=== PATIENT | female | born 1940 | race Caucasian/White ===

== ENCOUNTER 2016-06-08 07:23 | Day surgery (SDC) | payer MEDICARE, OTHER ==
[~2016-06-08] VITALS: Ht 172.7 cm; Wt 51.9 kg
[~2016-06-08 07:23] MED LIST: AMLO10 PO; CARB25TA9 PO; DETR2CAP PO; DULO1CAP3 PO; MAGN400T2 PO; MEMA1TAB2 PO; METO25TA3 PO; PANT40TA3 PO; POTA20TA5 PO; ULTR50TA5 PO
[2016-06-08] MEDS ORDERED: CEFU1TAB20 PO (07:45)
[2016-06-08 07:48] VITALS: BP 169/106; PULSE 85; RESP 20; TEMP 98.2; O2SAT 99
[2016-06-08] MEDS ORDERED: SODIUM CHLOR 0.9% 1000 ML INJ 1,000 ML IV SCH (08:00)
[2016-06-08] MEDS ORDERED: SODIUM BICARBONATE 8.4% INJ 50 ML ONE (08:19)
[2016-06-08] MEDS ORDERED: LIDOCAINE 1%/EPINEPHrine 1:100,000 SOLN 20 ML VIAL ONE (08:19)
[2016-06-08] MEDS ORDERED: MIDAZOLAM HCL 2 MG/2 ML VIAL ONE (08:45)
[2016-06-08 09:10] VITALS: BP 184/99; PULSE 90; RESP 20; TEMP 98.3; O2SAT 99
--- NOTE | 2016-06-08 09:50 | RADRPT ---
EXAM DATE/TIME: 06/08/2016 08:50 [facility] COMPARISON: No previous studies available for comparison. INDICATIONS : Pelvic mass. ORAL CONTRAST: No oral contrast ingested. RADIATION DOSE: 16.88 CTDIvol (mGy) MEDICAL HISTORY : Hypertension. SURGICAL HISTORY : Hysterectomy. ENCOUNTER: Initial ACUITY: 1 day PAIN SCALE: 0/10 LOCATION: Left pelvis TECHNIQUE: Volumetric scanning of the pelvis was performed. Using automated exposure control and adjustment of the mA and/or kV according to patient size, radiation dose was kept as low as reasonably achievable t o obtain optimal diagnostic quality images. FINDINGS: Patient arrived for a CT directed biopsy of the PET positive mass in the left lower quadrant. This h as disappeared on the localizer E. images. The CT scan of the pelvis is otherwise unremarkable. Cholo ateral hip arthroplasties are present. CONCLUSION: Previous described "pelvic mass" is no longer evident. Juwan Michelle MD FACR on June 08, 2016 at 9:35 Board Certified Radiologist. This report was verified electronically.
== END 2016-06-08 09:30 | disposition home or self-care (01) ==
LOC: HRAD 07:23 → HRIP 07:23 → HRAD 09:30
PROVIDERS: ATTEND Internal Medicine Hematology & Oncology
DX: R19.00 Intra-abdominal and pelvic swelling, mass and lump, unspecified site (principal); I10 Essential (primary) hypertension; Z53.9 Procedure and treatment not carried out, unspecified reason
CPT/HCPCS: 72192; G0463; J2250; J3010; 99211

== ENCOUNTER 2017-07-27 15:40 | Inpatient (IN) | payer MEDICARE, OTHER ==
[~2017-07-27] VITALS: Ht 172.7 cm; Wt 50.0 kg
[~2017-07-27 15:40] MED LIST changes: -AMLO10 PO; -DULO1CAP3 PO; -MAGN400T2 PO; -METO25TA3 PO; -POTA20TA5 PO; -ULTR50TA5 PO
[2017-07-27 16:04] VITALS: BP 126/67; PULSE 93; RESP 15; TEMP 98.6; O2SAT 97
[2017-07-27 17:06] VITALS: BP 147/88; PULSE 86; RESP 24; O2SAT 97
[2017-07-27 17:20] LABS: AUTOMATED NEUTROPHIL # 4.8 TH/MM3 (1.8-7.7); BASOPHIL # 0.1 TH/MM3 (0-0.2); BASOPHIL % 0.8 % (0.0-2.0); EOSINOPHIL # 0.4 TH/MM3 (0-0.4); EOSINOPHIL % 6.1 % (0.0-4.0); HEMATOCRIT 35.1 % (35.0-46.0); HEMOGLOBIN 11.8 GM/DL (11.6-15.3); LYMPH % 14.5 % (9.0-44.0); MEAN CELL VOLUME 96.3 FL (80.0-100.0); MEAN CORPUSCULAR HEMOGLOBIN 32.4 PG (27.0-34.0); MEAN CORPUSCULAR HGB CONC 33.6 % (32.0-36.0); MEAN PLATELET VOLUME 10.8 FL (7.0-11.0); MONOCYTE # 0.5 TH/MM3 (0-0.9); NEUT % 70.6 % (16.0-70.0); PLATELET COUNT 177 TH/MM3 (150-450); RED BLOOD COUNT 3.65 MIL/MM3 (4.00-5.30); RED CELL DISTRIBUTION WIDTH 13.4 % (11.6-17.2); WHITE BLOOD COUNT 6.9 TH/MM3 (4.0-11.0)
[2017-07-27] MEDS ORDERED: DULO1CAP3 PO (17:26)
[2017-07-27] MEDS ORDERED: MORP1TAB25 PO (17:26)
[2017-07-27] MEDS ORDERED: OXYC1CAP PO (17:26)
[2017-07-27] MEDS ORDERED: DOCU100C15 PO (17:26)
[2017-07-27 17:32] LABS: ALBUMIN 3.7 GM/DL (3.4-5.0); AST (GOT) 24 U/L (15-37); BLOOD UREA NITROGEN 16 MG/DL (7-18); CALCIUM 8.1 MG/DL (8.5-10.1); CHLORIDE 109 MEQ/L (98-107); CREATININE 1.62 MG/DL (0.50-1.00); GLOMERULAR FILTRATION RATE 31 ML/MIN (>89); GLUCOSE,RANDOM 128 MG/DL (74-106); SODIUM (NA) 144 MEQ/L (136-145)
[2017-07-27 17:33] LABS: ALT (GPT) 15 U/L (10-53)
[2017-07-27 17:35] LABS: ALKALINE PHOSPHATASE 65 U/L (45-117); TOTAL BILIRUBIN ADULT 0.5 MG/DL (0.2-1.0)
--- NOTE | 2017-07-27 18:11 | RADRPT ---
EXAM DATE/TIME: 07/27/2017 17:50 [facility] COMPARISON: MRI BRAIN W & W/O CONTRAST, March 23, 2016, 12:26. INDICATIONS : Altered mental status. Fall few days ago. RADIATION DOSE: 66.34 CTDIvol (mGy) MEDICAL HISTORY : Dementia. Parkinsons. Cardiovascular diseaseLung cancer SURGICAL HISTORY : Hysterectomy. Lobectomy. ENCOUNTER: Initial ACUITY: 3 days PAIN SCALE: 0/10 LOCATION: cranial TECHNIQUE: Multiple contiguous axial images were obtained of the head. Using automated exposure control and adj ustment of the mA and/or kV according to patient size, radiation dose was kept as low as reasonably a chievable to obtain optimal diagnostic quality images. DICOM format image data is available electro nically for review and comparison. FINDINGS: CEREBRUM: The ventricles and cortical sulci are mildly widened. There are areas of low density in the right par ietal and right temporal lobes. No evidence of midline shift, mass lesion, hemorrhage. No extra-axia l fluid collections are seen. POSTERIOR FOSSA: The cerebellum and brainstem are intact. The 4th ventricle is midline. The cerebellopontine angle i s unremarkable. EXTRACRANIAL: The visualized portion of the orbits is intact. SKULL: The calvaria is intact. No evidence of skull fracture. CONCLUSION: 1. There is a low-density in the posterior right temporal and right parietal lobes. This could be fro m subacute areas of infarction. 2. No areas of hemorrhage or significant mass effect are seen. Jordi Doll MD on July 27, 2017 at 18:05 Board Certified Radiologist. This report was verified electronically.
--- NOTE | 2017-07-27 18:19 | RADRPT ---
EXAM DATE/TIME: 07/27/2017 17:50 [facility] COMPARISON: No previous studies available for comparison. INDICATIONS : Altered mental status. Fall a few days ago. RADIATION DOSE: 8.71 CTDIvol (mGy) MEDICAL HISTORY : Dementia. Parkinsons. Cardiovascular diseaseLung cancer SURGICAL HISTORY : Hysterectomy. Lobectomy. ENCOUNTER: Initial ACUITY: 3 days PAIN SCALE: 0/10 LOCATION: neck TECHNIQUE: Volumetric scanning of the cervical spine was performed. Multiplanar reconstructions in the sagittal, coronal and oblique axial planes were performed. Using automated exposure control and adjustment o f the mA and/or kV according to patient size, radiation dose was kept as low as reasonably achievable to obtain optimal diagnostic quality images. DICOM format image data is available electronically f or review and comparison. FINDINGS: VERTEBRAE: Normal vertebral body height. ALIGNMENT: No evidence of subluxation. There is a levocurvature of the cervical spine. C2-C3: The bony spinal canal is normal in size. No evidence of disc bulge or herniation. The neural forami na are bilaterally patent. There is mild facet hypertrophy. C3-C4: The bony spinal canal is normal in size. No evidence of disc bulge or herniation. There is left unc overtebral hypertrophy. There is bilateral facet hypertrophy being worse on the left. There is mild n arrowing of the left neural foramen. The right neural foramina is intact. C4-C5: The bony spinal canal is normal in size. No evidence of disc bulge or herniation. There is left unc overtebral hypertrophy. There is bilateral facet hypertrophy being worse on the left. There is narrow ing of the left neural foramen. The right neural foramina is intact. C5-C6: The bony spinal canal is normal in size. No evidence of disc bulge or herniation. The neural forami na are bilaterally patent. There is bilateral facet hypertrophy being worse on the left. C6-C7: The bony spinal canal is normal in size. No evidence of disc bulge or herniation. The neural forami na are bilaterally patent. There is bilateral facet hypertrophy being worse on the right. C7-T1: The bony spinal canal is normal in size. No evidence of disc bulge or herniation. The neural forami na are bilaterally patent. There is mild facet hypertrophy being worse on the right. CONCLUSION: 1. No acute abnormality seen. 2. Chronic change as described above. Jordi Doll MD on July 27, 2017 at 18:12 Board Certified Radiologist. This report was verified electronically.
--- NOTE | 2017-07-27 18:26 | RADRPT ---
EXAM DATE/TIME: 07/27/2017 18:11 [facility] COMPARISON: No previous studies available for comparison. INDICATIONS : Syncope MEDICAL HISTORY : Dementia, cardiovascular disease SURGICAL HISTORY : Hysterectomy. Lobectomoy ENCOUNTER: Initial ACUITY: 1 day PAIN SCORE: Non-responsive. LOCATION: Bilateral chest FINDINGS: A single view of the chest demonstrates the lungs to be symmetrically aerated without evidence of mas s, infiltrate or effusion. The cardiomediastinal contours are unremarkable. Osseous structures are intact. Clips are seen over the lower right chest. CONCLUSION: No acute disease. Jordi Doll MD on July 27, 2017 at 18:22 Board Certified Radiologist. This report was verified electronically.
[2017-07-27] MEDS ORDERED: POTASSIUM CHLORIDE 10 MEQ CONTROLLED RELEASE TAB PO ONE (18:45)
--- NOTE | 2017-07-27 18:49 | PD ---
HPI Chief Complaint: Altered Mental Status Time Seen by Provider: 17:00 Travel History International Travel<30 days: No Contact w/Intl Traveler<30days: No Traveled to known affect area: No History of Present Illness HPI 77-year-old female presents emergency department with her daughter with concerns of her excessive weakness, delusions, frequent falling for an unknown amount of time. Daughter states that she is from [place] and suspects that this is been going on for 2-3 weeks. Says that she has had a decreased appetite and is concerned that she is dehydrated. 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 Patient apparently has not had chemo in over a month. Says that the patient lives at home with a who has dementia. Patient does have chronic nausea and vomiting secondary to her chemo medication. He has patient denies fever, chills, chest pain, shortness of breath, abdominal pain, leg pain. She does state that she has felt weak and has not felt like moving around and about as normal for the last several weeks. She does not know why. PFSH Past Medical History Arthritis: Yes Asthma: No Autoimmune Disease: No Blood Disorders: No Anxiety: Yes Depression: Yes Heart Rhythm Problems: No Cancer: Yes Cardiovascular Problems: Yes High Cholesterol: Yes Chemotherapy: Yes Chest Pain: No Congestive Heart Failure: No COPD: No Cerebrovascular Accident: No Diabetes: No Diminished Hearing: No Endocrine: No GERD: Yes Glaucoma: No Genitourinary: Yes Hepatitis: No Hiatal Hernia: No Hypertension: Yes Immune Disorder: No Kidney Stones: No Medical other: Yes (PARKINSONS, PSORIASIS) Musculoskeletal: Yes Neurologic: Yes Psychiatric: No Reproductive: No Respiratory: No Migraines: No Radiation Therapy: No Renal Failure: No Seizures: No Sickle Cell Disease: No Sleep Apnea: No Thyroid Disease: No Ulcer: No : 2 Para: 2 Tubal Ligation: Yes Past Surgical History Abdominal Surgery: No AICD: No Arteriovenous Shunt: No Body Medical Devices: LENS Cardiac Surgery: No Section: Yes (X 1) Ear Surgery: No Endocrine Surgery: No Eye Surgery: No Genitourinary Surgery: No Gynecologic Surgery: Yes Hysterectomy: Yes Insulin Pump: No Joint Replacement: Yes (CAROLYN HIPS REPLACED) Oral Surgery: No Pacemaker: No Thoracic Surgery: No Tonsillectomy: Yes Other Surgery: Yes (RIGHT LOBECTOMY) Social History Alcohol Use: No Tobacco Use: No (quit 50 years ago) Substance Use: No Allergies-Medications (Allergen,Severity, Reaction): Coded Allergies: penicillin G (Verified Allergy, Severe, RASH, 07/27/17) INTERMEDIATE REACTION milk (Verified Allergy, Mild, G I DISTRESS, 07/27/17) Sulfa (Sulfonamide Antibiotics) (Verified Adverse Reaction, Severe, GI DISTRESS, 07/27/17) INTERMEDIATE REACTION erythromycin base (Verified Adverse Reaction, Severe, GI DISTRESS, 07/27/17 ) INTERMEDIATE REACTION Reported Meds & Prescriptions Reported Meds & Active Scripts Active Pantoprazole (Pantoprazole Sodium) 40 Mg Tab 40 Mg PO DAILY Carbidopa-Levodopa 25-100 Mg Tab 1 Tab PO Q8HR Detrol LA (Tolterodine Tartrate) 2 Mg Cap 2 Mg PO BID Memantine 10 Mg Tab 10 Mg PO BID Reported Morphine ER (Morphine Sulfate) 30 Mg Tab 30 Mg PO BID Duloxetine DR (Duloxetine HCl) 60 Mg Capdr 60 Mg PO DAILY Oxycodone (Oxycodone HCl) 5 Mg Cap 5 Mg PO Q4H PRN Docusate Sodium 100 Mg Cap 100 Mg PO HS Review of Systems Except as stated in HPI: all other systems reviewed are Neg Physical Exam Narrative GENERAL: Well developed, cachectic appearing SKIN: Focused skin assessment warm/dry. HEAD: Atraumatic. Normocephalic. EYES: Pupils equal and round. No scleral icterus. No injection or drainage. ENT: No nasal bleeding or discharge. Mucous membranes pink and moist. NECK: Trachea midline. No JVD. CARDIOVASCULAR: Regular rate and rhythm. No murmur appreciated. RESPIRATORY: No accessory muscle use. Clear to auscultation. Breath sounds equal bilaterally. GASTROINTESTINAL: Abdomen soft, non-tender, nondistended. Hepatic and splenic margins not palpable. MUSCULOSKELETAL: No obvious deformities. No clubbing. No cyanosis. No edema. NEUROLOGICAL: Awake and alert. No obvious cranial nerve deficits. Motor grossly within normal limits. Normal speech. PSYCHIATRIC: Appropriate mood. Flat affect; insight and judgment normal. Data Data Last Documented VS Vital Signs Date Time Temp Pulse Resp B/P (MAP) Pulse Ox O2 Delivery O2 Flow Rate FiO2 07/27/17 17:06 86 24 147/88 (107) 97 Room Air 07/27/17 16:04 98.6 Orders Orders Complete Blood Count With Diff (07/27/17 16:09) Comprehensive Metabolic Panel (07/27/17 16:09) Urinalysis - C+S If Indicated (07/27/17 16:09) Lactic Acid Sepsis Protocol (07/27/17 16:09) Electrocardiogram (07/27/17 17:45) Ammonia (07/27/17 17:45) Creatine Kinase (Cpk) (07/27/17 17:45) Prothrombin Time / Inr (Pt) (07/27/17 17:45) Act Partial Throm Time (Ptt) (07/27/17 17:45) Troponin I (07/27/17 17:45) Thyroid Stimulating Hormone (07/27/17 17:45) Blood Culture (07/27/17 17:45) Chest, Single Ap (07/27/17 17:45) Ct Brain W/O Iv Contrast(Rout) (07/27/17 17:45) Drug Screen, Random Urine (07/27/17 17:45) Ct Cerv Spine W/O Contrast (07/27/17 ) Potassium Chloride (Kcl) (07/27/17 18:45) Ondansetron Inj (Zofran Inj) (07/27/17 19:15) Potassium Chlor 10 Meq Premix (Kcl 10 Me (07/27/17 19:15) Aspirin Chew (Aspirin Chew) (07/28/17 09:00) Urine Culture (07/27/17 18:30) CKMB (07/27/17 18:20) CKMB% (07/27/17 18:20) Ciprofloxacin 400 Mg Premix (Cipro 400 M (07/27/17 21:00) Place In Observation (07/27/17 ) Vital Signs (Adult) Q4H (07/27/17 19:54) Activity Oob With Assistance (07/27/17 19:54) Intake + Output JOSE.QSHIFT (07/27/17 19:54) Diet Regular Basic (07/28/17 Breakfast) Sodium Chlor 0.9% 1000 Ml Inj (Ns 1000 M (07/27/17 21:00) Sodium Chloride 0.9% Flush (Ns Flush) (07/27/17 20:00) Sodium Chloride 0.9% Flush (Ns Flush) (07/27/17 21:00) Ondansetron Inj (Zofran Inj) (07/27/17 20:00) Comprehensive Metabolic Panel (07/28/17 06:00) Complete Blood Count With Diff (07/28/17 06:00) Pt Request For Service (07/27/17 19:54) Speech Therapy Consult-Eval/Tx (07/27/17 19:54) Case Management Consult (07/27/17 19:54) Scd Bilateral/Knee High JOSE.BID (07/27/17 19:54) Carlos Bilateral/Knee High JOSE.QSHIFT (07/27/17 20:06) Acetaminophen (Tylenol) (07/27/17 20:00) Acetamin-Hydrocod 325-5 Mg ([place] 5-325 (07/27/17 20:00) Morphine Inj (Morphine Inj) (07/27/17 20:00) Docusate Sodium-Senna (Norma-Colace) (07/27/17 21:00) Magnesium Hydroxide Liq (Milk Of Magnesi (07/27/17 20:00) Sennosides (Senokot) (07/27/17 20:00) Bisacodyl Supp (Dulcolax Supp) (07/27/17 20:00) Lactulose Liq (Lactulose Liq) (07/27/17 20:00) Aspirin Ec (Ecotrin Ec) (07/28/17 09:00) Pravastatin (Pravachol) (07/28/17 09:00) Carbidopa-Levodopa 25-100 Mg (Sinemet 25 (07/27/17 22:00) Duloxetine (Flako Braga) (07/28/17 09:00) Memantine (Namenda) (07/27/17 21:00) Pantoprazole (Protonix) (07/28/17 09:00) Tolterodine La (Detrol La) (07/27/17 21:00) Admit Order (Ed Use Only) (07/27/17 20:33) Labs Laboratory Tests Test 07/27/17 16:40 07/27/17 18:15 07/27/17 18:20 07/27/17 18:30 White Blood Count 6.9 TH/MM3 Red Blood Count 3.65 MIL/MM3 Hemoglobin 11.8 GM/DL Hematocrit 35.1 % Mean Corpuscular Volume 96.3 FL Mean Corpuscular Hemoglobin 32.4 PG Mean Corpuscular Hemoglobin Concent 33.6 % Red Cell Distribution Width 13.4 % Platelet Count 177 TH/MM3 Mean Platelet Volume 10.8 FL Neutrophils (%) (Auto) 70.6 % Lymphocytes (%) (Auto) 14.5 % Monocytes (%) (Auto) 8.0 % Eosinophils (%) (Auto) 6.1 % Basophils (%) (Auto) 0.8 % Neutrophils # (Auto) 4.8 TH/MM3 Lymphocytes # (Auto) 1.0 TH/MM3 Monocytes # (Auto) 0.5 TH/MM3 Eosinophils # (Auto) 0.4 TH/MM3 Basophils # (Auto) 0.1 TH/MM3 CBC Comment DIFF FINAL Differential Comment Blood Urea Nitrogen 16 MG/DL Creatinine 1.62 MG/DL Random Glucose 128 MG/DL Total Protein 7.0 GM/DL Albumin 3.7 GM/DL Calcium Level 8.1 MG/DL Alkaline Phosphatase 65 U/L Aspartate Amino Transf (AST/SGOT) 24 U/L Alanine Aminotransferase (ALT/SGPT) 15 U/L Total Bilirubin 0.5 MG/DL Sodium Level 144 MEQ/L Potassium Level 3.2 MEQ/L Chloride Level 109 MEQ/L Carbon Dioxide Level 21.0 MEQ/L Anion Gap 14 MEQ/L Estimat Glomerular Filtration Rate 31 ML/MIN Lactic Acid Level 1.4 mmol/L Ammonia 32 MCMOL/L Prothrombin Time 11.7 SEC Prothromb Time International Ratio 1.2 RATIO Activated Partial Thromboplast Time 24.3 SEC Total Creatine Kinase 214 U/L Creatine Kinase MB 2.1 NG/ML Creatine Kinase MB % 1.0 % Troponin I LESS THAN 0.02 NG/ML Thyroid Stimulating Hormone 3rd Gen 1.720 uIU/ML Urine Color YELLOW Urine Turbidity CLEAR Urine pH 5.5 Urine Specific [place] 1.023 Urine Protein 30 mg/dL Urine Glucose (UA) NEG mg/dL Urine Ketones TRACE mg/dL Urine Occult Blood NEG Urine Nitrite NEG Urine Bilirubin NEG Urine Urobilinogen LESS THAN 2.0 MG/DL Urine Leukocyte Esterase NEG Urine RBC 1 /hpf Urine WBC 1 /hpf Urine WBC Clumps RARE Urine Squamous Epithelial Cells <1 /hpf Urine Bacteria RARE /hpf Urine Hyaline Casts 7 /lpf Urine Mucus FEW /lpf Microscopic Urinalysis Comment CATH-CULTURE IND Urine Opiates Screen NEG Urine Barbiturates Screen NEG Urine Amphetamines Screen NEG Urine Benzodiazepines Screen NEG Urine Cocaine Screen NEG Urine Cannabinoids Screen NEG MDM Medical Decision Making Medical Screen Exam Complete: Yes Emergency Medical Condition: Yes Differential Diagnosis Dehydration, CVA, generalized weakness Narrative Course 77-year-old female with a history of Parkinson's disease, dementia, carcinoid tumor of lung, presents emergency department with her daughter with complaints of altered mental status and weakness for an unknown amount of time. Daughter states that the presumed amount of time has been 2-3 weeks since patient has not been herself according to her conversations over the phone. Patient apparently has chemotherapy approximately once a month but has not gone in over a month according to the daughter. Note that the daughter lives in [place]. Vital signs are stable. CBC & BMP Diagram 07/27/17 16:40 Total Protein 7.0, Albumin 3.7, Calcium Level 8.1 L, Alkaline Phosphatase 65, Aspartate Amino Transf (AST/SGOT) 24, Alanine Aminotransferase (ALT/SGPT) 15, Total Bilirubin 0.5 It appears that her kidney function is stable at this point. Urinalysis unconvincing of a urinary tract infection. TSH 1.720 Troponin less than 0.02. Total CK 214 with CK-MB 2.1, CK-MB percent 1.0 Lactic acid 1.4. P.o. potassium initially ordered however, patient states that she is nauseous. Change to potassium IV 10MeQ, Zofran for nausea CT head reads "1. There is a low density and posterior right temporal and right parietal lobes. This could be from subacute areas of infarction. 2. No areas of hemorrhage or significant mass effects are seen." Chest x-ray, cervical spine CT without acute process. Aspirin 162 mg administered p.o. Patient be admitted for generalized weakness, hypokalemia, possible subacute CVA. Diagnosis Primary Impression: Generalized weakness Additional Impressions: Hypokalemia CVA (cerebral vascular accident) Qualified Codes: I63.9 - Cerebral infarction, unspecified Admitting Information Admitting Physician Requests: Admit Condition: Stable Amie Wray Jul 27, 2017 18:49
[2017-07-27] MEDS ORDERED: POTASSIUM CHLOR 10 MEQ PREMIX 100 ML IV ONE (19:15)
[2017-07-27] MEDS ORDERED: ONDANSETRON HCL 4 MG/2 ML VIAL IV PUSH ONE (19:15)
[2017-07-27 19:18] LABS: INTERNATIONAL NORMALIZED RATIO 1.2 RATIO; PROTHROMBIN TIME - PATIENT 11.7 SEC (9.8-11.6)
[2017-07-27 19:24] LABS: BACTERIA, URINE RARE /hpf; BILIRUBIN, URINE NEG (NEG); BLOOD, URINE NEG (NEG); GLUCOSE,URINE NEG (NEG); HYALINE CAST, URINE 7 /lpf (RARE); KETONE, URINE TRACE mg/dL (NEG); MUCUS URINE FEW /lpf (OCC); NITRITE,URINE NEG (NEG); PH, URINE 5.5 (5.0-8.5); SQUAMOUS EPITHELIAL CELL URINE <1 /hpf (0-5); URINE COLOR YELLOW (YELLW/STRAW); URINE LEUKOCYTE ESTERASE NEG (NEG); WHITE BLOOD CELL CLUMPS RARE
[2017-07-27 19:30] LABS: TROPONIN I LESS THAN 0.02 NG/ML (0.02-0.05)
[2017-07-27] MEDS ORDERED: MAGNESIUM HYDROXIDE SUSP 30 ML CUP PO PRN (20:00)
[2017-07-27] MEDS ORDERED: LACTULOSE SYRUP 20 GM/30 ML CUP PO PRN (20:00)
[2017-07-27] MEDS ORDERED: SENNOSIDES 8.6 MG TAB PO PRN (20:00)
[2017-07-27] MEDS ORDERED: ACETAMINOPHEN/HYDROcodone 325 MG/5 MG TAB PO PRN (20:00)
[2017-07-27] MEDS ORDERED: BISACODYL 10 MG SUPP RECTAL PRN (20:00)
[2017-07-27] MEDS ORDERED: MORPHINE SULFATE 2 MG/ML INJ IV PUSH PRN (20:00)
[2017-07-27] MEDS ORDERED: ACETAMINOPHEN 325 MG TAB PO PRN (20:00)
--- NOTE | 2017-07-27 20:07 | HHI.HP ---
[facility] Desiree Styles MD Admission Diagnosis Diagnoses: (1) Encephalopathy Diagnosis: Principal (2) UTI (urinary tract infection) Diagnosis: Principal (3) CVA (cerebral vascular accident) Diagnosis: Principal (4) Renal insufficiency Diagnosis: Principal Travel History International Travel<30 Days: No Contact w/Intl Traveler <30 Da: No Traveled to Known Affected Are: No History of Present Illness This is a 77-year-old female with a PMH of Anxiety, Depression, HTN, Hyperlipidemia and Parkinson's was brought to the ER by Daughter secondary to AMS. Daughter normally lives in [place], [facility] she visits once a month, arrived today and noticed patient confused and "hallucinating". Per Daughter, pt and live together, has advanced Dementia and believes he hasn 't been giving pt her medications. Pt currently awake, alert and oriented to person, place, time. States she has been feeling week/tired for approx 1wk. Denies fever, chills, nausea, vomiting or diarrhea. On arrival, BP 126/67, HR 93, O2 sat 97% RA, Afebrile. CBC unremarkable. K+ 3.2. Creatinine 1.62, previously 1.40 on 04/15/2017. Troponin negative. INR 1.2. UA positive UTI. Urine Drug Screen negative. CT Head with low density posterior right temporal and right parietal lobes possibly subacute areas of infarction. CXR with no acute findings. CT C-spine negative. Review of Systems Except as stated in HPI: all other systems reviewed are Neg ROS: 14 point review of systems otherwise negative. Past Family Social History Past Medical History PMH: Anxiety, Depression, HTN, Hyperlipidemia and Parkinson's Past Surgical History PAST SURGICAL HISTORY: , Hysterectomy, Bilateral Hip Replacement, Tonsillectomy, Right Lobectomy Allergies: Coded Allergies: penicillin G (Verified Allergy, Severe, RASH, 07/27/17) INTERMEDIATE REACTION milk (Verified Allergy, Mild, G I DISTRESS, 07/27/17) Sulfa (Sulfonamide Antibiotics) (Verified Adverse Reaction, Severe, GI DISTRESS, 07/27/17) INTERMEDIATE REACTION erythromycin base (Verified Adverse Reaction, Severe, GI DISTRESS, 07/27/17 ) INTERMEDIATE REACTION Family History PAST FAMILY HISTORY: Reviewed. No h/o DM or CAD Social History PAST SOCIAL HISTORY: Negative for alcohol, tobacco or drugs. Physical Exam Vital Signs Vital Signs Date Time Temp Pulse Resp B/P (MAP) Pulse Ox O2 Delivery O2 Flow Rate FiO2 07/27/17 17:06 86 24 147/88 (107) 97 Room Air 07/27/17 16:04 98.6 93 15 126/67 (86) 97 Physical Exam PE: GENERAL: Thin, frail elderly white female in no acute distress. Appears weak/ tired. Daughter at bedside. HEENT: PERRLA, EOMI. No scleral icterus or conjunctival pallor. No lid lag or facial droop. Dry mucous membranes CARDIOVASCULAR: Regular rate and rhythm. No obvious murmurs to auscultation. No chest tenderness to palpation. RESPIRATORY: No obvious rhonchi or wheezing. Clear to auscultation. Breath sounds equal bilaterally. GASTROINTESTINAL: Abdomen soft, non-tender, nondistended. BS normal. MUSCULOSKELETAL: Extremities without clubbing, cyanosis, or edema. No obvious deformities. NEUROLOGICAL: Awake, alert and oriented x4. No focal neurologic deficits. Moving both upper and lower extremities spontaneously. Laboratory Laboratory Tests Test 07/27/17 16:40 07/27/17 18:15 07/27/17 18:20 07/27/17 18:30 White Blood Count 6.9 Red Blood Count 3.65 Hemoglobin 11.8 Hematocrit 35.1 Mean Corpuscular Volume 96.3 Mean Corpuscular Hemoglobin 32.4 Mean Corpuscular Hemoglobin Concent 33.6 Red Cell Distribution Width 13.4 Platelet Count 177 Mean Platelet Volume 10.8 Neutrophils (%) (Auto) 70.6 Lymphocytes (%) (Auto) 14.5 Monocytes (%) (Auto) 8.0 Eosinophils (%) (Auto) 6.1 Basophils (%) (Auto) 0.8 Neutrophils # (Auto) 4.8 Lymphocytes # (Auto) 1.0 Monocytes # (Auto) 0.5 Eosinophils # (Auto) 0.4 Basophils # (Auto) 0.1 CBC Comment DIFF FINAL Differential Comment Blood Urea Nitrogen 16 Creatinine 1.62 Random Glucose 128 Total Protein 7.0 Albumin 3.7 Calcium Level 8.1 Alkaline Phosphatase 65 Aspartate Amino Transf (AST/SGOT) 24 Alanine Aminotransferase (ALT/SGPT) 15 Total Bilirubin 0.5 Sodium Level 144 Potassium Level 3.2 Chloride Level 109 Carbon Dioxide Level 21.0 Anion Gap 14 Estimat Glomerular Filtration Rate 31 Lactic Acid Level 1.4 Ammonia 32 Prothrombin Time 11.7 Prothromb Time International Ratio 1.2 Activated Partial Thromboplast Time 24.3 Total Creatine Kinase 214 Creatine Kinase MB 2.1 Creatine Kinase MB % 1.0 Troponin I LESS THAN 0.02 Thyroid Stimulating Hormone 3rd Gen 1.720 Urine Color YELLOW Urine Turbidity CLEAR Urine pH 5.5 Urine Specific Hodges 1.023 Urine Protein 30 Urine Glucose (UA) NEG Urine Ketones TRACE Urine Occult Blood NEG Urine Nitrite NEG Urine Bilirubin NEG Urine Urobilinogen LESS THAN 2.0 Urine Leukocyte Esterase NEG Urine RBC 1 Urine WBC 1 Urine WBC Clumps RARE Urine Squamous Epithelial Cells <1 Urine Bacteria RARE Urine Hyaline Casts 7 Urine Mucus FEW Microscopic Urinalysis Comment CATH-CULTURE IND Urine Opiates Screen NEG Urine Barbiturates Screen NEG Urine Amphetamines Screen NEG Urine Benzodiazepines Screen NEG Urine Cocaine Screen NEG Urine Cannabinoids Screen NEG Date/Time Source Procedure Growth Status 07/27/17 18:20 Blood Peripheral Aerobic Blood Culture Pending Received 07/27/17 18:20 Blood Peripheral Anaerobic Blood Culture Pending Received 07/27/17 18:30 Urine Catheterized Urine Urine Culture Pending Received Result Diagram: 07/27/17163907/27/17 1640 Caprini VTE Risk Assessment Parvizrini VTE Risk Assessment: No/Low Risk (score <= 1) Caprini Risk Assessment Model Point Value = 1 Point Value = 2 Point Value = 3 Point Value = 5 Age 41-60 Minor surgery BMI > 25 kg/m2 Swollen legs Varicose veins or History of unexplained or recurrent spontaneous Oral contraceptives or hormone replacement Sepsis (< 1 month) Serious lung disease, including pneumonia (< 1 month) Abnormal pulmonary function Acute myocardial infarction Congestive heart failure (< 1 month) History of inflammatory bowel disease Medical patient at bed rest Age 61-74 Arthroscopic surgery Major open surgery (> 45 min) Laparoscopic surgery (> 45 min) Malignancy Confined to bed (> 72 hours) Immobilizing plaster cast Central venous access Age >= 75 History of VTE Family history of VTE Factor V Leiden Prothrombin [id number] Lupus anticoagulant Anticardiolipin antibodies Elevated serum homocysteine Heparin-induced thrombocytopenia Other congenital or acquired thrombophilia Stroke (< 1 month) Elective arthroplasty Hip, pelvis, or leg fracture Acute spinal cord injury (< 1 month) Prophylaxis Regimen Total Risk Factor Score Risk Level Prophylaxis Regimen 0-1 Low Early ambulation 2 Moderate Order ONE of the following: *Sequential Compression Device (SCD) *Heparin 5000 units SQ BID 3-4 Higher Order ONE of the following medications: *Heparin 5000 units SQ TID *Enoxaparin/Lovenox 40 mg SQ daily (WT < 150 kg, CrCl > 30 mL/min) *Enoxaparin/Lovenox 30 mg SQ daily (WT < 150 kg, CrCl > 10-29 mL/min) *Enoxaparin/Lovenox 30 mg SQ BID (WT < 150 kg, CrCl > 30 mL/min) AND/OR *Sequential Compression Device (SCD) 5 or more Highest Order ONE of the following medications: *Heparin 5000 units SQ TID (Preferred with Epidurals) *Enoxaparin/Lovenox 40 mg SQ daily (WT < 150 kg, CrCl > 30 mL/min) *Enoxaparin/Lovenox 30 mg SQ daily (WT < 150 kg, CrCl > 10-29 mL/min) *Enoxaparin/Lovenox 30 mg SQ BID (WT < 150 kg, CrCl > 30 mL/min) AND *Sequential Compression Device (SCD) Assessment and Plan Problem List: (1) Encephalopathy ICD Code: G93.40 - Encephalopathy, unspecified (2) CVA (cerebral vascular accident) ICD Code: I63.9 - Cerebral infarction, unspecified Status: Acute (3) UTI (urinary tract infection) ICD Code: N39.0 - Urinary tract infection, site not specified (4) Renal insufficiency ICD Code: N28.9 - Disorder of kidney and ureter, unspecified Assessment and Plan A/P: 1. Encephalopathy: Likely multifactorial-UTI/Dehydration/CVA/Dementia. CT Head w/ subacute CVA, no acute findings, images reviewed by me. Neuro Cheks. Resume home Sinemet/Namenda. 2. CVA: CT Head w/ likely subacute CVA right temporal and right parietal lobes , images reviewed by me. Start ASA and Statin. PT for eval/tx. Speech Consult for Swallow Eval. Consult Neurology for further recommendations. 3. UTI: U/a w/ UTI, follow up urine cultures, start IV Cipro, IVF. 4. Renal Insufficiency: Acute on Chronic. Creatinine 1.62, previously 1.40 on 04/15/2017. IVF for hydration, repeat labs in a.m. 5. DVT Prophylaxis: SCDs/teds. 6. Social work for DC planning as needed. 7. Case discussed at length with the ER physician, lab/record/imaging reviewed by me. Plan discussed at length with patient and patient's daughter at bedside Problem Qualifiers (1) CVA (cerebral vascular accident): Qualified Codes: I63.9 - Cerebral infarction, unspecified Cheyenne Weldon MD Jul 27, 2017 20:07
[2017-07-27] MEDS: DOCUSATE SODIUM 50 MG/SENNA 8.6 MG TAB PO SCH (21:00)
[2017-07-27 22:41] VITALS: BP 185/93; PULSE 86; RESP 18; TEMP 98.1; O2SAT 96
[2017-07-27] MEDS ORDERED: PANTOPRAZOLE SOD 40 MG DELAYED RELEASE TAB PO ONE (23:15)
[2017-07-27] MEDS: CIPROFLOXACIN 400 MG PREMIX 200 ML IV SCH (23:20)
[2017-07-27] MEDS: cloNIDine HCL 0.1 MG TAB PO PRN (23:20)
[2017-07-27] MEDS: CARBIDOPA/LEVODOPA 25 MG/100 MG TAB PO SCH (23:20)
[2017-07-28] MEDS: MEMANTINE HCL 10 MG TAB PO SCH ×3 (00:42→22:18)
[2017-07-28] MEDS: SODIUM CHLORIDE 0.9% FLUSH 10 ML FLUSH IV FLUSH SCH ×3 (00:42→21:00)
[2017-07-28] MEDS: TOLTERODINE TARTRATE 2 MG CAP LA PO SCH ×3 (00:42→22:18)
[2017-07-28] MEDS: SODIUM CHLOR 0.9% 1000 ML INJ 1,000 ML IV SCH ×4 (00:42→22:42)
[2017-07-28] MEDS: ONDANSETRON HCL 4 MG/2 ML VIAL IVP PRN ×3 (00:43→10:17)
[2017-07-28 03:56] VITALS: BP 161/85; PULSE 85; RESP 18; TEMP 98.1; O2SAT 96
[2017-07-28] MEDS: CARBIDOPA/LEVODOPA 25 MG/100 MG TAB PO SCH (06:00)
[2017-07-28 06:39] LABS: AUTOMATED NEUTROPHIL # 4.5 TH/MM3 (1.8-7.7); BASOPHIL % 0.9 % (0.0-2.0); EOSINOPHIL # 0.1 TH/MM3 (0-0.4); EOSINOPHIL % 2.1 % (0.0-4.0); HEMATOCRIT 29.2 % (35.0-46.0); HEMOGLOBIN 9.9 GM/DL (11.6-15.3); LYMPH % 10.9 % (9.0-44.0); LYMPHOCYTE # 0.6 TH/MM3 (1.0-4.8); MEAN CELL VOLUME 95.7 FL (80.0-100.0); MEAN CORPUSCULAR HEMOGLOBIN 32.4 PG (27.0-34.0); MEAN CORPUSCULAR HGB CONC 33.8 % (32.0-36.0); MEAN PLATELET VOLUME 10.9 FL (7.0-11.0); MONO % 4.9 % (0.0-8.0); MONOCYTE # 0.3 TH/MM3 (0-0.9); NEUT % 81.2 % (16.0-70.0); PLATELET COUNT 136 TH/MM3 (150-450); RED BLOOD COUNT 3.05 MIL/MM3 (4.00-5.30); RED CELL DISTRIBUTION WIDTH 13.3 % (11.6-17.2); WHITE BLOOD COUNT 5.5 TH/MM3 (4.0-11.0)
[2017-07-28 07:49] LABS: ALBUMIN 3.1 GM/DL (3.4-5.0); BICARBONATE 19.6 MEQ/L (21.0-32.0); CALCIUM 6.9 MG/DL (8.5-10.1); CALCIUM-PROTEIN CORRECTED 7.6 MG/DL (8.5-10.1); CREATININE 1.53 MG/DL (0.50-1.00); TOTAL BILIRUBIN ADULT 0.4 MG/DL (0.2-1.0); TOTAL PROTEIN 5.7 GM/DL (6.4-8.2)
[2017-07-28] MEDS ORDERED: ASPIRIN 81 MG CHEW TAB CHEW SCH (09:00)
[2017-07-28 09:50] VITALS: BP 186/89; PULSE 83; RESP 18
[2017-07-28] MEDS: PRAVASTATIN SOD 40 MG TAB PO SCH (09:53)
[2017-07-28] MEDS: PANTOPRAZOLE SOD 40 MG DELAYED RELEASE TAB PO SCH (09:53)
[2017-07-28] MEDS: CIPROFLOXACIN 400 MG PREMIX 200 ML IV SCH (09:53)
[2017-07-28] MEDS: ASPIRIN EC 81 MG TABEC PO SCH (09:54)
[2017-07-28] MEDS: DULoxetine HCl DR 60 MG CAP PO SCH (09:54)
[2017-07-28] MEDS: DOCUSATE SODIUM 50 MG/SENNA 8.6 MG TAB PO SCH ×2 (09:54→22:18)
[2017-07-28] MEDS: cloNIDine HCL 0.1 MG TAB PO PRN (10:17)
[2017-07-28] MEDS: SODIUM CHLORIDE 0.9% FLUSH 10 ML FLUSH IV FLUSH PRN ×2 (10:17→15:01)
[2017-07-28 12:35] VITALS: BP 152/79; PULSE 81; RESP 20; TEMP 98.2; O2SAT 96
--- NOTE | 2017-07-28 13:23 | MB ---
cc: Jimmie Salazar MD DATE: 07/28/2017 HISTORY OF PRESENT ILLNESS: She is seen in neurological consultation. She is a 77-year-old woman with history of Parkinson's, some apparent history of dementia and came to the hospital because of altered mentation. Apparently, she cares for her with dementia. The patient tells me it is a 2-way around as he also helps care for her. Daughter visiting from out of state found apparent increasing confusion, hallucinations. She was brought to the hospital. The patient tells me she takes carbidopa 2 tablets every 6 hours, though the list of medication describes as 1 tablet 3 times a day or so. NEUROLOGIC EXAMINATION: Showed the patient to be in some distress. She was nauseated and vomiting, but she was reasonably alert, seems to be grossly oriented, following commands. Appears frail overall. I saw intermittent left hand parkinsonian tremor. She is rigid especially in the lower extremities while lying in bed. It is difficult to flex her knees, but she will wiggle the feet and she started raising either lower extremity on commands. Reflexes were diminished versus absent and plantar responses were flexor bilaterally. DIAGNOSTIC DATA: The CT brain shows possible subacute right temporal infarct. Other ancillary data includes white count today 5.5, hemoglobin 9.9, platelets 136. Sodium 144, potassium 3.4, glucose 122, BUN 16, creatinine 1.53. Urinalysis is negative. ASSESSMENT: 1. Possible subacute right temporal infarct. 2. Parkinson's with dementia. 3. Hallucinations. 4. Encephalopathy. PLAN: We will hold off the Sinemet as this may aggravate hallucinations and confusion. We will request an MRI brain without contrast. Some sedation might be needed. She is on aspirin, Cymbalta, Protonix, memantine. I will follow the neurological course. Otherwise, physical therapy already initiated. Thank you for asking us to assist in her care. Jimmie Salazar MD OFC/SB , 01:03 PM , 01:22 PM
--- NOTE | 2017-07-28 14:20 | HHI.PR ---
Subjective Remarks Pt seen around lunch time Pt feeling nauseous when I saw her, threw up. Admits to epigastric pain due to vomiting. no chest pains, SOB. Objective Vitals Vital Signs Date Time Temp Pulse Resp B/P (MAP) Pulse Ox O2 Delivery O2 Flow Rate FiO2 07/28/17 12:35 98.2 81 20 152/79 (103) 96 07/28/17 09:50 83 18 186/89 (121) 07/28/17 03:56 98.1 85 18 161/85 (110) 96 07/27/17 22:41 98.1 86 18 185/93 (123) 96 07/27/17 21:37 07/27/17 17:06 86 24 147/88 (107) 97 Room Air 07/27/17 16:04 98.6 93 15 126/67 (86) 97 I/O 07/27/17 07/27/17 07/27/17 07/28/17 07/28/17 07/28/17 07:00 15:00 23:00 07:00 15:00 23:00 Intake Total 1200 ml Balance 1200 ml Intake IV Total 1200 ml # Voids 1 Result Diagram: 07/28/17 0507/28/17 05 Objective Remarks GENERAL: Thin, frail elderly white female, Appears weak/tired. HEENT: EOMI. CARDIOVASCULAR: Regular rate and rhythm. No obvious murmurs to auscultation. RESPIRATORY: No obvious wheezing. Clear to auscultation. GASTROINTESTINAL: Abdomen soft, some epigastric tenderness, nondistended. BS normal. MUSCULOSKELETAL: Extremities without edema. No obvious deformities. NEUROLOGICAL: Awake, alert and oriented, Moving both upper and lower extremities spontaneously. some tremors noted in upper extremities A/P Problem List: (1) Encephalopathy ICD Code: G93.40 - Encephalopathy, unspecified (2) CVA (cerebral vascular accident) ICD Code: I63.9 - Cerebral infarction, unspecified Status: Acute (3) UTI (urinary tract infection) ICD Code: N39.0 - Urinary tract infection, site not specified (4) Renal insufficiency ICD Code: N28.9 - Disorder of kidney and ureter, unspecified Assessment and Plan 1. Encephalopathy: Likely multifactorial-UTI/Dehydration/CVA/Dementia. CT Head w/ subacute CVA, no acute findings. continue w Neuro Cheks. hold Sinemet/ Namenda per neuro recs. 2. CVA: CT Head w/ likely subacute CVA right temporal and right parietal lobes. on ASA and Statin. PT for eval/tx. Speech Consult for Swallow Eval. Neurology evaluated the pt and ordered MRI 3. UTI: U/a w/ UTI, follow up urine cultures, on IV Cipro, IVF. thus far, urine and blood cx neg to date 4. Renal Insufficiency: Acute on Chronic. Creatinine 1.62-->1.53, previously 1.40 on 04/15/2017. IVF for hydration, repeat labs in a.m. 5. DVT Prophylaxis: SCDs/teds. 6. n/v: on zofran prn added reglan IV Discharge Planning f/u MRI. Added reglan IV to help w n/v f/u recs from neurology Problem Qualifiers (1) CVA (cerebral vascular accident): Qualified Codes: I63.9 - Cerebral infarction, unspecified Roma Espinosa MD Jul 28, 2017 14:20
[2017-07-28] MEDS ORDERED: LORazepam 2 MG/ML VIAL IV PUSH ONE (14:30)
[2017-07-28] MEDS: METOCLOPRAMIDE HCL 10 MG/2 ML VIAL IV PUSH SCH ×2 (15:01→22:18)
--- NOTE | 2017-07-28 15:43 | RADRPT ---
EXAM DATE/TIME: 07/28/2017 15:10 [facility] COMPARISON: CT BRAIN W/O CONTRAST, July 27, 2017, 17:50. INDICATIONS : CVA. Bilateral lower extremity weakness. MEDICAL HISTORY : Hypertension. Carcinoma, lung. Dementia. SURGICAL HISTORY : Tonsillectomy. Lobectomy. Hysterectomy. Bilateral hip replacement. ENCOUNTER: Initial ACUITY: 1 day PAIN SCORE: 0/10 LOCATION: cranial TECHNIQUE: Multiplanar, multisequence MRI of the brain was performed without contrast. FINDINGS: CEREBRUM: The ventricles are normal for age. There is increased signal seen on the diffusion, flair and T2-ariel ghted images at the posterior right temporal and the right parietal lobes consistent with subacute ar ea of infarction. Hemorrhage is not seen. No evidence of midline shift, mass lesion, hemorrhage. No extraaxial fluid collections are seen. The pituitary gland and suprasellar cistern are normal in con figuration. WHITE MATTER: There are scattered focal areas of increased signal in the cerebral white matter. POSTERIOR FOSSA: The cerebellum and brainstem are intact. The 4th ventricle is midline. The cerebellopontine angle is unremarkable. The cerebellar tonsils are normal in position. DIFFUSION IMAGING: Again noted is the subacute area of infarction involving the right temporal and parietal lobes. EXTRACRANIAL: The visualized portions of the orbits and paranasal sinuses are unremarkable. CONCLUSION: 1. Subacute infarction at the posterior right middle cerebral artery territory involving portions of the right temporal and parietal lobes. The increased signal on the flair, diffusion and T2 images sug gest this is at least 24 hours old. 2. Scattered suspected small vessel ischemic change in the white matter. Jordi Doll MD on July 28, 2017 at 15:36 Board Certified Radiologist. This report was verified electronically.
[2017-07-28 17:20] VITALS: BP 151/83; PULSE 96; RESP 16; TEMP 98.3; O2SAT 97
--- NOTE | 2017-07-28 19:48 | EKG ---
Date Performed: 07/27/2017 Time Performed: 18:54:28 PTAGE: 77 years EKG: Sinus rhythm LEFT ATRIAL ENLARGEMENT INCOMPLETE RIGHT BUNDLE BRANCH BLOCK Since the previous tracing, no signific ant change noted ABNORMAL ECG PREVIOUS TRACING : 07/06/2014 08.52 DOCTOR: Audra Navarro Interpretating Date/Time 07/28/2017 19:46:19
[2017-07-28 20:52] VITALS: BP 163/83; PULSE 90; RESP 18; TEMP 98.7; O2SAT 95
[2017-07-28] MEDS: CIPROFLOXACIN 500 MG TAB PO SCH (22:17)
[2017-07-29 01:09] VITALS: BP 157/82; PULSE 77; RESP 18; TEMP 98.3; O2SAT 95
[2017-07-29] MEDS: METOCLOPRAMIDE HCL 10 MG/2 ML VIAL IV PUSH SCH ×2 (06:13→16:09)
[2017-07-29 07:52] VITALS: BP 169/91; PULSE 78; RESP 18; TEMP 98.4; O2SAT 95
[2017-07-29] MEDS: cloNIDine HCL 0.1 MG TAB PO PRN (09:06)
[2017-07-29] MEDS: ASPIRIN EC 81 MG TABEC PO SCH (09:06)
[2017-07-29] MEDS: MEMANTINE HCL 10 MG TAB PO SCH (09:07)
[2017-07-29] MEDS: DULoxetine HCl DR 60 MG CAP PO SCH (09:07)
[2017-07-29] MEDS: PRAVASTATIN SOD 40 MG TAB PO SCH (09:07)
[2017-07-29] MEDS: TOLTERODINE TARTRATE 2 MG CAP LA PO SCH (09:07)
[2017-07-29] MEDS: PANTOPRAZOLE SOD 40 MG DELAYED RELEASE TAB PO SCH (09:07)
[2017-07-29] MEDS: CIPROFLOXACIN 500 MG TAB PO SCH (09:07)
[2017-07-29] MEDS: DOCUSATE SODIUM 50 MG/SENNA 8.6 MG TAB PO SCH (09:07)
[2017-07-29] MEDS: SODIUM CHLORIDE 0.9% FLUSH 10 ML FLUSH IV FLUSH SCH ×2 (09:07→21:00)
[2017-07-29] MEDS ORDERED: POTASSIUM CHLORIDE 20 MEQ CONTROLLED RELEASE TAB PO ONE (11:00)
--- NOTE | 2017-07-29 11:52 | RADRPT ---
EXAM DATE/TIME: 07/29/2017 10:57 [facility] COMPARISON: No previous studies available for comparison. INDICATIONS : Cerebrovascular accident. MEDICAL HISTORY : Dementia. Parkinson's. Hypercholesterolemia. CVA. Carcinoma, lung. HTN. Dyspnea. GERD. Irritable ann l. Arthritis. Osteoarthritis. Hay fever. Tobacco use. Depression. Anxiety. SURGICAL HISTORY : Tonsillectomy. Tubal ligation. Hysterectomy. Right lobectomy. section. Bilateral hip replace ments. Chemotherapy. Blood transfusions. ENCOUNTER: Initial ACUITY: 1 day PAIN SCORE: 0/10 LOCATION: Bilateral neck PEAK SYSTOLIC VELOCITIES (cm/sec): ICA/CCA RATIO: Right: 0.9 Left: 1.0 ICA: Right: 62 Left: 74 CCA: Right: 70 Left: 73 ECA: Right: 50 Left: 58 VERTEBRAL: Right: 44 antegrade Left: 46 antegrade Elevated flow velocities and ICA/CCA ratios have been found to correlate with increased degrees of vessel stenosis, calculated as percentage of diameter relative to a normal segment of distal ICA/CCA FINDINGS: RIGHT CAROTID: No significant stenosis is visualized. Mild plaquing is noted in the carotid bulb and proximal inter nal carotid artery. The waveforms are within normal limits. LEFT CAROTID: No significant stenosis is visualized. I'll plaquing is noted in the carotid bulb and proximal architectural intern al carotid artery. The waveforms are within normal limits. VERTEBRAL ARTERIES: Antegrade flow is seen in both vertebral arteries. MISCELLANEOUS: None. CONCLUSION: Mild bilateral plaquing with no evidence of a hemodynamically significant stenosis. Ethan Zurita MD on July 29, 2017 at 11:48 Board Certified Radiologist. This report was verified electronically.
[2017-07-29 12:56] VITALS: BP 172/94; PULSE 76; RESP 16; TEMP 98.2; O2SAT 96
--- NOTE | 2017-07-29 14:52 | HHI.PR ---
Subjective Remarks Patient seen this morning. Says she is feeling all right. Denies any chest pain or shortness of breath. Says she feels generally fatigued. Does not feel hungry. Feels weak. Denies any chest pain or shortness of breath. Objective Vital Signs Date Time Temp Pulse Resp B/P (MAP) Pulse Ox O2 Delivery O2 Flow Rate FiO2 07/29/17 12:56 98.2 76 16 172/94 (120) 96 07/29/17 07:52 98.4 78 18 169/91 (117) 95 07/29/17 01:09 98.3 77 18 157/82 (107) 95 07/28/17 20:52 98.7 90 18 163/83 (109) 95 07/28/17 17:20 98.3 96 16 151/83 (105) 97 I/O 07/28/17 07/28/17 07/28/17 07/29/17 07/29/17 07/29/17 07:00 15:00 23:00 07:00 15:00 23:00 Intake Total 1200 ml Balance 1200 ml Intake IV Total 1200 ml # Voids 2 1 2 Result Diagram: 07/28/17 0526 07/28/17 0526 Imaging Last Impressions Brain MRI 07/28/17 0000 Signed Impressions: Service Date/Time: Friday, July 28, 2017 15:10 - CONCLUSION: 1. Subacute infarction at the posterior right middle cerebral artery territory involving portions of the right temporal and parietal lobes. The increased signal on the flair, diffusion and T2 images suggest this is at least 24 hours old. 2. Scattered suspected small vessel ischemic change in the white matter. Jordi Doll MD Head CT 07/27/17 1745 Signed Impressions: Service Date/Time: Thursday, July 27, 2017 17:50 - CONCLUSION: 1. There is a low-density in the posterior right temporal and right parietal lobes. This could be from subacute areas of infarction. 2. No areas of hemorrhage or significant mass effect are seen. Jordi Doll MD Chest X-Ray 07/27/17 174 Signed Impressions: Service Date/Time: Thursday, July 27, 2017 18:11 - CONCLUSION: No acute disease. Jordi Doll MD Cervical Spine CT 07/27/17 0000 Signed Impressions: Service Date/Time: Thursday, July 27, 2017 17:50 - CONCLUSION: 1. No acute abnormality seen. 2. Chronic change as described above. Jordi Doll MD Objective Remarks GENERAL: Patient sitting up in bed. Appears comfortable. Sleeping, wakes up for exam. SKIN: Warm and dry. HEAD: Normocephalic. EYES: No scleral icterus. No injection or drainage. NECK: Supple, trachea midline. No JVD or lymphadenopathy. CARDIOVASCULAR: Regular rate and rhythm without murmurs, gallops, or rubs. RESPIRATORY: Breath sounds equal bilaterally. No accessory muscle use. GASTROINTESTINAL: Abdomen soft, non-tender, nondistended. MUSCULOSKELETAL: No cyanosis, or edema. BACK: Nontender without obvious deformity. No CVA tenderness. A/P Assessment and Plan // Encephalopathy: Likely multifactorial-UTI/Dehydration/CVA/Dementia. CT Head w/ subacute CVA, no acute findings. continue w Neuro Cheks. hold Sinemet/ Namenda per neuro recs. = Appears somnolent but oriented to place, month. = B12 pending. Thiamine started. //Dehydration. Continue IV fluids. = Consult dietitian for calorie count // CVA: CT Head w/ likely subacute CVA right temporal and right parietal lobes. on ASA and Statin. PT for eval/tx. Speech Consult for Swallow Eval. Neurology evaluated the pt and ordered MRI = 07/29. MRI with subacute infarct temporal lobe. Appreciate neurology assistance. Continue to monitor. Ultrasound carotids ordered with no significant stenosis, echocardiogram ordered and pending. // UTI: U/a w/ UTI, follow up urine cultures, on IV Cipro, IVF. thus far, urine and blood cx neg to date = No growth on UA. Discontinue Cipro //Renal Insufficiency: -Secondary to dehydration acute on Chronic. Creatinine 1.62-->1.53, previously 1.40 on 04/15/2017. IVF for hydration, repeat labs in a.m. = Creatinine improving 1.5. Continue to monitor. //n/v: on zofran prn added reglan IV = Appears improved today. Continue to monitor. //DVT Prophylaxis: SCDs/teds. Discharge Planning Follow-up neurology recommendations Continue on IV fluids for dehydration. Await calorie count Robin Cadet MD Jul 29, 2017 14:52
[2017-07-29] MEDS ORDERED: THIAMINE HCL 100 MG TAB PO ONE (15:00)
[2017-07-29] MEDS ORDERED: CALCIUM GLUCONATE INJ 2 GM in DEXTROSE 5% IN WATER 100ML INJ 100 ML IV ONE ×2 (15:00)
[2017-07-29] MEDS: ENALAPRILAT 1.25 MG/ML VIAL IV PUSH PRN (16:11)
[2017-07-29 18:01] VITALS: BP 186/88; PULSE 70; RESP 16; TEMP 98.1; O2SAT 97
[2017-07-29 18:35] VITALS: BP 143/71
[2017-07-29 23:00] VITALS: BP 142/69; PULSE 76; RESP 16; TEMP 98.8; O2SAT 94
[2017-07-30] VITALS (7 sets, daily range): BP systolic 156–198; BP diastolic 79–104; PULSE 67–83; RESP 12–18; TEMP 98.3–99.3; O2SAT 95–98
[2017-07-30] MEDS: METOCLOPRAMIDE HCL 10 MG/2 ML VIAL IV PUSH SCH ×4 (01:10→21:22)
[2017-07-30] MEDS: MEMANTINE HCL 10 MG TAB PO SCH ×3 (01:10→21:21)
[2017-07-30] MEDS: TOLTERODINE TARTRATE 2 MG CAP LA PO SCH ×3 (01:10→21:21)
[2017-07-30] MEDS: DOCUSATE SODIUM 50 MG/SENNA 8.6 MG TAB PO SCH ×3 (01:11→21:21)
[2017-07-30] MEDS: POTASSIUM CHLORIDE INJ 20 MEQ in SODIUM CHLOR 0.9% 1000 ML INJ 1,000 ML IV SCH ×2 (07:06→07:56)
[2017-07-30] MEDS: ASPIRIN EC 81 MG TABEC PO SCH (07:55)
[2017-07-30] MEDS: PANTOPRAZOLE SOD 40 MG DELAYED RELEASE TAB PO SCH (07:55)
[2017-07-30] MEDS: DULoxetine HCl DR 60 MG CAP PO SCH (07:55)
[2017-07-30] MEDS: PRAVASTATIN SOD 40 MG TAB PO SCH (07:55)
[2017-07-30] MEDS: THIAMINE HCL 100 MG TAB PO SCH (07:55)
[2017-07-30] MEDS: SODIUM CHLORIDE 0.9% FLUSH 10 ML FLUSH IV FLUSH SCH ×2 (07:56→21:00)
[2017-07-30] MEDS ORDERED: DOCUSATE SODIUM 50 MG/SENNA 8.6 MG TAB PO ONE (12:15)
[2017-07-30] MEDS ORDERED: MAGNESIUM HYDROXIDE SUSP 30 ML CUP PO ONE (12:15)
[2017-07-30] MEDS ORDERED: CHOLECALCIFEROL (VIT D3) 5000 UNIT CAP PO ONE (12:15)
--- NOTE | 2017-07-30 12:20 | HHI.PR ---
Subjective Remarks Patient says she is feeling all right. Denies any chest pain or shortness of breath. Denies any nausea or vomiting. Last bowel movement several days ago says she is not would have a bowel movement here. Objective Vital Signs Date Time Temp Pulse Resp B/P (MAP) Pulse Ox O2 Delivery O2 Flow Rate FiO2 07/30/17 11:12 98.3 77 16 159/79 (105) 97 07/30/17 07:14 98.3 67 12 156/82 (106) 95 07/30/17 04:22 98.6 72 15 161/86 (111) 97 07/29/17 23:00 98.8 76 16 142/69 (93) 94 07/29/17 18:35 143/71 (95) 07/29/17 18:01 98.1 70 16 186/88 (120) 97 07/29/17 12:56 98.2 76 16 172/94 (120) 96 I/O 07/29/17 07/29/17 07/29/17 07/30/17 07/30/17 07/30/17 07:00 15:00 23:00 07:00 15:00 23:00 Output Total 600 ml Balance -600 ml Output Urine Total 600 ml # Voids 2 3 # Bowel Movements 1 Result Diagram: 07/28/1752507/28/17525 Objective Remarks GENERAL: Patient sitting up in bed. Appears comfortable. Awake, alert. Oriented 3 SKIN: Warm and dry. HEAD: Normocephalic. EYES: No scleral icterus. No injection or drainage. NECK: Supple, trachea midline. No JVD or lymphadenopathy. CARDIOVASCULAR: Regular rate and rhythm without murmurs, gallops, or rubs. RESPIRATORY: Breath sounds equal bilaterally. No accessory muscle use. GASTROINTESTINAL: Abdomen soft, non-tender, nondistended. MUSCULOSKELETAL: No cyanosis, or edema. BACK: Nontender without obvious deformity. No CVA tenderness. A/P Assessment and Plan // Encephalopathy: Likely multifactorial-UTI/Dehydration/CVA/Dementia. CT Head w/ subacute CVA, no acute findings. continue w Neuro Cheks. hold Sinemet/ Namenda per neuro recs. = Appears somnolent but oriented to place, month. = B12 pending. Thiamine started. = Much improved. B12 within normal limits. Continue thiamine. //Dehydration. Continue IV fluids. = Consult dietitian for calorie count = Continue calorie count. Continue IV fluids //Hypovitaminosis D. Order vitamin D. Recheck in 2 months. // CVA: CT Head w/ likely subacute CVA right temporal and right parietal lobes. on ASA and Statin. PT for eval/tx. Speech Consult for Swallow Eval. Neurology evaluated the pt and ordered MRI = 07/29. MRI with subacute infarct temporal lobe. Appreciate neurology assistance. Continue to monitor. Ultrasound carotids ordered with no significant stenosis, echocardiogram ordered and pending. = 07/30. Echocardiogram pending. Aspirin // UTI: U/a w/ UTI, follow up urine cultures, on IV Cipro, IVF. thus far, urine and blood cx neg to date = No growth on UA. Discontinue Cipro //Renal Insufficiency: -Secondary to dehydration acute on Chronic. Creatinine 1.62-->1.53, previously 1.40 on 04/15/2017. IVF for hydration, repeat labs in a.m. = Creatinine improving 1.5. Continue to monitor. = Recheck labs tomorrow //n/v: on zofran prn added reglan IV = Resolved. Continue to monitor. //DVT Prophylaxis: SCDs/teds. Discharge Planning Follow-up neurology recommendations Continue on IV fluids for dehydration. Await calorie count Robin Cadet MD Jul 30, 2017 12:20
--- NOTE | 2017-07-30 14:44 | ECHRPT ---
Indication: CVA/TIA CONCLUSIONS The left ventricular systolic function is normal with an estimated ejection fraction in the range of 55-60%. Normal left ventricular size. Wall thickness is normal. No regional wall motion abnormalities are present. There is trace tricuspid valve regurgitation. The estimated pulmonary arterial pressure is 33 mmHg. BP: 159 / 79 HR: 77 Rhythm: Sinus MEASUREMENTS (Male / Female) Normal Values Technical Quality:Fair 2D ECHO LV Diastolic Diameter PLAX 3.4 cm 4.2 - 5.9 / 3.9 - 5.3 cm LV Systolic Diameter PLAX 2.4 cm IVS Diastolic Thickness 1.1 cm 0.6 - 1.0 / 0.6 - 0.9 cm LVPW Diastolic Thickness 1.1 cm 0.6 - 1.0 / 0.6 - 0.9 cm LV Relative Wall Thickness 0.6 LVOT Diameter 1.9 cm LA Systolic Diameter LX 3.1 cm 3.0 - 4.0 / 2.7 - 3.8 cm LV Ejection Fraction MOD 4C 61.3 % LV Cardiac Index MOD 4C 1910.8 cm/minm LV Ejection Fraction 4C AL 65.3 % LV Cardiac Index 4C AL 2179.5 cm/minm M-MODE Aortic Root Diameter MM 1.9 cm LA Systolic Diameter MM 2.8 cm LA Ao Ratio MM 1.5 AV Cusp Separation MM 1.8 cm DOPPLER AV Peak Velocity 106.0 cm/s AV Peak Gradient 4.5 mmHg LVOT Peak Velocity 79.5 cm/s LVOT Peak Gradient 2.5 mmHg AV Area Cont Eq pk 2.1 cm MV Area PHT 4.3 cm Mitral E Point Velocity 55.3 cm/s Mitral A Point Velocity 99.7 cm/s Mitral E to A Ratio 0.6 LV E' Lateral Velocity 6.9 cm/s Mitral E to LV E' Lateral Ratio 8.1 LV E' Septal Velocity 5.3 cm/s Mitral E to LV E' Septal Ratio 10.5 TR Peak Velocity 240.0 cm/s TR Peak Gradient 23.0 mmHg Right Atrial Pressure 10.0 mmHg Pulmonary Artery Systolic Pressu 33.0 mmHg Right Ventricular Systolic Press 33.0 mmHg PV Peak Velocity 78.7 cm/s PV Peak Gradient 2.5 mmHg FINDINGS LEFT VENTRICLE The left ventricular systolic function is normal with an estimated ejection fraction in the range of 55-60%. Normal left ventricular size. Wall thickness is normal. No regional wall motion abnormalities are present. RIGHT VENTRICLE Normal right ventricular size and systolic function. LEFT ATRIUM The left atrial size is normal. RIGHT ATRIUM The right atrial size is normal. ATRIAL SEPTUM Normal atrial septal thickness without atrial level shunting by limited color doppler interrogation. AORTA The aortic root and proximal ascending aorta are normal in size on limited imaging. MITRAL VALVE Structurally normal mitral valve. No mitral valve stenosis or regurgitation. AORTIC VALVE Trileaflet aortic valve. No aortic valve stenosis or regurgitation. TRICUSPID VALVE Structurally normal tricuspid valve. There is trace tricuspid valve regurgitation. The estimated pulmonary arterial pressure is 33 mmHg. PULMONARY VALVE No pulmonary valve regurgitation or stenosis. VESSELS The inferior vena cava is normal in size. PERICARDIUM No pericardial effusion. Will De Leon MD, FACC, FSCAI (Electronically Signed) Final Date:30 July 2017 14:43
[2017-07-30] MEDS: NS + KCL 20 MEQ INJ 1,000 ML IV SCH (16:31)
[2017-07-30] MEDS: CALCIUM/VITAMIN D 250 MG/125 U TAB PO SCH (21:21)
[2017-07-30] MEDS: ENALAPRILAT 1.25 MG/ML VIAL IV PUSH PRN (21:22)
[2017-07-31] VITALS (7 sets, daily range): BP systolic 163–206; BP diastolic 83–110; PULSE 71–78; RESP 16–20; TEMP 97.6–99.3; O2SAT 95–97
[2017-07-31] MEDS: cloNIDine HCL 0.1 MG TAB PO PRN (00:59)
[2017-07-31] MEDS: NS + KCL 20 MEQ INJ 1,000 ML IV SCH ×2 (01:00→08:36)
[2017-07-31] MEDS: METOCLOPRAMIDE HCL 10 MG/2 ML VIAL IV PUSH SCH ×3 (05:31→20:22)
[2017-07-31] MEDS: SODIUM CHLORIDE 0.9% FLUSH 10 ML FLUSH IV FLUSH SCH ×2 (07:27→20:22)
[2017-07-31 07:31] LABS: AUTOMATED NEUTROPHIL # 3.2 TH/MM3 (1.8-7.7); BASOPHIL # 0.1 TH/MM3 (0-0.2); BASOPHIL % 1.3 % (0.0-2.0); EOSINOPHIL # 0.5 TH/MM3 (0-0.4); HEMATOCRIT 29.3 % (35.0-46.0); HEMOGLOBIN 9.8 GM/DL (11.6-15.3); LYMPH % 19.5 % (9.0-44.0); MEAN CELL VOLUME 95.8 FL (80.0-100.0); MEAN CORPUSCULAR HEMOGLOBIN 31.9 PG (27.0-34.0); MEAN CORPUSCULAR HGB CONC 33.3 % (32.0-36.0); MONO % 9.3 % (0.0-8.0); MONOCYTE # 0.5 TH/MM3 (0-0.9); NEUT % 60.9 % (16.0-70.0); PLATELET COUNT 121 TH/MM3 (150-450); RED BLOOD COUNT 3.06 MIL/MM3 (4.00-5.30); RED CELL DISTRIBUTION WIDTH 13.6 % (11.6-17.2); WHITE BLOOD COUNT 5.2 TH/MM3 (4.0-11.0)
[2017-07-31 07:52] LABS: ALBUMIN 2.8 GM/DL (3.4-5.0); BICARBONATE 22.3 MEQ/L (21.0-32.0); CALCIUM 6.8 MG/DL (8.5-10.1); CREATININE 1.39 MG/DL (0.50-1.00); PHOSPHORUS 3.2 MG/DL (2.5-4.9)
[2017-07-31] MEDS: CHOLECALCIFEROL (VIT D3) 5000 UNIT CAP PO SCH (08:34)
[2017-07-31] MEDS: TOLTERODINE TARTRATE 2 MG CAP LA PO SCH (08:34)
[2017-07-31] MEDS: THIAMINE HCL 100 MG TAB PO SCH (08:35)
[2017-07-31] MEDS: DULoxetine HCl DR 60 MG CAP PO SCH (08:35)
[2017-07-31] MEDS: MEMANTINE HCL 10 MG TAB PO SCH ×2 (08:35→20:22)
[2017-07-31] MEDS: ASPIRIN EC 81 MG TABEC PO SCH (08:35)
[2017-07-31] MEDS: CALCIUM/VITAMIN D 250 MG/125 U TAB PO SCH ×2 (08:35→20:22)
[2017-07-31] MEDS: PANTOPRAZOLE SOD 40 MG DELAYED RELEASE TAB PO SCH (08:36)
[2017-07-31] MEDS: DOCUSATE SODIUM 50 MG/SENNA 8.6 MG TAB PO SCH ×2 (08:36→20:22)
[2017-07-31] MEDS: PRAVASTATIN SOD 40 MG TAB PO SCH (08:36)
[2017-07-31] MEDS: ENALAPRILAT 1.25 MG/ML VIAL IV PUSH PRN (12:37)
--- NOTE | 2017-07-31 19:43 | HHI.PR ---
Subjective Remarks Says she is feeling well. Denies any chest pain shortness of breath. Denies any lightheadedness or dizziness. Objective Vital Signs Date Time Temp Pulse Resp B/P (MAP) Pulse Ox O2 Delivery O2 Flow Rate FiO2 07/31/17 15:24 98.6 74 16 198/100 (132) 96 195/106 (135) Manual Cuff/Auscultation 07/31/17 12:17 206/98 (134) 07/31/17 12:03 98.0 78 20 191/110 (137) 97 07/31/17 06:54 97.6 72 18 166/84 (111) 96 07/31/17 05:39 99.3 71 16 167/83 (111) 95 07/31/17 00:40 176/88 (117) 07/30/17 23:47 98.8 75 18 182/104 (130) 98 07/30/17 21:16 190/92 (124) 07/30/17 21:02 99.3 75 18 198/98 (131) 97 I/O 07/30/17 07/30/17 07/30/17 07/31/17 07/31/17 07/31/17 07:00 15:00 23:00 07:00 15:00 23:00 Intake Total 1514 ml Output Total 600 ml 500 ml Balance -600 ml 1014 ml Intake IV Total 1514 ml Output Urine Total 600 ml 500 ml # Bowel Movements 1 2 Result Diagram: 07/31/17 0655 07/31/17 0655 Objective Remarks GENERAL: Patient sitting up in bed. Appears comfortable. Awake, alert. Oriented 3 no change on exam SKIN: Warm and dry. HEAD: Normocephalic. EYES: No scleral icterus. No injection or drainage. NECK: Supple, trachea midline. No JVD or lymphadenopathy. CARDIOVASCULAR: Regular rate and rhythm without murmurs, gallops, or rubs. RESPIRATORY: Breath sounds equal bilaterally. No accessory muscle use. GASTROINTESTINAL: Abdomen soft, non-tender, nondistended. MUSCULOSKELETAL: No cyanosis, or edema. BACK: Nontender without obvious deformity. No CVA tenderness. A/P Assessment and Plan // Encephalopathy: Likely multifactorial-UTI/Dehydration/CVA/Dementia. CT Head w/ subacute CVA, no acute findings. continue w Neuro Cheks. hold Sinemet/ Namenda per neuro recs. = Appears somnolent but oriented to place, month. = B12 pending. Thiamine started. = Much improved. B12 within normal limits. Continue thiamine. //Dehydration. Continue IV fluids. = Consult dietitian for calorie count = Continue calorie count. Continue IV fluids //Hypernatremia. Sodium 147. Start one half normal saline overnight. Recheck tomorrow. //Hypovitaminosis D. Continue vitamin D. Recheck in 2 months. //Hypokalemia. Continue p.o. replacement. //Hypomagnesemia. Magnesium 1.0. Continue replacement. //Accelerated hypertension. Add nifedipine. // CVA: CT Head w/ likely subacute CVA right temporal and right parietal lobes. on ASA and Statin. PT for eval/tx. Speech Consult for Swallow Eval. Neurology evaluated the pt and ordered MRI = 07/29. MRI with subacute infarct temporal lobe. Appreciate neurology assistance. Continue to monitor. Ultrasound carotids ordered with no significant stenosis, echocardiogram ordered and pending. = 07/31. Echocardiogram unremarkable.. Aspirin // UTI: U/a w/ UTI, follow up urine cultures, on IV Cipro, IVF. thus far, urine and blood cx neg to date = No growth on UA. Discontinue Cipro //Renal Insufficiency: -Secondary to dehydration acute on Chronic. Creatinine 1.62-->1.53, previously 1.40 on 04/15/2017. IVF for hydration, repeat labs in a.m. = Creatinine improving 1.5. Continue to monitor. = Recheck labs tomorrow //n/v: on zofran prn added reglan IV = Resolved. Continue to monitor. //DVT Prophylaxis: SCDs/teds. Discharge Planning Follow-up neurology recommendations Continue on IV fluids for dehydration. Await calorie count Robin Cadet MD Jul 31, 2017 19:43
[2017-07-31] MEDS ORDERED: NIFEdipine 30 MG SUSTAINED RELEASE TAB PO ONE (20:00)
[2017-07-31] MEDS: MAGNESIUM SULFATE 1 GM PREMIX 100 ML IV SCH ×2 (20:23→21:27)
[2017-07-31] MEDS ORDERED: CALCIUM GLUCONATE INJ 1 GM in DEXTROSE 5% IN WATER 100ML INJ 100 ML IV ONE ×2 (21:00)
[2017-08-01 02:19] VITALS: BP 137/71; PULSE 80; RESP 16; TEMP 98.3; O2SAT 94
[2017-08-01] MEDS: METOCLOPRAMIDE HCL 10 MG/2 ML VIAL IV PUSH SCH ×2 (05:27→14:32)
[2017-08-01 05:42] VITALS: BP 125/69; PULSE 81; RESP 16; TEMP 98.5; O2SAT 93
[2017-08-01 06:15] LABS: AUTOMATED NEUTROPHIL # 4.6 TH/MM3 (1.8-7.7); BASOPHIL # 0.1 TH/MM3 (0-0.2); BASOPHIL % 1.3 % (0.0-2.0); EOSINOPHIL # 0.5 TH/MM3 (0-0.4); EOSINOPHIL % 7.3 % (0.0-4.0); HEMATOCRIT 31.6 % (35.0-46.0); HEMOGLOBIN 10.7 GM/DL (11.6-15.3); LYMPH % 16.4 % (9.0-44.0); LYMPHOCYTE # 1.1 TH/MM3 (1.0-4.8); MEAN CELL VOLUME 94.9 FL (80.0-100.0); MEAN CORPUSCULAR HEMOGLOBIN 32.1 PG (27.0-34.0); MEAN CORPUSCULAR HGB CONC 33.8 % (32.0-36.0); MEAN PLATELET VOLUME 11.1 FL (7.0-11.0); MONO % 7.7 % (0.0-8.0); MONOCYTE # 0.5 TH/MM3 (0-0.9); NEUT % 67.3 % (16.0-70.0); PLATELET COUNT 131 TH/MM3 (150-450); RED BLOOD COUNT 3.34 MIL/MM3 (4.00-5.30); RED CELL DISTRIBUTION WIDTH 13.8 % (11.6-17.2); WHITE BLOOD COUNT 6.8 TH/MM3 (4.0-11.0)
[2017-08-01 06:54] LABS: ALBUMIN 3.1 GM/DL (3.4-5.0); CALCIUM 7.2 MG/DL (8.5-10.1); CREATININE 1.2 MG/DL (0.50-1.00); MAGNESIUM 1.5 MG/DL (1.5-2.5); PHOSPHORUS 2.7 MG/DL (2.5-4.9)
[2017-08-01 08:22] VITALS: BP 116/64; PULSE 86; RESP 16; TEMP 96.8; O2SAT 93
[2017-08-01] MEDS ORDERED: NIFEdipine 30 MG SUSTAINED RELEASE TAB PO SCH (09:00)
--- NOTE | 2017-08-01 09:57 | HHI.PR ---
Review/Management Daily Summary 08/01 she is feeling well and ready for rehab mri seen subacute right mca infarct carotid us and echo ok need lipid profile asa (she was not taking at home), statin and rehab continue namenda could also resume sinemet outpt follow up with her neurologist Subjective Subjective Comments No acute events reported No headache Active Medications Current Medications Medications (Trade) Dose Ordered Sig/José Antonio Route Start Time Stop Time Status Last Admin (NS Flush) 2 ml UNSCH PRN IV FLUSH 07/27/17 20:00 07/28/17 15:01 (NS Flush) 2 ml BID IV FLUSH 07/27/17 21:00 07/31/17 07:27 (Zofran Inj) 4 mg Q6H PRN IVP 07/27/17 20:00 07/28/17 10:17 (Tylenol) 650 mg Q6H PRN PO 07/27/17 20:00 ([place] 5-325 Mg) 1 tab Q4H PRN PO 07/27/17 20:00 07/27/17 21:33 (Morphine Inj) 2 mg Q3H PRN IV PUSH 07/27/17 20:00 (Norma-Colace) 1 tab BID PO 07/27/17 21:00 07/31/17 20:22 (Milk Of Magnesia Liq) 30 ml Q12H PRN PO 07/27/17 20:00 (Senokot) 17.2 mg Q12H PRN PO 07/27/17 20:00 (Dulcolax Supp) 10 mg DAILY PRN RECTAL 07/27/17 20:00 (Lactulose Liq) 30 ml DAILY PRN PO 07/27/17 20:00 (Ecotrin Ec) 81 mg DAILY PO 07/28/17 09:00 07/31/17 08:35 (Pravachol) 40 mg DAILY PO 07/28/17 09:00 07/31/17 08:36 (Sinemet 25-100 Mg) 1 tab Q8HR PO 07/27/17 22:00 Future Hold 07/27/17 23:20 (Cymbalta Dr) 60 mg DAILY PO 07/28/17 09:00 07/31/17 08:35 (Namenda) 10 mg BID PO 07/27/17 21:00 07/31/17 20:22 (Protonix) 40 mg DAILY PO 07/28/17 09:00 07/31/17 08:36 (Catapres) 0.1 mg Q6H PRN PO 07/27/17 23:15 07/31/17 00:59 (Reglan Inj) 10 mg Q8HR IV PUSH 07/28/17 14:30 08/01/17 05:27 (Vasotec Inj) 1.25 mg Q6H PRN IV PUSH 07/29/17 15:00 07/31/17 12:37 (Vitamin B1) 100 mg DAILY PO 07/30/17 09:00 07/31/17 08:35 (Vitamin D3) 5,000 units DAILY PO 07/31/17 09:00 07/31/17 08:34 (Oscal-D 250-125) 250 mg Q12HR PO 07/30/17 21:00 07/31/17 20:22 (Procardia Xl) 30 mg DAILY PO 08/01/17 09:00 (Mag-Ox) 400 mg Q24H PO 08/01/17 12:00 Allergies Allergies Coded Allergies penicillin G (Verified Allergy, Severe, RASH, 07/27/17) milk (Verified Allergy, Mild, G I DISTRESS, 07/27/17) Sulfa (Sulfonamide Antibiotics) (Verified Adverse Reaction, Severe, GI DISTRESS, 07/27/17) erythromycin base (Verified Adverse Reaction, Severe, GI DISTRESS, 07/27/17) Exam I&O / VS 08/01/17 08/01/17 08/02/17 15:00 23:00 07:00 # Voids 1 Vital Signs Date Time Temp Pulse Resp B/P (MAP) Pulse Ox O2 Delivery O2 Flow Rate FiO2 08/01/17 08:22 96.8 86 16 116/64 (81) 93 08/01/17 05:42 98.5 81 16 125/69 (87) 93 08/01/17 02:19 98.3 80 16 137/71 (93) 94 07/31/17 19:41 98.9 78 16 163/89 (113) 96 07/31/17 15:24 98.6 74 16 198/100 (132) 96 195/106 (135) Manual Cuff/Auscultation 07/31/17 12:17 206/98 (134) 07/31/17 12:03 98.0 78 20 191/110 (137) 97 Respiratory: Lungs CTA, Non-labored respirations, Symmetrical expansion Cardiology: Normal rate, Normal peripheral perfusion, Regular Rhythm Musculoskeletal: ROM, Tenderness, Swelling Objective Micro and Labs Laboratory Tests Test 08/01/17 05:22 White Blood Count 6.8 Red Blood Count 3.34 Hemoglobin 10.7 Hematocrit 31.6 Mean Corpuscular Volume 94.9 Mean Corpuscular Hemoglobin 32.1 Mean Corpuscular Hemoglobin Concent 33.8 Red Cell Distribution Width 13.8 Platelet Count 131 Mean Platelet Volume 11.1 Neutrophils (%) (Auto) 67.3 Lymphocytes (%) (Auto) 16.4 Monocytes (%) (Auto) 7.7 Eosinophils (%) (Auto) 7.3 Basophils (%) (Auto) 1.3 Neutrophils # (Auto) 4.6 Lymphocytes # (Auto) 1.1 Monocytes # (Auto) 0.5 Eosinophils # (Auto) 0.5 Basophils # (Auto) 0.1 CBC Comment DIFF FINAL Differential Comment Blood Urea Nitrogen 10 Creatinine 1.20 Random Glucose 94 Albumin 3.1 Calcium Level 7.2 Phosphorus Level 2.7 Magnesium Level 1.5 Sodium Level 145 Potassium Level 3.4 Chloride Level 112 Carbon Dioxide Level 24.0 Anion Gap 9 Estimat Glomerular Filtration Rate 43 Date/Time Source Procedure Growth Status 07/27/17 18:20 Blood Peripheral Aerobic Blood Culture - Preliminary NO GROWTH IN 4 DAYS Resulted 07/27/17 18:20 Blood Peripheral Anaerobic Blood Culture - Preliminary NO GROWTH IN 4 DAYS Resulted 07/27/17 18:30 Urine Catheterized Urine Urine Culture - Final NO GROWTH IN 48 HOURS. Complete Jimmie Salazar MD Aug 01, 2017 09:57
--- NOTE | 2017-08-01 10:14 | HHI.PR ---
Subjective Remarks She says she is feeling well. Denies any chest pain or shortness of breath. Denies any nausea or vomiting. Discussed with nursing, who reports that patient is eating well. Objective Vital Signs Date Time Temp Pulse Resp B/P (MAP) Pulse Ox O2 Delivery O2 Flow Rate FiO2 08/01/17 08:22 96.8 86 16 116/64 (81) 93 08/01/17 05:42 98.5 81 16 125/69 (87) 93 08/01/17 02:19 98.3 80 16 137/71 (93) 94 07/31/17 19:41 98.9 78 16 163/89 (113) 96 07/31/17 15:24 98.6 74 16 198/100 (132) 96 195/106 (135) Manual Cuff/Auscultation 07/31/17 12:17 206/98 (134) 07/31/17 12:03 98.0 78 20 191/110 (137) 97 I/O 07/31/17 07/31/17 07/31/17 08/01/17 08/01/17 08/01/17 07:00 15:00 23:00 07:00 15:00 23:00 Intake Total 200 ml 110 ml Balance 200 ml 110 ml Intake IV Total 200 ml 110 ml # Voids 1 Result Diagram: 08/01/1752108/01/17521 Objective Remarks GENERAL: Patient sitting up in bed. Appears comfortable. Awake, alert. Oriented 3 . Again, no change on exam. SKIN: Warm and dry. HEAD: Normocephalic. EYES: No scleral icterus. No injection or drainage. NECK: Supple, trachea midline. No JVD or lymphadenopathy. CARDIOVASCULAR: Regular rate and rhythm without murmurs, gallops, or rubs. RESPIRATORY: Breath sounds equal bilaterally. No accessory muscle use. GASTROINTESTINAL: Abdomen soft, non-tender, nondistended. MUSCULOSKELETAL: No cyanosis, or edema. BACK: Nontender without obvious deformity. No CVA tenderness. A/P Assessment and Plan 08/01: Hypokalemia and hypomagnesemia mild, replaced again. Creatinine continues improving. Hyponatremia has resolved. Will start on daily magnesium replacement. // Encephalopathy: Likely multifactorial-UTI/Dehydration/CVA/Dementia. CT Head w/ subacute CVA, no acute findings. continue w Neuro Cheks. hold Sinemet/ Namenda per neuro recs. = Appears somnolent but oriented to place, month. = B12 pending. Thiamine started. = Much improved. B12 within normal limits. Continue thiamine. //Dehydration. Continue IV fluids. = Consult dietitian for calorie count = Continue calorie count. Continue IV fluids //Hypernatremia. Sodium 147. Start one half normal saline overnight. Recheck tomorrow. //Hypovitaminosis D. Continue vitamin D. Recheck in 2 months. //Hypokalemia. Continue p.o. replacement. //Hypomagnesemia. Magnesium 1.0. Continue replacement. = Proved after replacement. Start on daily replacement. //Accelerated hypertension. Improved after addition of nifedipine. // CVA: CT Head w/ likely subacute CVA right temporal and right parietal lobes. on ASA and Statin. PT for eval/tx. Speech Consult for Swallow Eval. Neurology evaluated the pt and ordered MRI = 07/29. MRI with subacute infarct temporal lobe. Appreciate neurology assistance. Continue to monitor. Ultrasound carotids ordered with no significant stenosis, echocardiogram ordered and pending. = 07/31. Echocardiogram unremarkable.. Aspirin // UTI: U/a w/ UTI, follow up urine cultures, on IV Cipro, IVF. thus far, urine and blood cx neg to date = No growth on UA. Discontinue Cipro //Renal Insufficiency: -Secondary to dehydration acute on Chronic. Creatinine 1.62-->1.53, previously 1.40 on 04/15/2017. IVF for hydration, repeat labs in a.m. = Creatinine improving 1.5. Continue to monitor. = Recheck labs tomorrow //n/v: on zofran prn added reglan IV = Resolved. Continue to monitor. //DVT Prophylaxis: SCDs/teds. Discharge Planning Check lipid profile. This is pending for discharge Continue on IV fluids for dehydration. Await calorie count Robin Cadet MD Aug 01, 2017 10:14
[2017-08-01] MEDS ORDERED: MAGNESIUM SULFATE 1 GM PREMIX 100 ML IV ONE (10:15)
[2017-08-01] MEDS ORDERED: POTASSIUM CHLORIDE 10 MEQ CONTROLLED RELEASE TAB PO ONE (10:15)
[2017-08-01] MEDS: DOCUSATE SODIUM 50 MG/SENNA 8.6 MG TAB PO SCH (10:15)
[2017-08-01] MEDS: PRAVASTATIN SOD 40 MG TAB PO SCH (10:16)
[2017-08-01] MEDS: CHOLECALCIFEROL (VIT D3) 5000 UNIT CAP PO SCH (10:16)
[2017-08-01] MEDS: MEMANTINE HCL 10 MG TAB PO SCH (10:16)
[2017-08-01] MEDS: THIAMINE HCL 100 MG TAB PO SCH (10:16)
[2017-08-01] MEDS: DULoxetine HCl DR 60 MG CAP PO SCH (10:16)
[2017-08-01] MEDS: ASPIRIN EC 81 MG TABEC PO SCH (10:16)
[2017-08-01] MEDS: CALCIUM/VITAMIN D 250 MG/125 U TAB PO SCH (10:16)
[2017-08-01] MEDS: PANTOPRAZOLE SOD 40 MG DELAYED RELEASE TAB PO SCH (10:19)
[2017-08-01] MEDS ORDERED: THIA100 PO (10:19)
[2017-08-01] MEDS ORDERED: CALC250 PO (10:19)
[2017-08-01] MEDS: SODIUM CHLORIDE 0.9% FLUSH 10 ML FLUSH IV FLUSH SCH (10:20)
[2017-08-01] MEDS ORDERED: PRAV40TA PO (10:29)
[2017-08-01] MEDS ORDERED: MAGN400T2 PO (10:29)
[2017-08-01] MEDS ORDERED: ECASA81 PO (10:29)
[2017-08-01] MEDS ORDERED: NIFE30TA8 PO (10:29)
[2017-08-01 10:53] LABS: CHOLESTEROL/ HDL RATIO 2.94 RATIO; HDL CHOLESTEROL 45.9 MG/DL (40.0-60.0)
[2017-08-01] MEDS ORDERED: MAGNESIUM OXIDE 400 MG TAB PO SCH (12:00)
[2017-08-01 13:20] VITALS: BP 125/67; PULSE 79; RESP 16; TEMP 98.7; O2SAT 96
[2017-08-01 16:27] VITALS: BP 119/64; PULSE 75; RESP 16; TEMP 98.6; O2SAT 95
[2017-08-01] MEDS ORDERED: CHOL5000 PO (17:26)
[2017-08-02] MEDS ORDERED: MAGNESIUM OXIDE 400 MG TAB PO SCH (09:00)
== END 2017-08-01 18:30 | DRG 64 ==
LOC: NEPC 15:40 → NEDA 20:35 → INTOOBSV 20:35 → NEPFCDU 21:54 → OBSVTOIN 07-29 14:46
PROVIDERS: ADMIT Internal Medicine; ATTEND Internal Medicine
DX: I63.9 Cerebral infarction, unspecified (principal); G93.40 Encephalopathy, unspecified; E87.0 Hyperosmolality and hypernatremia; R64 Cachexia; Z68.1 Body mass index [BMI] 19.9 or less, adult; G20 Parkinson's disease; I12.9 Hypertensive chronic kidney disease with stage 1 through stage 4 chronic kidney disease, or unspecified chronic kidney disease; F32.9 Major depressive disorder, single episode, unspecified; E87.6 Hypokalemia; M19.90 Unspecified osteoarthritis, unspecified site; K21.9 Gastro-esophageal reflux disease without esophagitis; E78.5 Hyperlipidemia, unspecified; N18.9 Chronic kidney disease, unspecified; L40.9 Psoriasis, unspecified; E86.0 Dehydration; E55.9 Vitamin D deficiency, unspecified; T45.1X5A Adverse effect of antineoplastic and immunosuppressive drugs, initial encounter; R11.2 Nausea with vomiting, unspecified; D3A.090 Benign carcinoid tumor of the bronchus and lung; F02.80 Dementia in other diseases classified elsewhere, unspecified severity, without behavioral disturbance, psychotic disturbance, mood disturbance, and anxiety; F41.9 Anxiety disorder, unspecified; Z87.891 Personal history of nicotine dependence; Z88.0 Allergy status to penicillin; Z88.1 Allergy status to other antibiotic agents; Z88.2 Allergy status to sulfonamides; Z91.011 Allergy to milk products; Z96.643 Presence of artificial hip joint, bilateral
CPT/HCPCS: 70450; 70551; 71045; 72125; 80053; 80061; 80069; 80307; 81001; 82140; 82306; 82550; 82552; 82607; 83605; 83735; 83970; 84443; 84484; 85025; 85610; 85730; 87040; 87086; 93005; 93306; 93880; 96361; 96365; 96366; 96375; 96376; G0378; G8987-GP; G8988-GP; J0610; J0744; J2060; J2405; J2765; J3475; J3480; J7030

== ENCOUNTER 2017-10-10 11:51 | Inpatient (IN) | payer MEDICARE, OTHER ==
[2017-10-10] VITALS (11 sets, daily range): BP systolic 168–198; BP diastolic 88–105; PULSE 76–89; RESP 14–18; TEMP 97.9–98.8; O2SAT 94–98
[~2017-10-10] VITALS: Ht 170.2 cm; Wt 49.8 kg
[~2017-10-10 11:51] MED LIST changes: +CALC250 PO; +CHOL5000 PO; -DETR2CAP PO; +DOCU100C15 PO; +DULO1CAP3 PO; +ECASA81 PO; +MAGN400T2 PO; +NIFE30TA8 PO; +PRAV40TA PO; +THIA100 PO
--- NOTE | 2017-10-10 12:34 | RADRPT ---
EXAM DATE: 10/10/2017 12:25 PM EDT AGE/SEX: 77 years / Female INDICATIONS: Fever CLINICAL DATA: This is the patient's initial encounter. Patient reports that signs and symptoms have been present for 1 day and indicates a pain score of Nonresponsive. MEDICAL/SURGICAL HISTORY: . Dementia. Parkinson's. Hypercholesterolemia. CVA. Carcinoma, lung. HTN. Dyspnea. GERD. Irritable bowel. Arthritis. Osteoarthritis. Hay fever. Tobacco use. Depression. Anxiety. . Tonsillectomy. Tubal ligation. Hysterectomy. Right lobectomy. section. Bilater al hip replace ments. Chemotherapy. Blood transfusions. COMPARISON: [facility] – [place], CHEST SINGLE AP, 07/27/2017. . FINDINGS: Portable AP view of the chest demonstrates a normal-sized cardiac silhouette with calcification of th e aorta. EKG lines overlie the patient no effusion, consolidation, or pneumothorax is identified. The bones and soft tissues demonstrate no acute finding. CONCLUSION: No acute cardiopulmonary abnormality is identified. Electronically signed by: Jordi Ordaz MD 10/10/2017 12:33 PM EDT
[2017-10-10] MEDS ORDERED: METOCLOPRAMIDE HCL 10 MG/2 ML VIAL IV PUSH ONE (12:45)
[2017-10-10 12:50] LABS: AUTOMATED NEUTROPHIL # 3.5 TH/MM3 (1.8-7.7); BASOPHIL # 0.1 TH/MM3 (0-0.2); BASOPHIL % 1.4 % (0.0-2.0); EOSINOPHIL # 0.4 TH/MM3 (0-0.4); EOSINOPHIL % 8.1 % (0.0-4.0); HEMATOCRIT 32.8 % (35.0-46.0); HEMOGLOBIN 10.8 GM/DL (11.6-15.3); LYMPH % 16.4 % (9.0-44.0); LYMPHOCYTE # 0.9 TH/MM3 (1.0-4.8); MEAN CELL VOLUME 95.7 FL (80.0-100.0); MEAN CORPUSCULAR HEMOGLOBIN 31.5 PG (27.0-34.0); MEAN CORPUSCULAR HGB CONC 32.9 % (32.0-36.0); MEAN PLATELET VOLUME 10.8 FL (7.0-11.0); MONO % 7.4 % (0.0-8.0); MONOCYTE # 0.4 TH/MM3 (0-0.9); NEUT % 66.7 % (16.0-70.0); PLATELET COUNT 123 TH/MM3 (150-450); RED BLOOD COUNT 3.43 MIL/MM3 (4.00-5.30); WHITE BLOOD COUNT 5.2 TH/MM3 (4.0-11.0)
[2017-10-10 13:00] LABS: INTERNATIONAL NORMALIZED RATIO 1.1 RATIO; PROTHROMBIN TIME - PATIENT 11.1 SEC (9.8-11.6)
[2017-10-10 13:10] LABS: BILIRUBIN, URINE NEG (NEG); BLOOD, URINE NEG (NEG); GLUCOSE,URINE NEG (NEG); KETONE, URINE NEG (NEG); MUCUS URINE FEW /lpf (OCC); NITRITE,URINE NEG (NEG); URINE COLOR YELLOW (YELLW/STRAW); URINE LEUKOCYTE ESTERASE NEG (NEG)
[2017-10-10 13:13] LABS: ALBUMIN 3.3 GM/DL (3.4-5.0); AST (GOT) 13 U/L (15-37); BICARBONATE 19.5 MEQ/L (21.0-32.0); BLOOD UREA NITROGEN 21 MG/DL (7-18); CALCIUM 7.8 MG/DL (8.5-10.1); CHLORIDE 112 MEQ/L (98-107); CREATININE 1.48 MG/DL (0.50-1.00); GLOMERULAR FILTRATION RATE 34 ML/MIN (>89); GLUCOSE,RANDOM 94 MG/DL (74-106); MAGNESIUM 1.3 MG/DL (1.5-2.5); SODIUM (NA) 143 MEQ/L (136-145)
[2017-10-10 13:14] LABS: ALT (GPT) 10 U/L (10-53)
[2017-10-10 13:24] LABS: ALKALINE PHOSPHATASE 68 U/L (45-117); TOTAL BILIRUBIN ADULT 0.5 MG/DL (0.2-1.0); TROPONIN I LESS THAN 0.02 NG/ML (0.02-0.05)
--- NOTE | 2017-10-10 13:24 | PD ---
HPI Chief Complaint: General Weakness Time Seen by Provider: 12:09 Travel History International Travel<30 days: No Contact w/Intl Traveler<30days: No Traveled to known affect area: No History of Present Illness HPI 77-year-old female that presents to the ED for evaluation of nausea, vomiting, weakness and pain in the right hip. Patient is a poor historian and she has a history of dementia. She does have a history of Parkinson's disease. History is very limited but she does complain of nausea and feeling weak for some time. She has had some basic questions yes or no. No family at bedside during my evaluation. She was brought here by [facility]. No chest pain or shortness of breath. Denies any diarrhea. No bowel movement issues. No urinary issues. She only complains of some right hip pain that is 7 out of 10 but she cannot really tell me how long she has had it. She does have a history of CVA and was admitted here a couple months ago for altered mental status and CVA. Most of the history is obtained from ED nurse report. Allergies to different medications. Unclear if patient has been taking any medications. PFSH Past Medical History Arthritis: Yes Asthma: No Autoimmune Disease: No Blood Disorders: No Anxiety: Yes Depression: Yes Heart Rhythm Problems: No Cancer: Yes (lung) Cardiovascular Problems: Yes High Cholesterol: Yes Chemotherapy: Yes Chest Pain: No Congestive Heart Failure: No COPD: No Cerebrovascular Accident: No Diabetes: No Diminished Hearing: No Endocrine: No GERD: Yes Glaucoma: No Genitourinary: Yes Hepatitis: No Hiatal Hernia: No Hypertension: Yes Immune Disorder: No Implanted Vascular Access Dvce: Yes Kidney Stones: No Medical other: Yes (PARKINSONS, PSORIASIS) Musculoskeletal: Yes Neurologic: Yes Psychiatric: No Reproductive: No Respiratory: No Migraines: No Radiation Therapy: No Renal Failure: No Seizures: No Sickle Cell Disease: No Sleep Apnea: No Thyroid Disease: No Ulcer: No Tetanus Vaccination: Unknown : 2 Para: 2 Tubal Ligation: Yes Past Surgical History Abdominal Surgery: No AICD: No Arteriovenous Shunt: No Body Medical Devices: LENS Cardiac Surgery: No Section: Yes (X 1) Ear Surgery: No Endocrine Surgery: No Eye Surgery: No Genitourinary Surgery: No Gynecologic Surgery: Yes Hysterectomy: Yes Insulin Pump: No Joint Replacement: Yes (CAROLYN HIPS REPLACED) Neurologic Surgery: Yes Oral Surgery: No Pacemaker: No Thoracic Surgery: No Tonsillectomy: Yes Other Surgery: Yes (RIGHT LOBECTOMY) Social History Alcohol Use: No Tobacco Use: No (quit 50 years ago) Substance Use: No Allergies-Medications (Allergen,Severity, Reaction): Coded Allergies: penicillin G (Verified Allergy, Severe, RASH, 10/10/17) INTERMEDIATE REACTION milk (Verified Allergy, Mild, G I DISTRESS, 10/10/17) Sulfa (Sulfonamide Antibiotics) (Verified Adverse Reaction, Severe, GI DISTRESS, 10/10/17) INTERMEDIATE REACTION erythromycin base (Verified Adverse Reaction, Severe, GI DISTRESS, 10/10/17) INTERMEDIATE REACTION Reported Meds & Prescriptions Reported Meds & Active Scripts Active Vitamin D3 (Cholecalciferol) 5,000 Unit Cap 5,000 Units PO DAILY 30 Days Magnesium Oxide 400 Mg Tab 400 Mg PO DAILY [address] (Aspirin) 81 Mg Tabdr 81 Mg PO DAILY 30 Days Nifedipine ER 24 HR (Nifedipine) 30 Mg Tab 30 Mg PO DAILY 30 Days Pravachol (Pravastatin) 40 Mg Tab 40 Mg PO DAILY 30 Days Gnp Vitamin B-1 (Thiamine HCl) 100 Mg Tab 100 Mg PO DAILY 30 Days Oyster Shell 250 mg + Vit D Tb (Calcium/Vitamin D) 250 Mg Calcium (625 Mg)-125 Unit Tablet 250 Mg PO Q12HR 30 Days Carbidopa-Levodopa 25-100 Mg Tab 1 Tab PO Q8HR Reported Zofran (Ondansetron HCl) 4 Mg Tab 4 Mg PO Q6HR PRN [place] (Hydrocodone-Acetaminophen) 5 Mg-325 Mg Tab 1 Tab PO Q8HR PRN Ditropan (Oxybutynin Chloride) 5 Mg Tab 5 Mg PO Q12HR Memantine 10 Mg Tab 10 Mg PO DAILY Duloxetine DR (Duloxetine HCl) 60 Mg Capdr 60 Mg PO DAILY Docusate Sodium 100 Mg Cap 100 Mg PO HS Review of Systems ROS Limitations: Poor Historian Except as stated in HPI: all other systems reviewed are Neg Physical Exam Exam Limitations: Poor Historian Narrative GENERAL: SKIN: Warm and dry. HEAD: Atraumatic. Normocephalic. EYES: Pupils equal and round. No scleral icterus. No injection or drainage. ENT: No nasal bleeding or discharge. Mucous membranes pink and moist. Tongue is midline. No uvula deviation. NECK: Trachea midline. No JVD. CARDIOVASCULAR: Regular rate and rhythm. No murmurs, S3, S4. RESPIRATORY: No accessory muscle use. Clear to auscultation. Breath sounds equal bilaterally. GASTROINTESTINAL: Abdomen soft, non-tender, nondistended. Hepatic and splenic margins not palpable. MUSCULOSKELETAL: Extremities without clubbing, cyanosis, or edema. No obvious deformities. Full range of motion of the upper and lower extremities bilaterally. 2+ pulses bilaterally. Some pain noted in the right hip. NEUROLOGICAL: Awake and alert. No obvious cranial nerve deficits. Motor grossly within normal limits. Five out of 5 muscle strength in the arms and legs. Normal speech. PSYCHIATRIC: Appropriate mood and affect; insight and judgment normal. Data Data Last Documented VS Vital Signs Date Time Temp Pulse Resp B/P (MAP) Pulse Ox O2 Delivery O2 Flow Rate FiO2 10/10/17 13:44 80 16 186/99 (128) 98 Room Air 10/10/17 12:07 98.8 Orders Orders Electrocardiogram (10/10/17 12:13) Complete Blood Count With Diff (10/10/17 12:13) Comprehensive Metabolic Panel (10/10/17 12:13) Ckmb (Isoenzyme) Profile (10/10/17 12:13) Troponin I (10/10/17 12:13) Prothrombin Time / Inr (Pt) (10/10/17 12:13) Act Partial Throm Time (Ptt) (10/10/17 12:13) Blood Culture (10/10/17 12:13) Lipase (10/10/17 12:13) Urinalysis - C+S If Indicated (10/10/17 12:13) Cath For Specimen (10/10/17 12:13) Magnesium (Mg) (10/10/17 12:13) Thyroid Stimulating Hormone (10/10/17 12:13) Chest, Single Ap (10/10/17 12:13) Ct Brain W/O Iv Contrast(Rout) (10/10/17 12:13) Iv Access Insert/Monitor (10/10/17 12:13) Ecg Monitoring (10/10/17 12:13) Oximetry (10/10/17 12:13) Metoclopramide Inj (Reglan Inj) (10/10/17 12:45) Ct Abd/Pel W Iv Contrast(Rout) (10/10/17 ) Sodium Chlorid 0.9% 500 Ml Inj (Ns 500 M (10/10/17 13:30) Hip, Bilat(2vw)W Ap Pelvis (10/10/17 ) Iodixanol 320 Inj (Rad Ct) (Visipaque 32 (10/10/17 14:32) Labs Laboratory Tests Test 10/10/17 12:30 10/10/17 12:50 White Blood Count 5.2 TH/MM3 Red Blood Count 3.43 MIL/MM3 Hemoglobin 10.8 GM/DL Hematocrit 32.8 % Mean Corpuscular Volume 95.7 FL Mean Corpuscular Hemoglobin 31.5 PG Mean Corpuscular Hemoglobin Concent 32.9 % Red Cell Distribution Width 14.0 % Platelet Count 123 TH/MM3 Mean Platelet Volume 10.8 FL Neutrophils (%) (Auto) 66.7 % Lymphocytes (%) (Auto) 16.4 % Monocytes (%) (Auto) 7.4 % Eosinophils (%) (Auto) 8.1 % Basophils (%) (Auto) 1.4 % Neutrophils # (Auto) 3.5 TH/MM3 Lymphocytes # (Auto) 0.9 TH/MM3 Monocytes # (Auto) 0.4 TH/MM3 Eosinophils # (Auto) 0.4 TH/MM3 Basophils # (Auto) 0.1 TH/MM3 CBC Comment DIFF FINAL Differential Comment Prothrombin Time 11.1 SEC Prothromb Time International Ratio 1.1 RATIO Activated Partial Thromboplast Time 21.5 SEC Blood Urea Nitrogen 21 MG/DL Creatinine 1.48 MG/DL Random Glucose 94 MG/DL Total Protein 6.0 GM/DL Albumin 3.3 GM/DL Calcium Level 7.8 MG/DL Magnesium Level 1.3 MG/DL Alkaline Phosphatase 68 U/L Aspartate Amino Transf (AST/SGOT) 13 U/L Alanine Aminotransferase (ALT/SGPT) 10 U/L Total Bilirubin 0.5 MG/DL Sodium Level 143 MEQ/L Potassium Level 4.2 MEQ/L Chloride Level 112 MEQ/L Carbon Dioxide Level 19.5 MEQ/L Anion Gap 12 MEQ/L Estimat Glomerular Filtration Rate 34 ML/MIN Total Creatine Kinase 20 U/L Troponin I LESS THAN 0.02 NG/ML Lipase 180 U/L Thyroid Stimulating Hormone 3rd Gen 1.810 uIU/ML Urine Color YELLOW Urine Turbidity CLEAR Urine pH 5.0 Urine Specific [place] 1.020 Urine Protein NEG mg/dL Urine Glucose (UA) NEG mg/dL Urine Ketones NEG mg/dL Urine Occult Blood NEG Urine Nitrite NEG Urine Bilirubin NEG Urine Urobilinogen LESS THAN 2.0 MG/DL Urine Leukocyte Esterase NEG Urine Mucus FEW /lpf Microscopic Urinalysis Comment CULT NOT INDICATED MDM Medical Decision Making Medical Screen Exam Complete: Yes Emergency Medical Condition: Yes Medical Record Reviewed: Yes Interpretation(s) CBC & BMP Diagram 10/10/17 12:30 Total Protein 6.0 L, Albumin 3.3 L, Calcium Level 7.8 L, Magnesium Level 1.3 L, Alkaline Phosphatase 68, Aspartate Amino Transf (AST/SGOT) 13 L, Alanine Aminotransferase (ALT/SGPT) 10, Total Bilirubin 0.[address] 10/10/17 1213 Signed Impressions: CONCLUSION: 1. 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 2. Chronic small vessel ischemic change. 3. No acute intracranial abnormality. Chest X-Ray 10/10/17 1213 Signed Impressions: CONCLUSION: No acute cardiopulmonary abnormality is identified. Hip and Pelvis X-Ray 10/10/17 0000 Signed Impressions: CONCLUSION: Intact total hip arthroplasty bilaterally. Abdomen/Pelvis CT 10/10/17 0000 Signed Impressions: CONCLUSION: Nonobstructing renal stones and cholelithiasis. UA negative troponin and CKMB negative Differential Diagnosis Weakness versus chronic pain versus CVA versus encephalopathy versus UTI versus now she will versus abdominal pain versus electrolyte abnormality Narrative Course 77-year-old female that presents to the ED for evaluation of weakness, nausea. Patient was properly examined and was found to have signs and symptoms of unclear etiology. I did review her medical records and she does have a history of Parkinson's as well as dementia and a CVA recently. Patient herself is a poor historian but does answer some questions appropriately. No family at bedside to give any history on initial evaluation. Labs and imaging were ordered. Patient was given IV fluids as well as IV antiemetics. Labs and imaging showed some the hydration otherwise unremarkable exam. Chronic findings. Case was discussed with my attending Dr. Arredondo who evaluated the patient himself and recommends admission for further evaluation of altered mental status and nausea and vomiting and dehydration. This was discussed with the family and patient who agree with admission. Case discussed with Dr. Adhikari who agrees to admission. Diagnosis Primary Impression: Altered mental status Qualified Codes: R41.82 - Altered mental status, unspecified Additional Impressions: RITA (acute kidney injury) Nausea & vomiting Qualified Codes: R11.2 - Nausea with vomiting, unspecified Admitting Information Admitting Physician Requests: Observation Brent Weathers Oct 10, 2017 13:24
[2017-10-10] MEDS ORDERED: SODIUM CHLORID 0.9% 500 ML INJ 500 ML IV ONE (13:30)
[2017-10-10] MEDS ORDERED: NORC5TAB PO (14:09)
[2017-10-10] MEDS ORDERED: ZOFR4TAB PO (14:09)
[2017-10-10] MEDS ORDERED: OXYB5TAB8 PO (14:09)
[2017-10-10] MEDS ORDERED: MEMA1TAB2 PO (14:09)
--- NOTE | 2017-10-10 14:14 | RADRPT ---
EXAM DATE: 10/10/2017 2:03 PM EDT AGE/SEX: 77 years / Female INDICATIONS: Evaluate hips for trauma CLINICAL DATA: This is the patient's initial encounter. Patient reports that signs and symptoms have been present for 1 day and indicates a pain score of Nonresponsive. MEDICAL/SURGICAL HISTORY: Non-responsive. Non-responsive. COMPARISON: No prior exams available for comparison. FINDINGS: Total hip arthroplasty is seen bilaterally and appear intact without any abnormal blood fl ow, blood pool or delayed uptake. No definite fracture is identified for technique. CONCLUSION: Intact total hip arthroplasty bilaterally. Electronically signed by: Elmer Riggs MD 10/10/2017 2:13 PM EDT
[2017-10-10] MEDS ORDERED: IODIXANOL 320 MG/ML 10 ML VIAL (for Rad CT) IVCONTRAST ONE (14:32)
--- NOTE | 2017-10-10 14:33 | RADRPT ---
EXAM DATE: 10/10/2017 2:24 PM EDT AGE/SEX: 77 years / Female INDICATIONS: Altered mental status. CLINICAL DATA: This is the patient's initial encounter. Patient reports that signs and symptoms have been present for 1 day and indicates a pain score of 0/10. MEDICAL/SURGICAL HISTORY: Hypertension. Carcinoma, lung. Total knee replacement, right. Hysterect radha. RADIATION DOSE: 56.35 CTDI (mGy) COMPARISON: [facility] [place], MRI BRAIN W/O CONTRAST, 07/28/[address] brain 07/27/2017. . TECHNIQUE: CT of the head without contrast. Using automated exposure control and adjustment of the mA and/or kV according to patient size, radiation dose was kept as low as reasonably achievable to ob tain optimal diagnostic quality images. FINDINGS: Cerebrum: Area of prior infarction involving the right temporoparietal lobe. This is stable from the prior study. Periventricular low attenuation change involving both cerebral hemispheres. This is sta ble. The ventricles are normal for age. No evidence of midline shift, mass lesion, hemorrhage or acu te infarction. No extraaxial fluid collections are seen. Posterior Fossa: The cerebellum and brainstem are intact. The 4th ventricle is midline. The cerebe llopontine angle is unremarkable. Extracranial: The visualized portion of the orbits is intact. Skull: The calvaria is intact. No evidence of skull fracture. CONCLUSION: 1. Stable nonhemorrhagic infarction involving the right temporal parietal lobe. 2. Chronic small vessel ischemic change. 3. No acute intracranial abnormality. Electronically signed by: Kike Farley MD 10/10/2017 2:32 PM EDT
--- NOTE | 2017-10-10 14:51 | RADRPT ---
EXAM DATE: 10/10/2017 2:30 PM EDT AGE/SEX: 77 years / Female INDICATIONS: Generalized weakness. Nausea and vomiting x 4 days. CLINICAL DATA: This is the patient's initial encounter. Patient reports that signs and symptoms have been present for 1 day and indicates a pain score of 4/10. MEDICAL/SURGICAL HISTORY: Hypertension. Carcinoma, lung. Tubal ligation. Hysterectomy. ORAL CONTRAST: No oral contrast ingested. RADIATION DOSE: 7.04 CTDI (mGy) COMPARISON: No prior exams available for comparison. TECHNIQUE: Multiple contiguous axial images were obtained through the abdomen and pelvis following b olus infusion of 50 ml Visipaque 320 (iodixanol) nonionic water-soluble contrast as a single exam d ose. No oral contrast ingested. Using automated exposure control and adjustment of the mA and/or kV according to patient size, the radiation dose was kept as low as reasonably achievable to obtain opti mal diagnostic quality images. FINDINGS: Abdomen CT: The liver, spleen, pancreas, adrenals are unremarkable. There is no evidence for any appreciable pat hological adenopathy, free fluid, or bowel obstruction. Gallstones are present within the gallbladder without signs of cholecystitis for technique. There are multiple small stones in the right kidney t he largest measures 5 to 6 mm in size without hydronephrosis. There are simple cysts in both kidneys the largest on the right measures 4.[address] in [address]vic CT: There is no evidence for mass, abscess formation, or any significant adenopathy within the pelvis. Th ere is moderate amount of stool in the colon. CONCLUSION: Nonobstructing renal stones and cholelithiasis. Electronically signed by: Elmer Rigsg MD 10/10/2017 2:49 PM EDT
[2017-10-10] MEDS ORDERED: BISACODYL 10 MG SUPP RECTAL PRN (16:00)
[2017-10-10] MEDS ORDERED: NALOXONE HCL 0.4 MG/ML AMP IV PUSH PRN (16:00)
[2017-10-10] MEDS ORDERED: SENNOSIDES 8.6 MG TAB PO PRN (16:00)
[2017-10-10] MEDS ORDERED: MORPHINE SULFATE 4 MG/ML INJ IV PUSH PRN ×2 (16:00)
[2017-10-10] MEDS ORDERED: ONDANSETRON ODT 4 MG TAB PO PRN (16:00)
[2017-10-10] MEDS ORDERED: METOCLOPRAMIDE HCL 10 MG/2 ML VIAL IV PUSH PRN (16:00)
[2017-10-10] MEDS ORDERED: oxyCODONE/ACETAMINOPHEN 10 MG/325 MG TAB PO PRN (16:00)
[2017-10-10] MEDS ORDERED: oxyCODONE/ACETAMINOPHEN 5 MG/325 MG TAB PO PRN (16:00)
[2017-10-10] MEDS ORDERED: MAGNESIUM HYDROXIDE SUSP 30 ML CUP PO PRN (16:00)
[2017-10-10] MEDS ORDERED: LACTULOSE SYRUP 20 GM/30 ML CUP PO PRN (16:00)
[2017-10-10] MEDS ORDERED: SODIUM CHLORIDE 0.9% FLUSH 10 ML FLUSH IV FLUSH PRN (16:00)
[2017-10-10] MEDS ORDERED: ACETAMINOPHEN 325 MG TAB PO PRN ×2 (16:00)
--- NOTE | 2017-10-10 16:11 | HHI.HP ---
[facility]ician Desiree Styles MD Admission Diagnosis altered mental status, dehydration, vomit Diagnoses: (1) RITA (acute kidney injury) Diagnosis: Principal (2) Nausea & vomiting Diagnosis: Principal (3) Altered mental status Diagnosis: Principal (4) Encephalopathy Diagnosis: Principal (5) Renal insufficiency Diagnosis: Principal (6) CVA (cerebral vascular accident) Diagnosis: Secondary (7) Parkinsonism Diagnosis: Secondary (8) Malignant carcinoid syndrome Diagnosis: Secondary (9) Impaired mobility and activities of daily living Diagnosis: Principal (10) Swallowing difficulty Diagnosis: Principal (11) Vitamin D deficiency Diagnosis: Principal Chief Complaint: Generalized weakness Travel History International Travel<30 Days: No Contact w/Intl Traveler <30 Da: No Traveled to Known Affected Are: No History of Present Illness Patient is a 77-year-old female who presented to the emergency department earlier today with a persistent nausea and vomiting and weakness and some pain in her right hip. Patient is a very poor historian. Has history of dementia also has history of Parkinson's has history of carcinoid tumors. Has history of chronic diarrhea. Has advancing dementia. Not able to answer some questions well very limited history from her and some nausea and been feeling weak. [facility] Patient complains of some right hip pain. Has a history of recent CVA has history of anxiety and depression per chart review as well as arthritis and high cholesterol on lung cancer history of chemotherapy in the past also has a history of Parkinson's and psoriasis Patient will be admitted will consult physical therapy and occupational therapy and speech therapy. Patient will more than likely need chronic placements and she appears not able to take care of herself at all. Will more than likely need a correction facility. Review of Systems ROS Limitations: Altered Mental Status, Poor Historian Constitutional: COMPLAINS OF: Fatigue Gastrointestinal: COMPLAINS OF: Nausea, Vomiting Musculoskeletal: COMPLAINS OF: Joint pain, Muscle aches, Stiffness Neurologic: COMPLAINS OF: Abnormal gait, Localized weakness, Speech Problems, Poor Balance Psychiatric: COMPLAINS OF: Confusion Except as stated in HPI: all other systems reviewed are Neg Past Family Social History Past Medical History Memory loss dementia Chronic dizziness Chronic hypertension Chronic hyper cholesterolemia History of lung cancer with lobectomy Irritable bowel syndrome GERD Parkinson's disease Urinary incontinence Osteoarthritis Anxiety and depression History of chemotherapy in the past Psoriasis Past Surgical History Tonsillectomy Bilateral intraocular lens implant cataract extraction History of tubal ligation Hysterectomy section 1 History of bilateral hip replacements History of right lobectomy Reported Medications Reported Meds & Active Scripts Active Vitamin D3 (Cholecalciferol) 5,000 Unit Cap 5,000 Units PO DAILY 30 Days Magnesium Oxide 400 Mg Tab 400 Mg PO DAILY [address] (Aspirin) 81 Mg Tabdr 81 Mg PO DAILY 30 Days Nifedipine ER 24 HR (Nifedipine) 30 Mg Tab 30 Mg PO DAILY 30 Days Pravachol (Pravastatin) 40 Mg Tab 40 Mg PO DAILY 30 Days Gnp Vitamin B-1 (Thiamine HCl) 100 Mg Tab 100 Mg PO DAILY 30 Days Oyster Shell 250 mg + Vit D Tb (Calcium/Vitamin D) 250 Mg Calcium (625 Mg)-125 Unit Tablet 250 Mg PO Q12HR 30 Days Carbidopa-Levodopa 25-100 Mg Tab 1 Tab PO Q8HR Reported Zofran (Ondansetron HCl) 4 Mg Tab 4 Mg PO Q6HR PRN [place] (Hydrocodone-Acetaminophen) 5 Mg-325 Mg Tab 1 Tab PO Q8HR PRN Ditropan (Oxybutynin Chloride) 5 Mg Tab 5 Mg PO Q12HR Memantine 10 Mg Tab 10 Mg PO DAILY Duloxetine DR (Duloxetine HCl) 60 Mg Capdr 60 Mg PO DAILY Docusate Sodium 100 Mg Cap 100 Mg PO HS Allergies: Coded Allergies: penicillin G (Verified Allergy, Severe, RASH, 10/10/17) INTERMEDIATE REACTION milk (Verified Allergy, Mild, G I DISTRESS, 10/10/17) Sulfa (Sulfonamide Antibiotics) (Verified Adverse Reaction, Severe, GI DISTRESS, 10/10/17) INTERMEDIATE REACTION erythromycin base (Verified Adverse Reaction, Severe, GI DISTRESS, 10/10/17) INTERMEDIATE REACTION Active Ordered Medications Current Medications Metoclopramide HCl (Reglan Inj) 5 mg ONCE ONCE IV PUSH Last administered on 10/10/17at 13:43; Start 10/10/17 at 12:45; Stop 10/10/17 at 12:46; Status DC Sodium Chloride 500 ml @ 500 mls/hr BOLUS ONCE IV Last administered on at 13:43; Start 10/10/17 at 13:30; Stop 10/10/17 at 14:29; Status DC Iodixanol (VISIPAQUE 320 INJ (Rad CT)) 50 ml STK-MED ONCE IVCONTRAST Last administered on 10/10/17at 14:32; Start 10/10/17 at 14:32; Stop 10/10/17 at 14:33; Status DC Sodium Chloride 1,000 ml @ 100 mls/hr Q10H IV ; Start 10/10/17 at 15:47; Status UNV Sodium Chloride (NS Flush) 2 ml UNSCH PRN IV FLUSH FLUSH AFTER USING IV ACCESS ; Start 10/10/17 at 16:00; Status UNV Sodium Chloride (NS Flush) 2 ml BID IV FLUSH ; Start 10/10/17 at 21:00; Status UNV Acetaminophen (Tylenol) 650 mg Q4H PRN PO TEMP > 100.4; Start 10/10/17 at 16:00 ; Status UNV Ondansetron HCl (Zofran Inj) 4 mg Q6H PRN IVP NAUSEA OR VOMITING; Start at 16:00; Status UNV Metoclopramide HCl (Reglan Inj) 5 mg Q6H PRN IV PUSH NAUSEA OR VOMITING; Start 10/10/17 at 16:00; Status UNV Heparin Sodium (Porcine) (Heparin Inj) 5,000 units Q8H SQ ; Start 10/10/17 at 16: 00; Status UNV Acetaminophen (Tylenol) 650 mg Q6H PRN PO PAIN SCALE 1 TO 2; Start 10/10/17 at 16:00; Status UNV Oxycodone/ Acetaminophen (Percocet 5-325 Mg) 1 tab Q6H PRN PO PAIN SCALE 3 TO 5; Start 10/10/17 at 16:00; Status UNV Oxycodone/ Acetaminophen (Percocet 10-325 Mg) 1 tab Q6H PRN PO PAIN SCALE 6 TO 10; Start 10/10/17 at 16:00; Status UNV Morphine Sulfate (Morphine Inj) 2 mg Q3H PRN IV PUSH Pain 3-5; if unable to take PO; Start 10/10/17 at 16:00; Status UNV Morphine Sulfate (Morphine Inj) 4 mg Q3H PRN IV PUSH Pain 6-10;if unable to take PO; Start 10/10/17 at 16:00; Status UNV Naloxone HCl (Narcan Inj) 0.4 mg UNSCH PRN IV PUSH SEE LABEL COMMENTS; Start at 16:00; Status UNV Senna/Docusate Sodium (Norma-Colace) 1 tab BID PO ; Start 10/10/17 at 21:00; Status UNV Magnesium Hydroxide (Milk Of Magnesia Liq) 30 ml Q12H PRN PO Mild constipation ; Start 10/10/17 at 16:00; Status UNV Sennosides (Senokot) 17.2 mg Q12H PRN PO Moderate constipation; Start 10/10/17 at 16:00; Status UNV Bisacodyl (Dulcolax Supp) 10 mg DAILY PRN RECTAL SEVERE CONSITIPATION; Start at 16:00; Status UNV Lactulose (Lactulose Liq) 30 ml DAILY PRN PO SEVERE CONSITIPATION; Start at 16:00; Status UNV Aspirin (Ecotrin Ec) 81 mg DAILY PO ; Start 10/11/17 at 09:00; Status UNV Calcium/Vitamin D (Oscal-D 250-125) 250 mg Q12HR PO ; Start 10/10/17 at 21:00; Status UNV Carbidopa/Levodopa (Sinemet 25-100 Mg) 1 tab Q8HR PO ; Start 10/10/17 at 16:00; Status UNV Cholecalciferol (Vitamin D3) 5,000 units DAILY PO ; Start 10/11/17 at 09:00; Status UNV Docusate Sodium (Colace) 100 mg HS PO ; Start 10/10/17 at 21:00; Status UNV Duloxetine HCl (Cymbalta Dr) 60 mg DAILY PO ; Start 10/11/17 at 09:00; Status UNV Magnesium Oxide (Mag-Ox) 400 mg DAILY PO ; Start 10/11/17 at 09:00; Status UNV Memantine (Namenda) 10 mg DAILY PO ; Start 10/11/17 at 09:00; Status UNV Nifedipine (Procardia Xl) 30 mg DAILY PO ; Start 10/11/17 at 09:00; Status UNV Pravastatin Sodium (Pravachol) 40 mg DAILY PO ; Start 10/11/17 at 09:00; Status UNV Family History Peripheral vascular disease Kidney disease Hypertension Parkinson's disease History of carcinomas History of alcohol abuse Social History No tobacco or alcohol or illicit Physical Exam Vital Signs Vital Signs Date Time Temp Pulse Resp B/P (MAP) Pulse Ox O2 Delivery O2 Flow Rate FiO2 10/10/17 13:44 80 16 186/99 (128) 98 Room Air 10/10/17 12:28 18 95 Room Air 10/10/17 12:09 91 18 95 Room Air 10/10/17 12:07 98.8 79 18 168/88 (114) 95 Physical Exam GENERAL: This is a very thin cachectic patient who appears confused, in no apparent distress. SKIN: No rashes, ecchymoses or lesions. Cool and dry. HEAD: Atraumatic. Normocephalic. No temporal or scalp tenderness. EYES: Pupils equal round and reactive. Extraocular motions intact. No scleral icterus. No injection or drainage. Bilateral surgical pupils S1-S2 no S3 or S4 ENT: Nose without bleeding, purulent drainage or septal hematoma. Throat without erythema, tonsillar hypertrophy or exudate. Uvula midline. Airway patent. NECK: Trachea midline. No JVD or lymphadenopathy. Supple, nontender, no meningeal signs. CARDIOVASCULAR: Regular rate and rhythm without murmurs, gallops, or rubs. RESPIRATORY: Clear to auscultation. Breath sounds equal bilaterally. No wheezes , rales, or rhonchi. GASTROINTESTINAL: Abdomen soft, non-tender, nondistended. No hepato-splenomegaly , or palpable masses. No guarding. MUSCULOSKELETAL: Extremities without clubbing, cyanosis, or edema. No joint tenderness, effusion, or edema noted. No calf tenderness. Negative Homans sign bilaterally. NEUROLOGICAL: Awake and alert follows some commands but is not very verbal. Cranial nerves II through XII intact. Motor and sensory grossly within normal limits. 3 out of 5 muscle strength in all muscle groups. Currently remains nonverbal Insight and judgment is limited and not able to be tested Mood and behavior is not able to be obtained Laboratory Laboratory Tests Test 10/10/17 12:30 10/10/17 12:50 White Blood Count 5.2 Red Blood Count 3.43 Hemoglobin 10.8 Hematocrit 32.8 Mean Corpuscular Volume 95.7 Mean Corpuscular Hemoglobin 31.5 Mean Corpuscular Hemoglobin Concent 32.9 Red Cell Distribution Width 14.0 Platelet Count 123 Mean Platelet Volume 10.8 Neutrophils (%) (Auto) 66.7 Lymphocytes (%) (Auto) 16.4 Monocytes (%) (Auto) 7.4 Eosinophils (%) (Auto) 8.1 Basophils (%) (Auto) 1.4 Neutrophils # (Auto) 3.5 Lymphocytes # (Auto) 0.9 Monocytes # (Auto) 0.4 Eosinophils # (Auto) 0.4 Basophils # (Auto) 0.1 CBC Comment DIFF FINAL Differential Comment Prothrombin Time 11.1 Prothromb Time International Ratio 1.1 Activated Partial Thromboplast Time 21.5 Blood Urea Nitrogen 21 Creatinine 1.48 Random Glucose 94 Total Protein 6.0 Albumin 3.3 Calcium Level 7.8 Magnesium Level 1.3 Alkaline Phosphatase 68 Aspartate Amino Transf (AST/SGOT) 13 Alanine Aminotransferase (ALT/SGPT) 10 Total Bilirubin 0.5 Sodium Level 143 Potassium Level 4.2 Chloride Level 112 Carbon Dioxide Level 19.5 Anion Gap 12 Estimat Glomerular Filtration Rate 34 Total Creatine Kinase 20 Troponin I LESS THAN 0.02 Lipase 180 Thyroid Stimulating Hormone 3rd Gen 1.810 Urine Color YELLOW Urine Turbidity CLEAR Urine pH 5.0 Urine Specific [place] 1.020 Urine Protein NEG Urine Glucose (UA) NEG Urine Ketones NEG Urine Occult Blood NEG Urine Nitrite NEG Urine Bilirubin NEG Urine Urobilinogen LESS THAN 2.0 Urine Leukocyte Esterase NEG Urine Mucus FEW Microscopic Urinalysis Comment CULT NOT INDICATED Date/Time Source Procedure Growth Status 10/10/17 12:35 Blood Peripheral Aerobic Blood Culture Pending Received 10/10/17 12:35 Blood Peripheral Anaerobic Blood Culture Pending Received Result Diagram: 10/10/17 1230 10/10/17 1230 Imaging Last Impressions Head CT 10/10/17 1213 Signed Impressions: CONCLUSION: 1. 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 2. Chronic small vessel ischemic change. 3. No acute intracranial abnormality. Chest X-Ray 10/10/17 1213 Signed Impressions: CONCLUSION: No acute cardiopulmonary abnormality is identified. Hip and Pelvis X-Ray 10/10/17 0000 Signed Impressions: CONCLUSION: Intact total hip arthroplasty bilaterally. Abdomen/Pelvis CT 10/10/17 0000 Signed Impressions: CONCLUSION: Nonobstructing renal stones and cholelithiasis. Caprini VTE Risk Assessment Caprini VTE Risk Assessment: Mod/High Risk (score >= 2) Caprini Risk Assessment Model Point Value = 1 Point Value = 2 Point Value = 3 Point Value = 5 Age 41-60 Minor surgery BMI > 25 kg/m2 Swollen legs Varicose veins or History of unexplained or recurrent spontaneous Oral contraceptives or hormone replacement Sepsis (< 1 month) Serious lung disease, including pneumonia (< 1 month) Abnormal pulmonary function Acute myocardial infarction Congestive heart failure (< 1 month) History of inflammatory bowel disease Medical patient at bed rest Age 61-74 Arthroscopic surgery Major open surgery (> 45 min) Laparoscopic surgery (> 45 min) Malignancy Confined to bed (> 72 hours) Immobilizing plaster cast Central venous access Age >= 75 History of VTE Family history of VTE Factor V Leiden Prothrombin [id number] Lupus anticoagulant Anticardiolipin antibodies Elevated serum homocysteine Heparin-induced thrombocytopenia Other congenital or acquired thrombophilia Stroke (< 1 month) Elective arthroplasty Hip, pelvis, or leg fracture Acute spinal cord injury (< 1 month) Prophylaxis Regimen Total Risk Factor Score Risk Level Prophylaxis Regimen 0-1 Low Early ambulation 2 Moderate Order ONE of the following: *Sequential Compression Device (SCD) *Heparin 5000 units SQ BID 3-4 Higher Order ONE of the following medications: *Heparin 5000 units SQ TID *Enoxaparin/Lovenox 40 mg SQ daily (WT < 150 kg, CrCl > 30 mL/min) *Enoxaparin/Lovenox 30 mg SQ daily (WT < 150 kg, CrCl > 10-29 mL/min) *Enoxaparin/Lovenox 30 mg SQ BID (WT < 150 kg, CrCl > 30 mL/min) AND/OR *Sequential Compression Device (SCD) 5 or more Highest Order ONE of the following medications: *Heparin 5000 units SQ TID (Preferred with Epidurals) *Enoxaparin/Lovenox 40 mg SQ daily (WT < 150 kg, CrCl > 30 mL/min) *Enoxaparin/Lovenox 30 mg SQ daily (WT < 150 kg, CrCl > 10-29 mL/min) *Enoxaparin/Lovenox 30 mg SQ BID (WT < 150 kg, CrCl > 30 mL/min) AND *Sequential Compression Device (SCD) Assessment and Plan Assessment and Plan Altered mental status with advanced dementia and failure to thrive Patient will be admitted with physical therapy to eval and treat as well as occupational therapy and speech therapy Patient does not appear to be able to take care of herself at all at home with failure to thrive Nausea and vomiting continue on fluids and antiemetics diet as tolerated Renal insufficiency/chronic kidney disease/dehydration continue on fluids IV and rehydration and oral intake if able Dementia resume her home medications Osteoarthritis and gait instability physical therapy and Occupational Therapy to eval and treat Parkinson's disease continue on her home Sinemet with aggressive physical therapy and Occupational Therapy Hypertension resume her home medications avoid any nephrotoxic agents Hyperlipidemia continue on her home medications GERD continue on PPI Failure to thrive and inability to take care of herself will need aggressive physical therapy and Occupational Therapy and more than likely long-term placement at correction facility versus other extended care facility We will try and rule out any neurological issues and have neuro checks every 4 hours Monitor labs Aggressive physical therapy and occupational therapy and speech therapy Case management for discharge planning more than likely SNF VS other extended- care facility Heparin for DVT prophylaxis PPI for GI prophylax Code Status Full code at this time Discussed Condition With RN and patient and emergency room physician and emergency room PA Physician Certification 2 Midnight Certification Type: Admission for Inpatient Services Order for Inpatient Services The services are ordered in accordance with Medicare regulations or non- Medicare payer requirements, as applicable. In the case of services not specified as inpatient-only, they are appropriately provided as inpatient services in accordance with the 2-midnight benchmark. Estimated LOS (days): 3 days is the estimated time the patient will need to remain in the hospital, assuming treatment plan goals are met and no additional complications. Post-Hospital Plan: SNF Problem Qualifiers (1) Nausea & vomiting: Qualified Codes: R11.2 - Nausea with vomiting, unspecified (2) Altered mental status: Qualified Codes: R41.82 - Altered mental status, unspecified Juwan Adhikari DO Oct 10, 2017 16:11
[2017-10-10] MEDS: SODIUM CHLOR 0.9% 1000 ML INJ 1,000 ML IV SCH (16:25)
[2017-10-10] MEDS: CARBIDOPA/LEVODOPA 25 MG/100 MG TAB PO SCH ×2 (16:25→21:07)
[2017-10-10] MEDS: HEPARIN SODIUM - SQ 10,000 UNITS/ML VIAL SQ SCH (16:25)
[2017-10-10 17:43] LABS: TROPONIN I LESS THAN 0.02 NG/ML (0.02-0.05)
[2017-10-10] MEDS ORDERED: cloNIDine HCL 0.2 MG TAB PO ONE (20:00)
[2017-10-10] MEDS: SODIUM CHLORIDE 0.9% FLUSH 10 ML FLUSH IV FLUSH SCH (21:00)
[2017-10-10] MEDS: DOCUSATE SODIUM 50 MG/SENNA 8.6 MG TAB PO SCH (21:07)
[2017-10-10] MEDS: DOCUSATE SODIUM 100 MG CAP PO SCH (21:07)
[2017-10-10] MEDS: CALCIUM/VITAMIN D 250 MG/125 U TAB PO SCH (21:07)
[2017-10-10] MEDS: OXYBUTYNIN CHLORIDE 5 MG TAB PO SCH (21:07)
[2017-10-10 22:44] LABS: TROPONIN I LESS THAN 0.02 NG/ML (0.02-0.05)
[2017-10-11] VITALS (10 sets, daily range): BP systolic 148–180; BP diastolic 72–95; PULSE 64–79; RESP 15–22; TEMP 97.3–98.2; O2SAT 72–100
[2017-10-11] MEDS: HEPARIN SODIUM - SQ 10,000 UNITS/ML VIAL SQ SCH ×3 (00:46→15:44)
[2017-10-11] MEDS: SODIUM CHLOR 0.9% 1000 ML INJ 1,000 ML IV SCH ×2 (02:31→12:41)
[2017-10-11] MEDS: CARBIDOPA/LEVODOPA 25 MG/100 MG TAB PO SCH ×3 (05:58→22:00)
[2017-10-11 07:26] LABS: AUTOMATED NEUTROPHIL # 4.8 TH/MM3 (1.8-7.7); BASOPHIL # 0.1 TH/MM3 (0-0.2); BASOPHIL % 1.1 % (0.0-2.0); EOSINOPHIL # 0.3 TH/MM3 (0-0.4); HEMATOCRIT 29.8 % (35.0-46.0); HEMOGLOBIN 9.7 GM/DL (11.6-15.3); LYMPH % 10.3 % (9.0-44.0); LYMPHOCYTE # 0.6 TH/MM3 (1.0-4.8); MEAN CELL VOLUME 96.9 FL (80.0-100.0); MEAN CORPUSCULAR HEMOGLOBIN 31.6 PG (27.0-34.0); MEAN CORPUSCULAR HGB CONC 32.6 % (32.0-36.0); MONO % 7.6 % (0.0-8.0); MONOCYTE # 0.5 TH/MM3 (0-0.9); PLATELET COUNT 114 TH/MM3 (150-450); RED BLOOD COUNT 3.08 MIL/MM3 (4.00-5.30); RED CELL DISTRIBUTION WIDTH 14.3 % (11.6-17.2); WHITE BLOOD COUNT 6.3 TH/MM3 (4.0-11.0)
[2017-10-11 07:45] LABS: ALT (GPT) LESS THAN 6 U/L (10-53); AST (GOT) 11 U/L (15-37); BICARBONATE 20.9 MEQ/L (21.0-32.0); BLOOD UREA NITROGEN 18 MG/DL (7-18); CALCIUM 7.7 MG/DL (8.5-10.1); CHLORIDE 114 MEQ/L (98-107); CREATININE 1.39 MG/DL (0.50-1.00); GLOMERULAR FILTRATION RATE 37 ML/MIN (>89); GLUCOSE,RANDOM 75 MG/DL (74-106); MAGNESIUM 1.4 MG/DL (1.5-2.5); SODIUM (NA) 145 MEQ/L (136-145)
[2017-10-11 07:48] LABS: ALKALINE PHOSPHATASE 61 U/L (45-117); FREE T4 1.09 NG/DL (0.76-1.46); TOTAL BILIRUBIN ADULT 0.5 MG/DL (0.2-1.0); TOTAL PROTEIN 5.6 GM/DL (6.4-8.2)
[2017-10-11] MEDS: MEMANTINE HCL 10 MG TAB PO SCH (09:00)
[2017-10-11] MEDS: OXYBUTYNIN CHLORIDE 5 MG TAB PO SCH ×2 (09:00→21:00)
[2017-10-11] MEDS: DOCUSATE SODIUM 50 MG/SENNA 8.6 MG TAB PO SCH ×2 (09:00→21:00)
[2017-10-11] MEDS: MAGNESIUM OXIDE 400 MG TAB PO SCH (09:00)
[2017-10-11] MEDS: SODIUM CHLORIDE 0.9% FLUSH 10 ML FLUSH IV FLUSH SCH ×2 (09:00→21:00)
[2017-10-11] MEDS: PRAVASTATIN SOD 40 MG TAB PO SCH (09:00)
[2017-10-11] MEDS: DULoxetine HCl DR 60 MG CAP PO SCH (09:00)
[2017-10-11] MEDS: ASPIRIN EC 81 MG TABEC PO SCH (09:00)
[2017-10-11] MEDS: CHOLECALCIFEROL (VIT D3) 5000 UNIT CAP PO SCH (09:00)
[2017-10-11] MEDS: THIAMINE HCL 100 MG TAB PO SCH (09:00)
[2017-10-11] MEDS: CALCIUM/VITAMIN D 250 MG/125 U TAB PO SCH ×2 (09:00→21:00)
[2017-10-11] MEDS: NIFEdipine 30 MG SUSTAINED RELEASE TAB PO SCH (09:00)
[2017-10-11] MEDS: cloNIDine HCL 0.2 MG TAB PO PRN (12:56)
--- NOTE | 2017-10-11 13:30 | HHI.PR ---
Subjective Remarks The patient was resting comfortably in bed. She seemed a little confused. She said she was nauseous at times. No other acute concerns. Discussed with nursing. Objective Vitals Vital Signs Date Time Temp Pulse Resp B/P (MAP) Pulse Ox O2 Delivery O2 Flow Rate FiO2 10/11/17 11:27 71 10/11/17 11:00 98.1 64 17 161/72 (101) 100 10/11/17 08:53 92 21 10/11/17 08:00 97.9 67 16 180/95 (123) 100 10/11/17 04:00 97.3 71 15 159/75 (103) 94 10/11/17 04:00 76 10/11/17 00:00 74 10/11/17 00:00 97.8 79 15 148/87 (107) 94 10/10/17 21:50 97.9 84 16 184/90 (121) 94 10/10/17 20:12 78 16 181/96 (124) 95 10/10/17 19:58 77 16 182/90 (120) 97 Room Air 10/10/17 19:05 76 197/105 (135) 10/10/17 18:33 76 14 198/103 (134) 97 Room Air 10/10/17 16:37 95 21 10/10/17 16:29 89 14 179/93 (121) 94 Room Air 10/10/17 16:04 179/93 (121) 10/10/17 13:44 80 16 186/99 (128) 98 Room Air I/O 10/10/17 10/10/17 10/10/17 10/11/17 10/11/17 10/11/17 07:00 15:00 23:00 07:00 15:00 23:00 Intake Total 500 ml 200 ml 1000 ml Output Total 100 ml Balance -100 ml 500 ml 200 ml 1000 ml Intake Oral 200 ml IV Total 500 ml 1000 ml Output Urine Total 100 ml # Voids 1 2 Result Diagram: 10/11/1763810/11/17638 Imaging Last Impressions Head CT 10/10/171212 Signed Impressions: CONCLUSION: 1. 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 2. Chronic small vessel ischemic change. 3. No acute intracranial abnormality. Chest X-Ray 10/10/171212 Signed Impressions: CONCLUSION: No acute cardiopulmonary abnormality is identified. Hip and Pelvis X-Ray 10/10/17 Signed Impressions: CONCLUSION: Intact total hip arthroplasty bilaterally. Abdomen/Pelvis CT 10/10/17 Signed Impressions: CONCLUSION: Nonobstructing renal stones and cholelithiasis. Objective Remarks GENERAL: No distress. SKIN: No rashes, ecchymoses or lesions. Cool and dry. HEAD: Atraumatic. Normocephalic. No temporal or scalp tenderness. EYES: Pupils equal round and reactive. Extraocular motions intact. No scleral icterus. No injection or drainage. Bilateral surgical pupils. ENT: Nose without bleeding, purulent drainage or septal hematoma. Throat without erythema, tonsillar hypertrophy or exudate. Uvula midline. Airway patent. NECK: Trachea midline. No JVD or lymphadenopathy. Supple, nontender, no meningeal signs. CARDIOVASCULAR: Regular rate and rhythm without murmurs, gallops, or rubs. RESPIRATORY: Clear to auscultation. Breath sounds equal bilaterally. No wheezes , rales, or rhonchi. GASTROINTESTINAL: Abdomen soft, non-tender, nondistended. No hepato-splenomegaly , or palpable masses. No guarding. MUSCULOSKELETAL: Extremities without clubbing, cyanosis, or edema. No joint tenderness, effusion, or edema noted. NEUROLOGICAL: Awake and alert follows some commands but is not very verbal. Cranial nerves II through XII intact. Motor and sensory grossly within normal limits. 3 out of 5 muscle strength in all muscle groups. Minimally verbal. A/P Problem List: (1) RITA (acute kidney injury) ICD Code: N17.9 - Acute kidney failure, unspecified Status: Acute (2) Nausea & vomiting ICD Code: R11.2 - Nausea with vomiting, unspecified Status: Acute (3) Altered mental status ICD Code: R41.82 - Altered mental status, unspecified Status: Acute (4) Encephalopathy ICD Code: G93.40 - Encephalopathy, unspecified (5) Renal insufficiency ICD Code: N28.9 - Disorder of kidney and ureter, unspecified (6) CVA (cerebral vascular accident) ICD Code: I63.9 - Cerebral infarction, unspecified (7) Parkinsonism ICD Code: G20 - Parkinson's disease Status: Chronic (8) Malignant carcinoid syndrome ICD Code: E34.0 - Carcinoid syndrome Status: Acute (9) Impaired mobility and activities of daily living ICD Code: Z74.09 - Other reduced mobility Status: Acute (10) Swallowing difficulty ICD Code: R13.10 - Dysphagia, unspecified Status: Acute (11) Vitamin D deficiency ICD Code: E55.9 - Vitamin D deficiency, unspecified Status: Acute Assessment and Plan Altered mental status With advanced dementia, Parkinson's and failure to thrive. - will need aggressive physical therapy, occupational therapy and speech therapy. - neuro checks. - continue Sinemet. - NPO per ST. IVFs. Nausea and vomiting LFTs, lipase and CT abdomen unremarkable. - continue on fluids. - antiemetics as needed. - GI consult if continues. - start PPI. Renal insufficiency/chronic kidney disease Seems stable. - continue on fluids IV. - avoid nephrotoxins. Hypertension Blood pressure elevated at times. - resume her home medications. - clonidine and Vasotec as needed. Heparin for DVT prophylaxis Problem Qualifiers (1) Nausea & vomiting: Qualified Codes: R11.2 - Nausea with vomiting, unspecified (2) Altered mental status: Qualified Codes: R41.82 - Altered mental status, unspecified Ethan Plaza DO Oct 11, 2017 13:30
[2017-10-11] MEDS: DEXT 5%-NACL 0.45% 1000 ML INJ 1,000 ML IV SCH (15:43)
[2017-10-11] MEDS: MAGNESIUM SULFATE 1 GM PREMIX 100 ML IV SCH ×2 (15:43→18:02)
[2017-10-11] MEDS: PANTOPRAZOLE SODIUM 40 MG VIAL IV PUSH SCH (15:44)
--- NOTE | 2017-10-11 15:46 | EKG ---
Date Performed: 10/10/2017 Time Performed: 11:26:41 PTAGE: 77 years EKG: Sinus rhythm NORMAL ECG Since the PREVIOUS TRACING , no significant change noted PREVIOUS TRACIN07/27/2017 18.54 DOCTOR: Audra Navarro Interpretating Date/Time 10/11/2017 15:44:58
[2017-10-11 16:16] LABS: HEMOGLOBIN A1C 5.2 % (4.3-6.0)
[2017-10-11] MEDS: DOCUSATE SODIUM 100 MG CAP PO SCH (21:00)
[2017-10-11] MEDS: ENALAPRILAT 1.25 MG/ML VIAL IV PUSH PRN (22:38)
[2017-10-12] VITALS (10 sets, daily range): BP systolic 161–187; BP diastolic 80–88; PULSE 59–76; RESP 18; TEMP 97.2–98.2; O2SAT 97–100
[2017-10-12] MEDS: HEPARIN SODIUM - SQ 10,000 UNITS/ML VIAL SQ SCH ×3 (00:38→16:00)
[2017-10-12] MEDS: DEXT 5%-NACL 0.45% 1000 ML INJ 1,000 ML IV SCH ×3 (00:41→21:51)
[2017-10-12 05:36] LABS: HEMATOCRIT 30.4 % (35.0-46.0); MEAN CELL VOLUME 96.8 FL (80.0-100.0); PLATELET COUNT 112 TH/MM3 (150-450); RED BLOOD COUNT 3.14 MIL/MM3 (4.00-5.30); RED CELL DISTRIBUTION WIDTH 13.8 % (11.6-17.2); WHITE BLOOD COUNT 6.1 TH/MM3 (4.0-11.0)
[2017-10-12 05:51] LABS: BICARBONATE 20.7 MEQ/L (21.0-32.0); CALCIUM 7.6 MG/DL (8.5-10.1); CREATININE 1.27 MG/DL (0.50-1.00); MAGNESIUM 1.8 MG/DL (1.5-2.5)
[2017-10-12] MEDS: CARBIDOPA/LEVODOPA 25 MG/100 MG TAB PO SCH ×3 (06:00→21:52)
[2017-10-12] MEDS: SODIUM CHLORIDE 0.9% FLUSH 10 ML FLUSH IV FLUSH SCH ×2 (09:00→21:00)
[2017-10-12] MEDS: DOCUSATE SODIUM 50 MG/SENNA 8.6 MG TAB PO SCH ×2 (09:00→21:00)
[2017-10-12] MEDS: CHOLECALCIFEROL (VIT D3) 5000 UNIT CAP PO SCH (09:00)
[2017-10-12] MEDS: NIFEdipine 30 MG SUSTAINED RELEASE TAB PO SCH (09:00)
[2017-10-12] MEDS: ASPIRIN EC 81 MG TABEC PO SCH (09:00)
[2017-10-12] MEDS: THIAMINE HCL 100 MG TAB PO SCH (09:00)
[2017-10-12] MEDS: MAGNESIUM OXIDE 400 MG TAB PO SCH (09:00)
[2017-10-12] MEDS: OXYBUTYNIN CHLORIDE 5 MG TAB PO SCH (09:00)
[2017-10-12] MEDS: PRAVASTATIN SOD 40 MG TAB PO SCH (09:00)
[2017-10-12] MEDS: CALCIUM/VITAMIN D 250 MG/125 U TAB PO SCH ×2 (09:00→21:00)
[2017-10-12] MEDS: MEMANTINE HCL 10 MG TAB PO SCH (09:00)
[2017-10-12] MEDS: DULoxetine HCl DR 60 MG CAP PO SCH (09:00)
[2017-10-12] MEDS: ENALAPRILAT 1.25 MG/ML VIAL IV PUSH PRN ×2 (11:22→18:32)
[2017-10-12] MEDS: PANTOPRAZOLE SODIUM 40 MG VIAL IV PUSH SCH (12:44)
[2017-10-12] MEDS: QUEtiapine FUMARATE 25 MG TAB PO SCH ×2 (14:45→21:52)
--- NOTE | 2017-10-12 14:45 | HHI.PR ---
Subjective Remarks The patient said that she did not want to be restrained. She said she would eat something that we did not prepare. She does not believe she is in the hospital. She believes she is in her sister's house. She says she may be getting dehydrated but does not want to drink anything. Discussed with nursing. Objective Vitals Vital Signs Date Time Temp Pulse Resp B/P (MAP) Pulse Ox O2 Delivery O2 Flow Rate FiO2 10/12/17 11:53 97.2 70 18 163/87 (112) 100 10/12/17 11:28 66 10/12/17 09:47 100 10/12/17 08:01 97.2 75 18 187/84 (118) 100 10/12/17 04:23 59 10/12/17 04:00 97.5 70 18 162/86 (111) 97 10/12/17 00:00 98.2 67 18 161/80 (107) 98 10/11/17 20:00 98.2 75 22 178/88 (118) 96 10/11/17 17:57 97 21 10/11/17 16:00 70 10/11/17 16:00 97.9 72 18 178/81 (113) 97 I/O 10/11/17 10/11/17 10/11/17 10/12/17 10/12/17 10/12/17 07:00 15:00 23:00 07:00 15:00 23:00 Intake Total 200 ml 1000 ml 298 ml Balance 200 ml 1000 ml 298 ml Intake Oral 200 ml IV Total 1000 ml 298 ml # Voids 2 3 Result Diagram: 10/12/17 0438 10/12/17 0438 Imaging Last Impressions Head CT 10/10/171212 Signed Impressions: CONCLUSION: 1. 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 2. Chronic small vessel ischemic change. 3. No acute intracranial abnormality. Chest X-Ray 10/10/17 121 Signed Impressions: CONCLUSION: No acute cardiopulmonary abnormality is identified. Hip and Pelvis X-Ray 10/10/17 0000 Signed Impressions: CONCLUSION: Intact total hip arthroplasty bilaterally. Abdomen/Pelvis CT 10/10/17 0000 Signed Impressions: CONCLUSION: Nonobstructing renal stones and cholelithiasis. Objective Remarks GENERAL: No distress. SKIN: No rashes, ecchymoses or lesions. Cool and dry. HEAD: Atraumatic. Normocephalic. No temporal or scalp tenderness. EYES: Pupils equal round and reactive. Extraocular motions intact. No scleral icterus. No injection or drainage. Bilateral surgical pupils. ENT: Nose without bleeding, purulent drainage or septal hematoma. Throat without erythema, tonsillar hypertrophy or exudate. Uvula midline. Airway patent. NECK: Trachea midline. No JVD or lymphadenopathy. Supple, nontender, no meningeal signs. CARDIOVASCULAR: Regular rate and rhythm without murmurs, gallops, or rubs. RESPIRATORY: Clear to auscultation. Breath sounds equal bilaterally. No wheezes , rales, or rhonchi. GASTROINTESTINAL: Abdomen soft, non-tender, nondistended. No hepato-splenomegaly , or palpable masses. No guarding. MUSCULOSKELETAL: Extremities without clubbing, cyanosis, or edema. No joint tenderness, effusion, or edema noted. NEUROLOGICAL: Awake and alert follows some commands but is not very verbal. Cranial nerves II through XII intact. Motor and sensory grossly within normal limits. 3 out of 5 muscle strength in all muscle groups. PSYCH: Paranoid. A/P Problem List: (1) RITA (acute kidney injury) ICD Code: N17.9 - Acute kidney failure, unspecified Status: Acute (2) Nausea & vomiting ICD Code: R11.2 - Nausea with vomiting, unspecified Status: Acute (3) Altered mental status ICD Code: R41.82 - Altered mental status, unspecified Status: Acute (4) Encephalopathy ICD Code: G93.40 - Encephalopathy, unspecified (5) Renal insufficiency ICD Code: N28.9 - Disorder of kidney and ureter, unspecified (6) CVA (cerebral vascular accident) ICD Code: I63.9 - Cerebral infarction, unspecified (7) Parkinsonism ICD Code: G20 - Parkinson's disease Status: Chronic (8) Malignant carcinoid syndrome ICD Code: E34.0 - Carcinoid syndrome Status: Acute (9) Impaired mobility and activities of daily living ICD Code: Z74.09 - Other reduced mobility Status: Acute (10) Swallowing difficulty ICD Code: R13.10 - Dysphagia, unspecified Status: Acute (11) Vitamin D deficiency ICD Code: E55.9 - Vitamin D deficiency, unspecified Status: Acute Assessment and Plan Altered mental status/ Paranoia The pt has advanced dementia, Parkinson's and failure to thrive. She has been refusing her meds. - will need aggressive physical therapy, occupational therapy and speech therapy. - neuro checks. - continue Sinemet. - NPO per ST. IVFs. - psychiatry consult for paranoia. - dietary consult for tube feeding recommendations if needed. - trial of Seroquel. Nausea and vomiting LFTs, lipase and CT abdomen unremarkable. Seems resolved. - continue on fluids. - antiemetics as needed. - PPI. Renal insufficiency/chronic kidney disease Seems stable. - continue on fluids IV. - avoid nephrotoxins. Hypertension Blood pressure elevated at times. - clonidine and Vasotec as needed. Heparin for DVT prophylaxis Problem Qualifiers (1) Nausea & vomiting: Qualified Codes: R11.2 - Nausea with vomiting, unspecified (2) Altered mental status: Qualified Codes: R41.82 - Altered mental status, unspecified Ethan Plaza DO Oct 12, 2017 14:45
[2017-10-12] MEDS: DOCUSATE SODIUM 100 MG CAP PO SCH (21:00)
[2017-10-12] MEDS: cloNIDine HCL 0.2 MG TAB PO PRN (21:52)
[2017-10-13] VITALS (8 sets, daily range): BP systolic 165–196; BP diastolic 81–95; PULSE 43–69; RESP 18; TEMP 97.5–98.3; O2SAT 95–97
[2017-10-13] MEDS: HEPARIN SODIUM - SQ 10,000 UNITS/ML VIAL SQ SCH ×3 (00:25→16:00)
[2017-10-13 08:16] LABS: HEMATOCRIT 31.6 % (35.0-46.0); HEMOGLOBIN 10.5 GM/DL (11.6-15.3); MEAN CORPUSCULAR HEMOGLOBIN 31.8 PG (27.0-34.0); MEAN CORPUSCULAR HGB CONC 33.1 % (32.0-36.0); MEAN PLATELET VOLUME 11.2 FL (7.0-11.0); PLATELET COUNT 116 TH/MM3 (150-450); RED BLOOD COUNT 3.29 MIL/MM3 (4.00-5.30); RED CELL DISTRIBUTION WIDTH 13.7 % (11.6-17.2); WHITE BLOOD COUNT 6.7 TH/MM3 (4.0-11.0)
[2017-10-13 08:27] LABS: BICARBONATE 20.1 MEQ/L (21.0-32.0); CALCIUM 7.3 MG/DL (8.5-10.1); CREATININE 1.14 MG/DL (0.50-1.00); MAGNESIUM 1.7 MG/DL (1.5-2.5)
[2017-10-13 08:40] LABS: CALCIUM-PROTEIN CORRECTED 8.2 MG/DL (8.5-10.1); TOTAL PROTEIN 5.4 GM/DL (6.4-8.2)
[2017-10-13] MEDS: CALCIUM/VITAMIN D 250 MG/125 U TAB PO SCH (09:00)
[2017-10-13] MEDS: DOCUSATE SODIUM 50 MG/SENNA 8.6 MG TAB PO SCH (09:00)
[2017-10-13] MEDS: QUEtiapine FUMARATE 25 MG TAB PO SCH (09:00)
[2017-10-13] MEDS: MEMANTINE HCL 10 MG TAB PO SCH (09:00)
[2017-10-13] MEDS: THIAMINE HCL 100 MG TAB PO SCH (09:00)
[2017-10-13] MEDS: MAGNESIUM OXIDE 400 MG TAB PO SCH (09:00)
[2017-10-13] MEDS: DULoxetine HCl DR 60 MG CAP PO SCH ×2 (09:00→14:16)
[2017-10-13] MEDS: PRAVASTATIN SOD 40 MG TAB PO SCH (09:00)
[2017-10-13] MEDS: ASPIRIN EC 81 MG TABEC PO SCH (09:00)
[2017-10-13] MEDS: CHOLECALCIFEROL (VIT D3) 5000 UNIT CAP PO SCH (09:00)
[2017-10-13] MEDS: NIFEdipine 30 MG SUSTAINED RELEASE TAB PO SCH (09:00)
[2017-10-13] MEDS: DEXT 5%-NACL 0.45% 1000 ML INJ 1,000 ML IV SCH ×2 (09:33→15:30)
[2017-10-13] MEDS: SODIUM CHLORIDE 0.9% FLUSH 10 ML FLUSH IV FLUSH SCH (09:35)
[2017-10-13] MEDS ORDERED: CALCIUM GLUCONATE INJ 1 GM in SODIUM CHLORIDE 0.9% INJ 100 ML IV ONE (11:30)
--- NOTE | 2017-10-13 12:04 | HHI.PR ---
Subjective Remarks The patient was awake and alert. She wanted to be out of the restraints. She said that she would try to eat if the diet was soft and she was out of restraints. She does not want a feeding tube in her nose. Discussed with nursing. Objective Vitals Vital Signs Date Time Temp Pulse Resp B/P (MAP) Pulse Ox O2 Delivery O2 Flow Rate FiO2 10/13/17 09:39 196/95 (128) 10/13/17 08:00 97.9 62 18 196/95 (128) 97 10/13/17 05:17 97.5 61 18 170/81 (110) 96 10/13/17 02:31 66 10/13/17 00:33 97.8 69 18 165/86 (112) 97 10/12/17 19:49 98.1 65 18 174/86 (115) 98 10/12/17 17:52 97 21 10/12/17 15:58 97.9 76 18 187/88 (121) 97 I/O 10/12/17 10/12/17 10/12/17 10/13/17 10/13/17 10/13/17 06:59 14:59 22:59 06:59 14:59 22:59 Output Total 400 ml Balance -400 ml Output Urine Total 400 ml # Voids 3 3 Result Diagram: 10/13/1762410/13/17624 Imaging Last Impressions Head CT 10/10/17 121 Signed Impressions: CONCLUSION: 1. 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 2. Chronic small vessel ischemic change. 3. No acute intracranial abnormality. Chest X-Ray 10/10/17 121 Signed Impressions: CONCLUSION: No acute cardiopulmonary abnormality is identified. Hip and Pelvis X-Ray 10/10/17 0000 Signed Impressions: CONCLUSION: Intact total hip arthroplasty bilaterally. Abdomen/Pelvis CT 10/10/17 0000 Signed Impressions: CONCLUSION: Nonobstructing renal stones and cholelithiasis. Objective Remarks GENERAL: No distress. SKIN: No rashes, ecchymoses or lesions. Cool and dry. HEAD: Atraumatic. Normocephalic. No temporal or scalp tenderness. EYES: Pupils equal round and reactive. Extraocular motions intact. No scleral icterus. No injection or drainage. Bilateral surgical pupils. ENT: Nose without bleeding, purulent drainage or septal hematoma. Throat without erythema, tonsillar hypertrophy or exudate. Uvula midline. Airway patent. NECK: Trachea midline. No JVD or lymphadenopathy. Supple, nontender, no meningeal signs. CARDIOVASCULAR: Regular rate and rhythm without murmurs, gallops, or rubs. RESPIRATORY: Clear to auscultation. Breath sounds equal bilaterally. No wheezes , rales, or rhonchi. GASTROINTESTINAL: Abdomen soft, non-tender, nondistended. No hepato-splenomegaly , or palpable masses. No guarding. MUSCULOSKELETAL: Extremities without clubbing, cyanosis, or edema. No joint tenderness, effusion, or edema noted. NEUROLOGICAL: Awake and alert follows some commands but is not very verbal. Cranial nerves II through XII intact. Motor and sensory grossly within normal limits. 3 out of 5 muscle strength in all muscle groups. PSYCH: Paranoid. A/P Problem List: (1) RITA (acute kidney injury) ICD Code: N17.9 - Acute kidney failure, unspecified Status: Acute (2) Nausea & vomiting ICD Code: R11.2 - Nausea with vomiting, unspecified Status: Acute (3) Altered mental status ICD Code: R41.82 - Altered mental status, unspecified Status: Acute (4) Encephalopathy ICD Code: G93.40 - Encephalopathy, unspecified (5) Renal insufficiency ICD Code: N28.9 - Disorder of kidney and ureter, unspecified (6) CVA (cerebral vascular accident) ICD Code: I63.9 - Cerebral infarction, unspecified (7) Parkinsonism ICD Code: G20 - Parkinson's disease Status: Chronic (8) Malignant carcinoid syndrome ICD Code: E34.0 - Carcinoid syndrome Status: Acute (9) Impaired mobility and activities of daily living ICD Code: Z74.09 - Other reduced mobility Status: Acute (10) Swallowing difficulty ICD Code: R13.10 - Dysphagia, unspecified Status: Acute (11) Vitamin D deficiency ICD Code: E55.9 - Vitamin D deficiency, unspecified Status: Acute Assessment and Plan Altered mental status/ Paranoia The pt has advanced dementia, Parkinson's and failure to thrive. She has been refusing her meds. - will need aggressive physical therapy, occupational therapy and speech therapy. - neuro checks. - continue Sinemet. - NPO per ST. IVFs. Will place NGT and start tube feeds if pt does not cooperate with nursing bedside swallow eval. - psychiatry consult for paranoia. - consult palliative care to help clarify goals of care. - trial of Seroquel. Nausea and vomiting LFTs, lipase and CT abdomen unremarkable. Seems resolved. - continue on fluids. - antiemetics as needed. - PPI. Renal insufficiency/chronic kidney disease Seems stable. - continue on fluids IV. - avoid nephrotoxins. Hypokalemia K 3.3. - IV KCl. - follow BMP. Hypertension Blood pressure elevated at times. - clonidine and Vasotec as needed. Heparin for DVT prophylaxis Problem Qualifiers (1) Nausea & vomiting: Qualified Codes: R11.2 - Nausea with vomiting, unspecified (2) Altered mental status: Qualified Codes: R41.82 - Altered mental status, unspecified Ethan Plaza DO Oct 13, 2017 12:04
[2017-10-13] MEDS: PANTOPRAZOLE SODIUM 40 MG VIAL IV PUSH SCH (13:30)
[2017-10-13] MEDS: POTASSIUM CHLOR 20 MEQ PREMIX 100 ML IV SCH ×2 (13:53→14:20)
[2017-10-13] MEDS: CARBIDOPA/LEVODOPA 25 MG/100 MG TAB PO SCH (13:54)
--- NOTE | 2017-10-13 14:04 | HHI.DCPOC ---
Discharge Care Plan Diagnosis: (1) Malnutrition (2) Unspecified psychosis (3) Parkinsonism (4) Encephalopathy (5) Nausea & vomiting (6) Hypokalemia Goals to Promote Your Health * To prevent worsening of your condition and complications * To maintain your health at the optimal level Directions to Meet Your Goals Take your medications as prescribed Follow your dietary instruction Follow activity as directed Keep your appointments as scheduled Take your immunizations and boosters as scheduled If your symptoms worsen call your PCP, if no PCP go to Urgent Care Center or Emergency Room Smoking is Dangerous to Your Health. Avoid second hand smoke Call the 24-hour hour crisis hotline for domestic abuse at Ethan Plaza DO Oct 13, 2017 14:04
[2017-10-13] MEDS ORDERED: CLON.2T T-DERMAL (14:08)
--- NOTE | 2017-10-13 14:13 | HHI.DS ---
Discharge Summary Admission Date Oct 10, 2017 at 15:51 Discharge Date: Oct 13, 2017 Admitting Diagnosis altered mental status, dehydration, vomit (1) RITA (acute kidney injury) ICD Code: N17.9 - Acute kidney failure, unspecified Status: Acute (2) Nausea & vomiting ICD Code: R11.2 - Nausea with vomiting, unspecified Status: Acute (3) Altered mental status ICD Code: R41.82 - Altered mental status, unspecified Status: Acute (4) Encephalopathy ICD Code: G93.40 - Encephalopathy, unspecified Diagnosis: Principal (5) Renal insufficiency ICD Code: N28.9 - Disorder of kidney and ureter, unspecified (6) CVA (cerebral vascular accident) ICD Code: I63.9 - Cerebral infarction, unspecified (7) Parkinsonism ICD Code: G20 - Parkinson's disease Diagnosis: Principal Status: Chronic (8) Malignant carcinoid syndrome ICD Code: E34.0 - Carcinoid syndrome Status: Acute (9) Impaired mobility and activities of daily living ICD Code: Z74.09 - Other reduced mobility Status: Acute (10) Swallowing difficulty ICD Code: R13.10 - Dysphagia, unspecified Status: Acute (11) Unspecified psychosis ICD Code: F29 - Unspecified psychosis not due to a substance or known physiological condition Diagnosis: Principal (12) Hypokalemia ICD Code: E87.6 - Hypokalemia Status: Acute (13) Malnutrition ICD Code: E46 - Unspecified protein-calorie malnutrition Diagnosis: Principal Status: Acute Procedures None Brief History - From Admission Patient is a 77-year-old female who presented to the emergency department earlier today with a persistent nausea and vomiting and weakness and some pain in her right hip. Patient is a very poor historian. Has history of dementia also has history of Parkinson's has history of carcinoid tumors. Has history of chronic diarrhea. Has advancing dementia. Not able to answer some questions well very limited history from her and some nausea and been feeling weak. [facility] Patient complains of some right hip pain. Has a history of recent CVA has history of anxiety and depression per chart review as well as arthritis and high cholesterol on lung cancer history of chemotherapy in the past also has a history of Parkinson's and psoriasis Patient will be admitted will consult physical therapy and occupational therapy and speech therapy. Patient will more than likely need chronic placements and she appears not able to take care of herself at all. Will more than likely need a long-term facility. CBC/BMP: 10/13/17 0625 10/13/17 0625 Significant Findings Laboratory Tests Test 10/10/17 16:00 10/10/17 21:29 10/11/17 06:39 10/12/17 04:38 Total Creatine Kinase 24 U/L (26-192) Troponin I LESS THAN 0.02 NG/ML LESS THAN 0.02 NG/ML Red Blood Count 3.08 MIL/MM3 (4.00-5.30) 3.14 MIL/MM3 (4.00-5.30) Hemoglobin 9.7 GM/DL (11.6-15.3) 10.0 GM/DL (11.6-15.3) Hematocrit 29.8 % (35.0-46.0) 30.4 % (35.0-46.0) Platelet Count 114 TH/MM3 (150-450) 112 TH/MM3 (150-450) Neutrophils (%) (Auto) 76.0 % (16.0-70.0) Eosinophils (%) (Auto) 5.0 % (0.0-4.0) Lymphocytes # (Auto) 0.6 TH/MM3 (1.0-4.8) Creatinine 1.39 MG/DL (0.50-1.00) 1.27 MG/DL (0.50-1.00) Total Protein 5.6 GM/DL (6.4-8.2) Albumin 3.0 GM/DL (3.4-5.0) Calcium Level 7.7 MG/DL (8.5-10.1) 7.6 MG/DL (8.5-10.1) Magnesium Level 1.4 MG/DL (1.5-2.5) Aspartate Amino Transf (AST/SGOT) 11 U/L (15-37) Alanine Aminotransferase (ALT/SGPT) LESS THAN 6 U/L (10-53) Chloride Level 114 MEQ/L (98-107) 112 MEQ/L (98-107) Carbon Dioxide Level 20.9 MEQ/L (21.0-32.0) 20.7 MEQ/L (21.0-32.0) Estimat Glomerular Filtration Rate 37 ML/MIN (>89) 41 ML/MIN (>89) Random Glucose 144 MG/DL (74-106) Test 10/13/17 06:25 Red Blood Count 3.29 MIL/MM3 (4.00-5.30) Hemoglobin 10.5 GM/DL (11.6-15.3) Hematocrit 31.6 % (35.0-46.0) Platelet Count 116 TH/MM3 (150-450) Mean Platelet Volume 11.2 FL (7.0-11.0) Creatinine 1.14 MG/DL (0.50-1.00) Random Glucose 117 MG/DL (74-106) Total Protein 5.4 GM/DL (6.4-8.2) Calcium Level 7.3 MG/DL (8.5-10.1) Potassium Level 3.3 MEQ/L (3.5-5.1) Chloride Level 115 MEQ/L (98-107) Carbon Dioxide Level 20.1 MEQ/L (21.0-32.0) Estimat Glomerular Filtration Rate 46 ML/MIN (>89) Protein Corrected Calcium 8.2 MG/DL (8.5-10.1) Imaging Last Impressions Head CT 10/10/171212 Signed Impressions: CONCLUSION: 1. 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 2. Chronic small vessel ischemic change. 3. No acute intracranial abnormality. Chest X-Ray 10/10/171212 Signed Impressions: CONCLUSION: No acute cardiopulmonary abnormality is identified. Hip and Pelvis X-Ray 10/10/17 0000 Signed Impressions: CONCLUSION: Intact total hip arthroplasty bilaterally. Abdomen/Pelvis CT 10/10/17 Signed Impressions: CONCLUSION: Nonobstructing renal stones and cholelithiasis. PE at Discharge GENERAL: No distress. SKIN: No rashes, ecchymoses or lesions. Cool and dry. HEAD: Atraumatic. Normocephalic. No temporal or scalp tenderness. EYES: Pupils equal round and reactive. Extraocular motions intact. No scleral icterus. No injection or drainage. Bilateral surgical pupils. ENT: Nose without bleeding, purulent drainage or septal hematoma. Throat without erythema, tonsillar hypertrophy or exudate. Uvula midline. Airway patent. NECK: Trachea midline. No JVD or lymphadenopathy. Supple, nontender, no meningeal signs. CARDIOVASCULAR: Regular rate and rhythm without murmurs, gallops, or rubs. RESPIRATORY: Clear to auscultation. Breath sounds equal bilaterally. No wheezes , rales, or rhonchi. GASTROINTESTINAL: Abdomen soft, non-tender, nondistended. No hepato-splenomegaly , or palpable masses. No guarding. MUSCULOSKELETAL: Extremities without clubbing, cyanosis, or edema. No joint tenderness, effusion, or edema noted. NEUROLOGICAL: Awake and alert follows some commands but is not very verbal. Cranial nerves II through XII intact. Motor and sensory grossly within normal limits. 3 out of 5 muscle strength in all muscle groups. PSYCH: Paranoid. Hospital Course Altered mental status/ Paranoia The pt has advanced dementia, Parkinson's and failure to thrive. She has been refusing her medications. The pt worked with physical therapy, occupational therapy and speech therapy. We placed her on neuro checks. We continued her home medications, but she refused most of them. She was made NPO per ST. She was started on IVFs. We decided to place a NG tube and start tube feeds as the pt continued to refuse to eat. The gas and oil checker was consulted for tube feed recommendations. We consulted psychiatry for the pt's paranoia and malnutrition. It was decided to transfer the pt to the [facility]. A palliative care consult has also been requested. Discussed with the pt's daughter, who was agreeable with the plan. The pt was able to start swallowing fluids with her daughter to help her, so the NG tube may be deferred. Nausea and vomiting LFTs, lipase and CT abdomen unremarkable. She was continued on IV fluids. She received antiemetics as needed. She was started on a PPI. Hypokalemia/ Hypocalcemia She received KCl and calcium gluconate repletion. Hypertension Blood pressure was markedly elevated and she refused her medication. She received IV Vasotec. A clonidine patch was started. Pt Condition on Discharge: Stable Discharge Disposition: Disc to Psych Care Fac Discharge Time: > 30 minutes Discharge Instructions DIET: Follow Instructions for: On Tube Feeding Additional Diet Instructions: Jevity 1.5 goal of 45 ml/hr Activities you can perform: Weight Bearing as Praneeth Follow up Referrals: PCP Follow-up - 1 Week New Medications: Clonidine 168 HR Patch ([id number] 168 HR Patch) 0.2 Mg/24 Hr Patch 1 PATCH T-DERMAL Q7D for Blood Pressure Management, #2 PATCH Continued Medications: Aspirin DR (Aspirin DR) 81 Mg Tabdr 81 MG PO DAILY for Blood Clot Prevention for 30 Days, #30 TAB Calcium/Vitamin D (Oyster Shell 250 mg + Vit D Tb) 250 Mg Calcium (625 Mg)-125 Unit Tablet 250 MG PO Q12HR for Calcium Supplement for 30 Days, TAB Carbidopa-Levodopa (Carbidopa-Levodopa) 25-100 Mg Tab 1 TAB PO Q8HR, #90 TAB 1 Refill Cholecalciferol (Vitamin D3) 5,000 Unit Cap 5000 UNITS PO DAILY for vitamin for 30 Days, CAP Docusate Sodium (Docusate Sodium) 100 Mg Cap 100 MG PO HS for Prevent Constipation, #60 CAP [address] (Duloxetine DR) 60 Mg Capdr 60 MG PO DAILY, #30 CAP 0 Refills Magnesium Oxide (Magnesium Oxide) 400 Mg Tab 400 MG PO DAILY for electrolyte deficiency for 30 Days, #30 TAB Memantine (Memantine) 10 Mg Tab 10 MG PO DAILY for Alzheimer's Dementia, TAB 0 Refills Nifedipine ER 24 HR (Nifedipine ER 24 HR) 30 Mg Tab 30 MG PO DAILY for Blood Pressure Management for 30 Days, #30 TAB Ondansetron (Zofran) 4 Mg Tab 4 MG PO Q6HR PRN for NAUSEA OR VOMITING, TAB 0 Refills Oxybutynin (Ditropan) 5 Mg Tab 5 MG PO Q12HR for Urinary Symptom Managemen, #60 TAB 0 Refills Pravastatin (Pravachol) 40 Mg Tab 40 MG PO DAILY for Cholesterol Management for 30 Days, #30 TAB Thiamine HCl (Gnp Vitamin B-1) 100 Mg Tab 100 MG PO DAILY for vitamin for 30 Days, #30 TAB Discontinued Medications: Hydrocodone-Acetaminophen ([place]) 5 Mg-325 Mg Tab 1 TAB PO Q8HR PRN for PAIN, TAB 0 Refills Ethan Plaza DO Oct 13, 2017 14:13
--- NOTE | 2017-10-13 14:26 | PD.PSY.CON ---
Provisional Diagnosis Admission Date Oct 10, 2017 at 15:51 [place] I. 1. Dementia due to Parkinson's disease with behavioral disturbance Rule out component of dementia with Lewy body Rule out multifactorial dementia [place] II. Deferred History of Present Illness Service Psychiatry Consult Requested By Dr. Plaza Reason for Consult "Patient has early Parkinson's/dementia, she is refusing to eat anything because she is very suspicious/paranoid" Primary Care Physician Desiree Styles MD HPI Ms. Call is a 77-year-old female with a history of Parkinson's disease and associated dementia who was brought to the emergency department 3 days ago for complaints of nausea, vomiting, weakness and right hip pain. She has been admitted to the medical floor for management of nausea, vomiting, AMS and RITA. Reviewing the electronic medical record, I see no previous psychiatric contact within our system. Patient seen and examined. Chart reviewed. Case discussed with nurse and Dr. Plaza. Patient has reportedly been refusing food and plan is for NG tube placement. Patient has also been refusing most of her medications including the Seroquel that Dr. Plaza recently tried to start to manage patient's behaviors. On my examination today, the patient is exceedingly paranoid. She says "I was never admitted. Would it make you happy if I were in the next 2 seconds?" She accuses the staff of being out to get her and says "I feel sorry for you people. God will forgive you, I hope." When I ask about medication and food refusal, the patient blandly denies refusing either, although the MAR clearly reveals that the patient has been refusing medications. When I ask about psychiatric symptoms including suicidal ideation the patient replies "what does it matter." She is fairly uncooperative generally. She is also uncooperative with efforts at mental status testing although she seems quite confused in the interview. When I try to inquire about past psychiatric history, she says "why do you want to know? I had have to be crazy to live to be 89." The patient is in fact 77. Psychiatric interview is limited due to patient uncooperativeness. She has no acute physical complaints. I left a voicemail for patient's daughter Lor Call at number listed in EMR. I was able to speak with patient's other daughter Kristine Crabtree. Kristine notes that the patient has had Parkinson's disease for several years and onset of dementia followed the Parkinson's diagnosis. Memory impairment has been particularly acute in the last few months. Family apparently tried to have the patient placed in an assisted living facility, but she simply checked herself out. Patient has reportedly been paranoid for the last year. 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 I was able to reach Lor somewhat later at the number listed in the EMR and discussed the case with her as well. 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 She concurs with admission to the medical psychiatric unit for management of psychiatric symptoms. Review of Systems ROS Limitations: Uncooperative, Refused, Psychotic, Poor Historian Other Limited ROS secondary to above Past Family Social History Coded Allergies: penicillin G (Verified Allergy, Severe, RASH, 10/10/17) INTERMEDIATE REACTION milk (Verified Allergy, Mild, G I DISTRESS, 10/10/17) Sulfa (Sulfonamide Antibiotics) (Verified Adverse Reaction, Severe, GI DISTRESS, 10/10/17) INTERMEDIATE REACTION erythromycin base (Verified Adverse Reaction, Severe, GI DISTRESS, 10/10/17) INTERMEDIATE REACTION Past Medical History See electronic medical record Active Scripts Cholecalciferol (Vitamin D3) 5,000 Unit Cap, 5000 UNITS PO DAILY for vitamin for 30 Days, CAP Prov:Robin Cadet MD 08/01/17 Magnesium Oxide (Magnesium Oxide) 400 Mg Tab, 400 MG PO DAILY for electrolyte deficiency for 30 Days, #30 TAB Prov:Robin Cadet MD 08/01/[address] (Aspirin DR) 81 Mg Tabdr, 81 MG PO DAILY for Blood Clot Prevention for 30 Days, #30 TAB Prov:Robin Cadet MD 08/01/17 Nifedipine ER 24 HR (Nifedipine ER 24 HR) 30 Mg Tab, 30 MG PO DAILY for Blood Pressure Management for 30 Days, #30 TAB Prov:Robin Cadet MD 08/01/17 Pravastatin (Pravachol) 40 Mg Tab, 40 MG PO DAILY for Cholesterol Management for 30 Days, #30 TAB Prov:Robin Cadet MD 08/01/17 Thiamine HCl (Gnp Vitamin B-1) 100 Mg Tab, 100 MG PO DAILY for vitamin for 30 Days, #30 TAB Prov:Robin Cadet MD 08/01/17 Calcium/Vitamin D (Oyster Shell 250 mg + Vit D Tb) 250 Mg Calcium (625 Mg)-125 Unit Tablet, 250 MG PO Q12HR for Calcium Supplement for 30 Days, TAB Prov:Robin Cadet MD 08/01/17 Carbidopa-Levodopa (Carbidopa-Levodopa) 25-100 Mg Tab, 1 TAB PO Q8HR, #90 TAB 1 Refill Prov:Deep Dozier MD 04/06/16 Reported Medications Ondansetron (Zofran) 4 Mg Tab, 4 MG PO Q6HR Y for NAUSEA OR VOMITING, TAB 0 Refills 10/10/17 Hydrocodone-Acetaminophen ([place]) 5 Mg-325 Mg Tab, 1 TAB PO Q8HR Y for PAIN, TAB 0 Refills 10/10/17 Oxybutynin (Ditropan) 5 Mg Tab, 5 MG PO Q12HR for Urinary Symptom Managemen, # 60 TAB 0 Refills 10/10/17 Memantine (Memantine) 10 Mg Tab, 10 MG PO DAILY for Alzheimer's Dementia, TAB 0 Refills 10/10/[address] (Duloxetine DR) 60 Mg Capdr, 60 MG PO DAILY, #30 CAP 0 Refills 07/27/17 Docusate Sodium (Docusate Sodium) 100 Mg Cap, 100 MG PO HS for Prevent Constipation, #60 CAP 0 Refills 07/27/17 Discontinued Scripts Pantoprazole (Pantoprazole) 40 Mg Tab, 40 MG PO DAILY, #30 TAB 1 Refill Prov:Deep Dozier MD 04/06/16 Memantine (Memantine) 10 Mg Tab, 10 MG PO BID for Alzheimer's Dementia, #60 TAB 1 Refill Prov:Deep Dozier MD 04/06/16 Current Medications Medications (Trade) Dose Ordered Sig/José Antonio Route Start Time Stop Time Status Last Admin (NS Flush) 2 ml UNSCH PRN IV FLUSH 10/10/17 16:00 10/10/17 16:25 (NS Flush) 2 ml BID IV FLUSH 10/10/17 21:00 10/13/17 09:35 (Tylenol) 650 mg Q4H PRN PO 10/10/17 16:00 (Zofran Odt) 4 mg Q6H PRN PO 10/10/17 16:00 (Heparin Inj) 5,000 units Q8H SQ 10/10/17 16:00 10/13/17 08:00 (Tylenol) 650 mg Q6H PRN PO 10/10/17 16:00 (Narcan Inj) 0.4 mg UNSCH PRN IV PUSH 10/10/17 16:00 (Norma-Colace) 1 tab BID PO 10/10/17 21:00 10/10/17 21:07 (Milk Of Magnesia Liq) 30 ml Q12H PRN PO 10/10/17 16:00 (Senokot) 17.2 mg Q12H PRN PO 10/10/17 16:00 (Dulcolax Supp) 10 mg DAILY PRN RECTAL 10/10/17 16:00 (Lactulose Liq) 30 ml DAILY PRN PO 10/10/17 16:00 (Ecotrin Ec) 81 mg DAILY PO 10/11/17 09:00 (Oscal-D 250-125) 250 mg Q12HR PO 10/10/17 21:00 10/10/17 21:07 (Sinemet 25-100 Mg) 1 tab Q8HR PO 10/10/17 16:00 10/11/17 12:56 (Vitamin D3) 5,000 units DAILY PO 10/11/17 09:00 (Colace) 100 mg HS PO 10/10/17 21:00 10/10/17 21:07 (Cymbalta Dr) 60 mg DAILY PO 10/11/17 09:00 (Mag-Ox) 400 mg DAILY PO 10/11/17 09:00 (Namenda) 10 mg DAILY PO 10/11/17 09:00 (Procardia Xl) 30 mg DAILY PO 10/11/17 09:00 (Ditropan) 5 mg Q12HR PO 10/10/17 21:00 Future Hold 10/10/17 21:07 (Pravachol) 40 mg DAILY PO 10/11/17 09:00 (Vitamin B1) 100 mg DAILY PO 10/11/17 09:00 (Catapres) 0.2 mg Q6H PRN PO 10/11/17 00:30 10/12/17 21:52 Dextrose/Sodium Chloride 1,000 ml @ 100 mls/hr Q10H IV 10/11/17 13:30 10/13/17 09:33 (Protonix Inj) 40 mg Q24H IV PUSH 10/11/17 13:30 10/12/17 12:44 (SEROquel) 25 mg BID PO 10/12/17 14:45 10/12/17 21:52 Potassium Chloride 100 ml @ 50 mls/hr Q2H IV 10/13/17 11:30 10/13/17 15:29 (Vasotec Inj) 2.5 mg Q6H PRN IV PUSH 10/13/17 17:45 (Catapres-Tts 0.2 Mg Patch.7d) 1 patch Q7D T-DERMAL 10/13/17 15:00 Patient's Strengths (min. 2) In a monitored setting. Verbally fluent. Physical Exam Physical exam completed by primary team. On my examination today, the patient appears to be in no acute physical distress. She is fairly thin and ill- appearing. She is somewhat bradykinetic but no other motor abnormalities are noted. Labs and vital signs reviewed: Vital Signs Vital Signs Date Time Temp Pulse Resp B/P (MAP) Pulse Ox O2 Delivery O2 Flow Rate FiO2 10/13/17 12:52 98.3 56 18 191/93 (125) 95 10/12/17 17:52 21 10/10/17 19:58 Room Air I/O 10/13/17 10/13/17 10/14/17 08:00 16:00 00:00 Output Total 400 ml Balance -400 ml Lab Results Test 10/13/17 06:25 White Blood Count 6.7 TH/MM3 Red Blood Count 3.29 MIL/MM3 Hemoglobin 10.5 GM/DL Hematocrit 31.6 % Mean Corpuscular Volume 96.0 FL Mean Corpuscular Hemoglobin 31.8 PG Mean Corpuscular Hemoglobin Concent 33.1 % Red Cell Distribution Width 13.7 % Platelet Count 116 TH/MM3 Mean Platelet Volume 11.2 FL Blood Urea Nitrogen 9 MG/DL Creatinine 1.14 MG/DL Random Glucose 117 MG/DL Total Protein 5.4 GM/DL Calcium Level 7.3 MG/DL Magnesium Level 1.7 MG/DL Sodium Level 144 MEQ/L Potassium Level 3.3 MEQ/L Chloride Level 115 MEQ/L Carbon Dioxide Level 20.1 MEQ/L Anion Gap 9 MEQ/L Estimat Glomerular Filtration Rate 46 ML/MIN Protein Corrected Calcium 8.2 MG/DL Date/Time Source Procedure Growth Status 10/10/17 12:35 Blood Peripheral Aerobic Blood Culture - Preliminary NO GROWTH IN 3 DAYS Resulted 10/10/17 12:35 Blood Peripheral Anaerobic Blood Culture - Preliminary NO GROWTH IN 3 DAYS Resulted Last Impressions Head CT 10/10/17 1213 Signed Impressions: CONCLUSION: 1. 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 2. Chronic small vessel ischemic change. 3. No acute intracranial abnormality. Chest X-Ray 10/10/17 1213 Signed Impressions: CONCLUSION: No acute cardiopulmonary abnormality is identified. Hip and Pelvis X-Ray 10/10/17 0000 Signed Impressions: CONCLUSION: Intact total hip arthroplasty bilaterally. Abdomen/Pelvis CT 10/10/17 0000 Signed Impressions: CONCLUSION: Nonobstructing renal stones and cholelithiasis. Mental Status Examination Appearance: Disheveled Consciousness: Alert, Vigilant Orientation: Person (Person only) Motor Activity: Other (Motor exam as above) Speech: Unremarkable Language: Other (Terse, angry) Memory: Impaired (Patient uncooperative with formal mental status testing but seems poor) Mood: Angry, Oppositional, Irritable Affect: Other (Restricted) Thought Process & Associations: Tangential Thought Content: Delusional Hallucination Type: None Delusion Type: Paranoid Insight: Poor Judgment: Poor Mental Status Exam Remarks Does not respond directly when asked about SI/HI Assessment & Plan Problem List: (1) Dementia due to Parkinson's disease with behavioral disturbance ICD Codes: G20 - Parkinson's disease; F02.81 - Dementia in other diseases classified elsewhere with behavioral disturbance Assessment & Plan 77-year-old female with psychiatric history as detailed above who is presently admitted to the medical floor for management of nausea/vomiting, RITA and AMS/ failure to thrive. On my examination today, the patient presents as frankly paranoid and hostile. I suspect that she is experiencing an episode of behavioral disturbance/psychosis in the setting of her Parkinson's disease with associated dementia. I have discussed the case with Dr. Plaza, and we have agreed that this behavioral disturbance is likely best managed on the medical psychiatric unit. Seroquel is likely a good choice for management of her behaviors as it is least likely among the antipsychotics save clozapine to exacerbate movement disorders in the setting of Parkinson's disease. However, since this agent is not available in parenteral formulation, if the patient persists in refusing medications, we may need to consider switching to an agent with available IM/IV formulation, such as Zyprexa. I have initiated a Pope act at this point on the basis of food and medication refusal with plans to transfer the patient to the medical psychiatric unit today. Case discussed with Dr. Plaza and RN. Thank you very much for this consultation. Please call or page with questions. J Luis Acuna MD Oct 13, 2017 14:26
[2017-10-13] MEDS ORDERED: cloNIDine HCL 0.2 MG/24 HR PATCH T-DERMAL SCH (15:00)
[2017-10-13] MEDS ORDERED: POTASSIUM CHLORIDE 25 MEQ EFFERVESCENT TAB PO ONE (15:45)
[2017-10-13] MEDS ORDERED: ENALAPRILAT 1.25 MG/ML VIAL IV PUSH PRN (17:45)
== END 2017-10-13 19:24 | DRG 682 ==
LOC: NEPE 11:51 → NEDA 15:47 → OBSVTOIN 15:51 → N05A 21:46
PROVIDERS: ADMIT Hospitalist; ATTEND Hospitalist
DX: N17.9 Acute kidney failure, unspecified (principal); G93.40 Encephalopathy, unspecified; E46 Unspecified protein-calorie malnutrition; E34.0 Carcinoid syndrome; F02.81 Dementia in other diseases classified elsewhere, unspecified severity, with behavioral disturbance; R13.10 Dysphagia, unspecified; G20 Parkinson's disease; Z68.1 Body mass index [BMI] 19.9 or less, adult; M19.90 Unspecified osteoarthritis, unspecified site; F41.9 Anxiety disorder, unspecified; F32.9 Major depressive disorder, single episode, unspecified; E78.5 Hyperlipidemia, unspecified; K21.9 Gastro-esophageal reflux disease without esophagitis; I12.9 Hypertensive chronic kidney disease with stage 1 through stage 4 chronic kidney disease, or unspecified chronic kidney disease; N18.9 Chronic kidney disease, unspecified; E86.0 Dehydration; E55.9 Vitamin D deficiency, unspecified; K58.9 Irritable bowel syndrome, unspecified; R62.7 Adult failure to thrive; R11.2 Nausea with vomiting, unspecified; R26.9 Unspecified abnormalities of gait and mobility; E87.6 Hypokalemia; M25.551 Pain in right hip; E83.51 Hypocalcemia; Z78.1 Physical restraint status; Z85.118 Personal history of other malignant neoplasm of bronchus and lung; Z86.73 Personal history of transient ischemic attack (TIA), and cerebral infarction without residual deficits; Z87.891 Personal history of nicotine dependence; Z88.0 Allergy status to penicillin; Z88.1 Allergy status to other antibiotic agents; Z88.2 Allergy status to sulfonamides; Z91.011 Allergy to milk products; Z91.11 Patient's noncompliance with dietary regimen; Z91.14 Patient's other noncompliance with medication regimen; Z92.21 Personal history of antineoplastic chemotherapy; Z96.643 Presence of artificial hip joint, bilateral
CPT/HCPCS: 70450; 71045; 73521; 74177; 80048; 80053; 81001; 82550; 83036; 83690; 83735; 84100; 84155; 84439; 84443; 84484; 85025; 85027; 85610; 85730; 87040; 93005; 96361; 96374; C9113; G8987-GP; G8988-GP; G8996-GN; G8997-GN; G8998-GN; J0610; J1644; J2765; J3475; J3480; J7030; J7040; Q9967

== ENCOUNTER 2017-10-13 16:09 | Inpatient (IN) | payer MEDICARE, OTHER ==
[~2017-10-13 16:09] MED LIST changes: +CLON.2T T-DERMAL; +NORC5TAB PO; +OXYB5TAB8 PO; -PANT40TA3 PO; +ZOFR4TAB PO
[2017-10-13] MEDS ORDERED: ACETAMINOPHEN 325 MG TAB PO PRN (20:00)
[2017-10-13] MEDS ORDERED: cloNIDine HCL 0.2 MG/24 HR PATCH T-DERMAL SCH (20:00)
[2017-10-13] MEDS ORDERED: ALUMINUM/MAGNESIUM/SIMETH 30 ML CUP PO PRN (20:00)
[2017-10-13] MEDS ORDERED: MAGNESIUM HYDROXIDE SUSP 30 ML CUP PO PRN (20:00)
[2017-10-13] MEDS ORDERED: NICOTINE 21 MG/24 HR PATCH T-DERMAL PRN (20:00)
[2017-10-13] MEDS ORDERED: ONDANSETRON ODT 4 MG TAB PO PRN (20:00)
[2017-10-13] MEDS: CALCIUM/VITAMIN D 250 MG/125 U TAB PO SCH (21:00)
[2017-10-13] MEDS: OXYBUTYNIN CHLORIDE 5 MG TAB PO SCH (21:00)
[2017-10-13] MEDS ORDERED: DOCUSATE SODIUM 100 MG CAP PO SCH (21:00)
[2017-10-13] MEDS: CARBIDOPA/LEVODOPA 25 MG/100 MG TAB PO SCH (22:00)
[2017-10-14 05:18] VITALS: BP 172/88; PULSE 71; RESP 15; TEMP 99.3; O2SAT 97
[2017-10-14] MEDS: CARBIDOPA/LEVODOPA 25 MG/100 MG TAB PO SCH ×3 (05:42→17:33)
[2017-10-14 08:28] LABS: AUTOMATED NEUTROPHIL # 4.9 TH/MM3 (1.8-7.7); BASOPHIL # 0.1 TH/MM3 (0-0.2); EOSINOPHIL # 0.1 TH/MM3 (0-0.4); EOSINOPHIL % 2.1 % (0.0-4.0); HEMATOCRIT 32.2 % (35.0-46.0); HEMOGLOBIN 10.8 GM/DL (11.6-15.3); LYMPH % 15.8 % (9.0-44.0); MEAN CELL VOLUME 93.8 FL (80.0-100.0); MEAN CORPUSCULAR HEMOGLOBIN 31.5 PG (27.0-34.0); MEAN CORPUSCULAR HGB CONC 33.6 % (32.0-36.0); MEAN PLATELET VOLUME 11.1 FL (7.0-11.0); MONO % 6.4 % (0.0-8.0); MONOCYTE # 0.4 TH/MM3 (0-0.9); NEUT % 74.7 % (16.0-70.0); PLATELET COUNT 133 TH/MM3 (150-450); RED BLOOD COUNT 3.43 MIL/MM3 (4.00-5.30); WHITE BLOOD COUNT 6.5 TH/MM3 (4.0-11.0)
[2017-10-14 09:00] LABS: ALKALINE PHOSPHATASE 63 U/L (45-117); AST (GOT) 13 U/L (15-37); BICARBONATE 21.6 MEQ/L (21.0-32.0); BLOOD UREA NITROGEN 13 MG/DL (7-18); CALCIUM 7.6 MG/DL (8.5-10.1); CHLORIDE 113 MEQ/L (98-107); CHOLESTEROL 154 MG/DL (120-200); CREATININE 1.24 MG/DL (0.50-1.00); GLOMERULAR FILTRATION RATE 42 ML/MIN (>89); GLUCOSE,RANDOM 106 MG/DL (74-106); HDL CHOLESTEROL 53.1 MG/DL (40.0-60.0); LDL CHOLESTEROL 84 MG/DL (0-99); SODIUM (NA) 144 MEQ/L (136-145); TOTAL BILIRUBIN ADULT 0.5 MG/DL (0.2-1.0); TOTAL PROTEIN 5.8 GM/DL (6.4-8.2); TRIGLYCERIDES 86 MG/DL (42-150)
[2017-10-14] MEDS: MAGNESIUM OXIDE 400 MG TAB PO SCH (09:17)
[2017-10-14] MEDS: OXYBUTYNIN CHLORIDE 5 MG TAB PO SCH (09:17)
[2017-10-14] MEDS: DULoxetine HCl DR 60 MG CAP PO SCH (09:17)
[2017-10-14] MEDS: CALCIUM/VITAMIN D 250 MG/125 U TAB PO SCH ×2 (09:17→21:32)
[2017-10-14] MEDS: ASPIRIN EC 81 MG TABEC PO SCH (09:17)
[2017-10-14] MEDS: NIFEdipine 30 MG SUSTAINED RELEASE TAB PO SCH (09:17)
[2017-10-14] MEDS: CHOLECALCIFEROL (VIT D3) 5000 UNIT CAP PO SCH (09:17)
[2017-10-14] MEDS: PRAVASTATIN SOD 40 MG TAB PO SCH (09:17)
[2017-10-14] MEDS: THIAMINE HCL 100 MG TAB PO SCH (09:17)
[2017-10-14] MEDS: MEMANTINE HCL 10 MG TAB PO SCH (09:18)
[2017-10-14 10:53] LABS: ALT (GPT) LESS THAN 6 U/L (10-53)
[2017-10-14] MEDS ORDERED: DOCUSATE SODIUM 50 MG/SENNA 8.6 MG TAB PO ONE (14:00)
[2017-10-14] MEDS ORDERED: MAGNESIUM HYDROXIDE SUSP 30 ML CUP PO ONE (14:00)
--- NOTE | 2017-10-14 14:07 | PD.CONS ---
Consult Service Palliative Care Consult Requested By Dr. Plaza Primary Care Physician No Primary Care Physician Reason for Consultation a. To assist with evaluation and management of symptoms including:agitation b. To assist medical decision maker(s) with: better understanding of current medical conditions; weighing benefits/burdens of medical treatment options; making medical treatment decisions. 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 Patient presented to the emergency room on 10/10/2017 for persistent nausea and vomiting. This is associated with weakness. There is also some right hip pain. In the ER: * Temperature is 98.8, pulse 79, respiration 18, blood pressure 168/88, pulse ox is 95% * WBCs 5.2, hemoglobin is 10.8, hematocrit 33.8, platelet is 123 * Sodium is 143, potassium 4.2, chloride is 112, bicarb is 19.5, BUN 21, creatinine is 1.48 * AST is 13, ALT is 10, alk phos is 68 * Troponin is less than 0.02 * Albumin level is 3.3 * PT is 11.1, INR is 1.1, PTT is 21.5 * Pelvic x-ray shows intact total hip arthroplasty bilaterally * Abdominal CT showed nonobstructing renal stones on the right and cholelithiasis. * Head CT is stable nonhemorrhagic infarction involving the right temporal parietal lobe, chronic small vessel ischemic change, no acute intracranial abnormality * Chest x-ray is unremarkable Patient admitted on observation for altered mental status with nausea and vomiting. 10/11/2017-confused complaining of some nausea but has been comfortable. Creatinine trending downwards to 1.39. 10/12/2017= patient needed to be restrained, continued to be confused; reporting that she was eating something that was not prepared for her. She did not believe she is in the hospital. There is concerned by the medical team that patient is dehydrated, but she does not want to drink anything. Is noted that patient has dementia, Parkinson's and failure to thrive. Psychiatry was consulted. 10/13/2017-patient refusing to eat. P Service Department Manager consulted and recommended tube feedings. Psychiatry evaluated patient and patient is transferred to the medical psychiatric unit, to manage behavioral disturbances. Palliative care was consulted to review goals of care with family. 10/14/2017- patient today has eaten and has been much more calm and cooperative, with pt's daughter Lor at bedside. As documented by the nurse patient ate pudding, ate some chicken which she complained of being too dry and requested and received ensure. Patient on my visit was calm and pleasant. She is alert to person, place, but not time. She recognized her daughter Lor at bedside. She does not recall why she came into the hospital. She is able to recall that she has Parkinson's disease. She is able to spell the word world in reverse. The following was reviewed with patient, and patient's daughter Lor. Spoke extensively with both people, that the delirium episodes likely can happen again , secondary to her Parkinson's, and mild dementia. Spoke to them about her nutrition, including peg tube. Reviewed code status. (Advance care planning 18 MIN). Reviewed hospice services. Goals of treatment is as follows. == No Code/ DNR/ DNI == No peg tube. == daughter and pt for the time being declined hospice. 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 Pt previously was on [facility]. == Pt and daughter want to try rehab one more time with the goal of going home. == IF pt does not do well in rehab, they are open to hospice consultation then. I have offered Hospice consultation to find out more information, but daughter will look it up herself. She knows [facility] has a care center in [place]. Function/Cognitive Trajectory 77 years old female with diagnosis of Parkinson's. Per daughter she have some mild memory impariment, and at times needs assitance with adls such as toilentry (comode). She states this is the first time she has been so agitated. Review of Systems ROS Limitations: Clinical Condition Constitutional: COMPLAINS OF: Fatigue Endocrine: DENIES: Abnorml menstrual pattern, Heat/cold intolerance Eyes: DENIES: Diplopia, Eye inflammation Ears, nose, mouth, throat: DENIES: Hearing loss, Vertigo, Nasal discharge Respiratory: DENIES: Cough, Snoring, Wheezing Cardiovascular: DENIES: Palpitations, Syncope, Dyspnea on Exertion Gastrointestinal: DENIES: Abdominal pain, Black stools Genitourinary: DENIES: Abnormal vaginal bleeding, Dysmenorrhea Musculoskeletal: COMPLAINS OF: Joint pain Neurologic: COMPLAINS OF: Abnormal gait (shuffling), Tremor (parkingsons) Psychiatric: COMPLAINS OF: Confusion Past Family Social History Coded Allergies: penicillin G (Verified Allergy, Severe, RASH, 10/10/17) INTERMEDIATE REACTION milk (Verified Allergy, Mild, G I DISTRESS, 10/10/17) Sulfa (Sulfonamide Antibiotics) (Verified Adverse Reaction, Severe, GI DISTRESS, 10/10/17) INTERMEDIATE REACTION erythromycin base (Verified Adverse Reaction, Severe, GI DISTRESS, 10/10/17) INTERMEDIATE REACTION Past Medical History Carcinoid tumor of the lungs Hypertension Parkinson's(diagnosed on 11/22/2015 ) Frequent falls Dementia Gait and balance disorder Pulmonary nodules Past Surgical History Tonsillectomy Right upper lobe and mid lung lobectomy 2011 diagnosed with carcinoid tumors Bilateral salpingo- and right oophorectomy 2010 Colonoscopy Lobectomy right lung in 2009 top and middle Hysterectomy Reported Medications Benadryl Carbidopa levodopa Duloxetine Ferrous sulfate Florastor Amatine Milk of magnesia Neupro [place] Omeprazole Theragran-M Toradol 19 Tylenol Vitamin B complex Current Medications Medications (Trade) Dose Ordered Sig/José Antonio Route Start Time Stop Time Status Last Admin (Tylenol) 650 mg Q4H PRN PO 10/13/17 20:00 (Milk Of Magnesia Liq) 30 ml DAILY PRN PO 10/13/17 20:00 (Mag-Al Plus Susp Liq) 30 ml Q6H PRN PO 10/13/17 20:00 (Habitrol 21 Mg Patch.24 Hr) 1 patch DAILY PRN T-DERMAL 10/13/17 20:00 (Ecotrin Ec) 81 mg DAILY PO 10/14/17 09:00 10/14/17 09:17 (Oscal-D 250-125) 250 mg Q12HR PO 10/13/17 21:00 10/14/17 09:17 (Sinemet 25-100 Mg) 1 tab Q8HR PO 10/13/17 22:00 10/14/17 05:42 (Vitamin D3) 5,000 units DAILY PO 10/14/17 09:00 10/14/17 09:17 (Catapres-Tts 0.2 Mg Patch.7d) 1 patch Q7D T-DERMAL 10/13/17 20:00 10/13/17 20:00 (Colace) 100 mg HS PO 10/13/17 21:00 10/13/17 21:00 (Cymbalta Dr) 60 mg DAILY PO 10/14/17 09:00 10/14/17 09:17 (Mag-Ox) 400 mg DAILY PO 10/14/17 09:00 10/14/17 09:17 (Namenda) 10 mg DAILY PO 10/14/17 09:00 10/14/17 09:18 (Procardia Xl) 30 mg DAILY PO 10/14/17 09:00 10/14/17 09:17 (Ditropan) 5 mg Q12HR PO 10/13/17 21:00 10/14/17 09:17 (Pravachol) 40 mg DAILY PO 10/14/17 09:00 10/14/17 09:17 (Vitamin B1) 100 mg DAILY PO 10/14/17 09:00 10/14/17 09:17 (Zofran Odt) 4 mg Q6HR PRN PO 10/13/17 20:00 (Norma-Colace) 2 tab ONCE ONCE PO 10/14/17 13:30 10/14/17 13:31 UNV (Milk Of Magnesia Liq) 30 ml ONCE ONCE PO 10/14/17 13:30 10/14/17 13:31 UNV (Norma-Colace) 1 tab BID PO 10/14/17 21:00 UNV Family History Ms. Allen parents are both . No known family medical history Substance Use Tobacco: Never smoked Alcohol: Occasional Prescription med abuse: No Illicits: No Psychosocial History Patient is retired patient is has 2 daughters. Pt was an RN. Spiritual/Cultural Factors Orthodox Living Will: Copy in medical record Documented care wishes: "I direct that my health-care providers and others involved in my care provide , withold or withdraw treatment in accordance with the hocie I have makred below : Choice not to Prolong life..." Physical Exam Vital Signs Date Time Temp Pulse Resp B/P (MAP) Pulse Ox O2 Delivery O2 Flow Rate FiO2 10/14/17 05:18 99.3 71 15 172/88 (116) 97 Exam CONSTITUTIONAL/GENERAL: This is an elderly lady, very calm and cooperative SKIN: No jaundice, rashes, or lesions. Ecchymoses on upper extremities. No wounds seen anteriorly. Skin temperature appropriate. Not diaphoretic. HEAD: Atraumatic. Normocephalic. EYES: Pupils equal and round and reactive. Extraocular motions intact. No scleral icterus. No injection or drainage. Fundi not examined. ENT: Hearing grossly normal. Nose without bleeding or purulent drainage. Throat without visible erythema, exudates, masses, or lesions. NECK: Trachea midline. Supple, nontender. No palpable thyroid enlargement or nodularity. CARDIOVASCULAR: Regular rate and rhythm without murmurs, gallops, or rubs. No JVD. Peripheral pulses symmetric. RESPIRATORY/CHEST: Symmetric, unlabored respirations. Clear to auscultation. Breath sounds equal bilaterally. No wheezes, rales, or rhonchi. GASTROINTESTINAL: Abdomen soft, non-tender, nondistended. No hepato-splenomegaly , or palpable masses. No guarding. Bowel sounds present. GENITOURINARY: Without palpable bladder distension. Sherwood catheter in place. MUSCULOSKELETAL: Extremities without clubbing, cyanosis, or edema. No joint tenderness or effusion noted. No calf tenderness. No mottling or clubbing. LYMPHATICS: No palpable cervical or supraclavicular adenopathy. NEUROLOGICAL: Awake and alert. Motor and sensory grossly within normal limits. Follows commands. Poor short term memory. Moves all extremities. PSYCHIATRIC: No obvious anxiety/depression. no apparent hallucinations today, calm. Diagnostic Tests Laboratory Laboratory Tests Test 10/14/17 08:01 White Blood Count 6.5 TH/MM3 (4.0-11.0) Red Blood Count 3.43 MIL/MM3 (4.00-5.30) Hemoglobin 10.8 GM/DL (11.6-15.3) Hematocrit 32.2 % (35.0-46.0) Mean Corpuscular Volume 93.8 FL (80.0-100.0) Mean Corpuscular Hemoglobin 31.5 PG (27.0-34.0) Mean Corpuscular Hemoglobin Concent 33.6 % (32.0-36.0) Red Cell Distribution Width 14.0 % (11.6-17.2) Platelet Count 133 TH/MM3 (150-450) Mean Platelet Volume 11.1 FL (7.0-11.0) Neutrophils (%) (Auto) 74.7 % (16.0-70.0) Lymphocytes (%) (Auto) 15.8 % (9.0-44.0) Monocytes (%) (Auto) 6.4 % (0.0-8.0) Eosinophils (%) (Auto) 2.1 % (0.0-4.0) Basophils (%) (Auto) 1.0 % (0.0-2.0) Neutrophils # (Auto) 4.9 TH/MM3 (1.8-7.7) Lymphocytes # (Auto) 1.0 TH/MM3 (1.0-4.8) Monocytes # (Auto) 0.4 TH/MM3 (0-0.9) Eosinophils # (Auto) 0.1 TH/MM3 (0-0.4) Basophils # (Auto) 0.1 TH/MM3 (0-0.2) CBC Comment DIFF FINAL Differential Comment Blood Urea Nitrogen 13 MG/DL (7-18) Creatinine 1.24 MG/DL (0.50-1.00) Random Glucose 106 MG/DL (74-106) Total Protein 5.8 GM/DL (6.4-8.2) Albumin 3.0 GM/DL (3.4-5.0) Calcium Level 7.6 MG/DL (8.5-10.1) Alkaline Phosphatase 63 U/L (45-117) Aspartate Amino Transf (AST/SGOT) 13 U/L (15-37) Alanine Aminotransferase (ALT/SGPT) LESS THAN 6 U/L (10-53) Total Bilirubin 0.5 MG/DL (0.2-1.0) Sodium Level 144 MEQ/L (136-145) Potassium Level 4.3 MEQ/L (3.5-5.1) Chloride Level 113 MEQ/L (98-107) Carbon Dioxide Level 21.6 MEQ/L (21.0-32.0) Anion Gap 9 MEQ/L (5-15) Estimat Glomerular Filtration Rate 42 ML/MIN (>89) Triglycerides Level 86 MG/DL (42-150) Cholesterol Level 154 MG/DL (120-200) LDL Cholesterol 84 MG/DL (0-99) HDL Cholesterol 53.1 MG/DL (40.0-60.0) Cholesterol/HDL Ratio 2.90 RATIO Result Diagram: 10/14/17 0801 10/14/17 0801 Patient/Family Conference Present at Family Conference: Pt's daughter Lor, and patient. Family Conference Time (mins): 45 Family Conference Location: Bedside Issues Discussed: * Palliative care role, purpose, approach * Additional medical, psychosocial, and spiritual history * Patients general health, functional status, and cognitive changes in the months leading up to the current hospitalization * Patient/family understanding of the current medical problems * Patient/family understanding of prognosis * Patients goals of care as best understood from advance directives and/or conversations and/or values * Current medical treatment options and benefits/burdens of those options * Likely scenarios comparing ongoing aggressive care with a transition to comfort measures only * Questions answered to the best of my ability * Palliative care contact information provided Assessment and Plan Disease Oriented Problem List: (1) Carcinoid tumor of lung (2) Parkinsonism (3) Dementia due to Parkinson's disease with behavioral disturbance (4) Malnutrition Symptom Scale: (1) Agitation (2) Nausea Pertinent Non-Medical Issues Psychosocial: Spiritual:Orthodox [facility] Jordi Call, alternate is Kristine crabtree and Lor doan Ethical issues impacting care:none Important Contacts Lor jaja Clark [phone] (daughter) Jordi Call [phone] (spouse) Kristine Crabtree [phone] (daughter) Prognosis 77-year-old with Parkinson's, dementia with significant behavioral disturbances that prevent her from getting nutrition. Patient at risk for continued functional decline, repeated hospitalization, falls, infection. Would be appropriate for hospice if goals of treatment were comfort oriented. Code Status: No Code Plan == capacity to make medical decisions- tends to fluctuate, but today I feel patient can at the very least participate. I do not think she can make medical decisions on her own currently. == code: DNR. == Health care surrogate: (who is elderly) realistically, daughters should be involve in decision making. == goals of treatment: The following was reviewed with patient, and patient's daughter Lor. Spoke extensively with both people, that the delirium episodes likely can happen again, secondary to her Parkinson's, and mild dementia. Spoke to them about her nutrition, including peg tube. Reviewed code status. ( Advance care planning 18 MIN). Reviewed hospice services. Goals of treatment is as follows. * No Code/ DNR/ DNI * No peg tube. * daughter and pt for the time being declined hospice. 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 Pt previously was on [facility]. * Pt and daughter want to try rehab one more time with the goal of going home. * IF pt does not do well in rehab, they are open to hospice consultation then. I have offered Hospice consultation to find out more information, but daughter will look it up herself. She knows [facility] has a care center in [place]. * Barriers to hospice at this point from daughter perspective is per radha, this is the first time she has ever been this agitated; and also pt currently is getting monthly chemo treatment for slow growing carcinoid tumor. Goals are unlikely to change until another decline in functional status. == Symptom- agitation- multifacotrial likely combination of poor nutrition, renal insufficiences, dementia. == Palliative Care will follow for recommendation of symptom management and review goals of treatment as patient's clinical condition evolves. Daughter asked to speak with clinical social work therapist and I have spoke to clinical social work therapist approximately, daughter would like trial of rehab or placement. Thank you for the opportunity to participate in the care of Ms. Call. Attestation To help prompt me to consider important information that might be impacting today's encounter and assessment, information from prior notes written by myself or my colleagues may have been "brought forward" into today's note. My signature on this note, however, is an attestation that I personally performed the exam, history, and/or decision-making noted today, and, unless otherwise indicated, the interactions with patient, family, and staff as well as the review of records all occurred today. I also attest that the listed assessment and stated plan reflect my best clinical judgment today based on the combination of historical information, prior notes, and today's exam/ interactions. When time spent is documented, it refers only to time spent today by the signer, or if indicated, combined time spent today by collaborating physician/nurse practitioner. Andrzej Smith MD Oct 14, 2017 14:07
[2017-10-14] MEDS ORDERED: SOD PHOSPHATE/SOD BIPHOSPHATE (ADULT) ENEMA 133ML RECTAL ONE (16:00)
--- NOTE | 2017-10-14 16:11 | MB ---
cc: Gwendolyn Easton MD DATE: 10/14/2017 DATE OF : 1940 AGE: [age] years old. REASON FOR CONSULTATION: Parkinson's, question if her medicines need to be adjusted. HISTORY OF PRESENT ILLNESS: A 77-year-old woman with a history of Parkinson's who follows with my partner, Dr. Novak. 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 She has a history of Parkinson's as well as a history of carcinoid tumors as well as dementia. MEDICATIONS: Her normal Sinemet per daughter: She thinks she takes 25/100 t.i.d., but the patient states up to 4 times a day. She is also on baby aspirin, nifedipine, Pravachol, magnesium, vitamin D, Ditropan and Namenda. ALLERGIES: PENICILLIN. MILK. SULFA. AZITHROMYCIN. The patient was found to have also occult urinary tract infection and was placed on some antibiotics, but she is improved now. PHYSICAL EXAMINATION: VITAL SIGNS: Temperature is 99.3, pulse 71, respiratory rate 15, blood pressure 172/88. NEUROLOGICAL EXAMINATION: The patient is awake and alert. She is hypophonic, slightly decreased blink. Pupils reactive. Her face is symmetrical. Otherwise, her speech is normal. Motor-raya, she moves everything equally. Minimal tremor noted at rest, but increased tone at the elbows, as well as at the wrists with cogwheeling noted. DTRs are 1+. Toes withdraws. Gait is withheld. LABORATORY DATA: Reviewed. Her UA really is not that impressive for infection, but a culture was not done. Chemistries showed sodium of 144, creatinine 1.24, GFR 42, albumin 3. B12 in July was 921. CBC: There is no white count elevation, platelets 133,000. IMAGING: CT head stable. Infarct right temporoparietal lobes, chronic. Nothing acute otherwise. ASSESSMENT AND PLAN: A 77-year-old woman with Parkinson's disease who was not taking her medication, was agitated, refused to eat. Recommend restarting her Sinemet 25/100 before breakfast, before lunch, before dinner and at bedtime. If the bedtime dose is not needed, certainly that can be discontinued. Get her out of bed with physical therapy. Continue care per other consultants and adjustment of her Parkinson's medication will be done as an outpatient as needed from here on in. MD JOLLY Levine/HANK , 03:53 PM , 04:10 PM
[2017-10-14] MEDS ORDERED: diphenhydrAMINE HCL 50 MG CAP PO PRN (16:15)
[2017-10-14] MEDS ORDERED: LORazepam 0.5 MG TAB PO PRN (16:15)
[2017-10-14] MEDS ORDERED: ENALAPRILAT 1.25 MG/ML VIAL IV PUSH PRN (16:30)
--- NOTE | 2017-10-14 16:53 | PD.CONS ---
HPI Service [facility] Hospitalists Consult Requested By Primary Care Physician No Primary Care Physician Diagnoses: History of Present Illness 77-year-old patient with a history of Parkinson's, hypertension, hyperlipidemia , dementia who is admitted to the hospital with paranoia, refusing to take medications. Patient has reported poor appetite, some nausea without vomiting. Reports most recent bowel movement was over 4 days ago. The possibility of NG tube for feeding has been discussed with patient and family, and family would like to try conservative measures at this time. CT abdomen on most recent admission positive for moderate stool burden. Review of Systems Except as stated in HPI: all other systems reviewed are Neg Past Family Social History Allergies: Coded Allergies: penicillin G (Verified Allergy, Severe, RASH, 10/10/17) INTERMEDIATE REACTION milk (Verified Allergy, Mild, G I DISTRESS, 10/10/17) Sulfa (Sulfonamide Antibiotics) (Verified Adverse Reaction, Severe, GI DISTRESS, 10/10/17) INTERMEDIATE REACTION erythromycin base (Verified Adverse Reaction, Severe, GI DISTRESS, 10/10/17) INTERMEDIATE REACTION Past Medical History Dementia Chronic dizziness Hypertension Hyperlipidemia History of lung cancer with lobectomy. Patient reports most recent chemotherapy 2 weeks ago Irritable bowel syndrome GERD Parkinson's Urinary incontinence Osteoarthritis Anxiety and depression Psoriasis Past Surgical History Tonsillectomy Bilateral intraocular lens implant cataract extraction History of tubal ligation Hysterectomy section 1 History of bilateral hip replacements History of right lobectomy Active Ordered Medications Current Medications Medications (Trade) Dose Ordered Sig/José Antonio Route Start Time Stop Time Status Last Admin (Tylenol) 650 mg Q4H PRN PO 10/13/17 20:00 (Milk Of Magnesia Liq) 30 ml DAILY PRN PO 10/13/17 20:00 (Mag-Al Plus Susp Liq) 30 ml Q6H PRN PO 10/13/17 20:00 (Habitrol 21 Mg Patch.24 Hr) 1 patch DAILY PRN T-DERMAL 10/13/17 20:00 (Ecotrin Ec) 81 mg DAILY PO 10/14/17 09:00 10/14/17 09:17 (Oscal-D 250-125) 250 mg Q12HR PO 10/13/17 21:00 10/14/17 09:17 (Vitamin D3) 5,000 units DAILY PO 10/14/17 09:00 10/14/17 09:17 (Catapres-Tts 0.2 Mg Patch.7d) 1 patch Q7D T-DERMAL 10/13/17 20:00 10/13/17 20:00 (Cymbalta Dr) 60 mg DAILY PO 10/14/17 09:00 10/14/17 09:17 (Mag-Ox) 400 mg DAILY PO 10/14/17 09:00 10/14/17 09:17 (Namenda) 10 mg DAILY PO 10/14/17 09:00 10/14/17 09:18 (Procardia Xl) 30 mg DAILY PO 10/14/17 09:00 10/14/17 09:17 (Pravachol) 40 mg DAILY PO 10/14/17 09:00 10/14/17 09:17 (Vitamin B1) 100 mg DAILY PO 10/14/17 09:00 10/14/17 09:17 (Zofran Odt) 4 mg Q6HR PRN PO 10/13/17 20:00 (Norma-Colace) 1 tab BID PO 10/14/17 21:00 Potassium Chloride/Dextrose/ Sod Cl 1,000 ml @ 84 mls/hr [id number] IV 10/14/17 16:00 (Sinemet 25-100 Mg) 1 tab Q6HR PO 10/14/17 18:00 (Ativan) 0.5 mg Q12HR PRN PO 10/14/17 16:15 UNV (Benadryl) 50 mg HS PRN PO 10/14/17 16:15 UNV Family History Family history reviewed in chart and patient does have a family history of Parkinson's disease. Social History Patient denies any tobacco, alcohol or illicit drug use. Physical Exam Vital Signs Vital Signs Date Time Temp Pulse Resp B/P (MAP) Pulse Ox O2 Delivery O2 Flow Rate FiO2 10/14/17 05:18 99.3 71 15 172/88 (116) 97 Physical Exam GENERAL: Cachectic 77-year-old female who appears comfortable. SKIN: No rashes, ecchymoses or lesions. Cool and dry. HEAD: Atraumatic. Normocephalic. No temporal or scalp tenderness. EYES: Pupils equal round and reactive. Extraocular motions intact. No scleral icterus. No injection or drainage. ENT: Nose without bleeding, purulent drainage or septal hematoma. Throat without erythema, tonsillar hypertrophy or exudate. Uvula midline. Airway patent. NECK: Trachea midline. No JVD or lymphadenopathy. Supple, nontender, no meningeal signs. CARDIOVASCULAR: Regular rate and rhythm without murmurs, gallops, or rubs. RESPIRATORY: Clear to auscultation. Breath sounds equal bilaterally. No wheezes , rales, or rhonchi. GASTROINTESTINAL: Abdomen soft, non-tender, nondistended. No hepato-splenomegaly , or palpable masses. No guarding. MUSCULOSKELETAL: Extremities without clubbing, cyanosis, or edema. No joint tenderness, effusion, or edema noted. No calf tenderness. Negative Homans sign bilaterally. NEUROLOGICAL: Awake and alert. Cranial nerves II through XII intact. Motor and sensory grossly within normal limits. Five out of 5 muscle strength in all muscle groups. Normal speech. Laboratory Laboratory Tests Test 10/14/17 08:01 White Blood Count 6.5 Red Blood Count 3.43 Hemoglobin 10.8 Hematocrit 32.2 Mean Corpuscular Volume 93.8 Mean Corpuscular Hemoglobin 31.5 Mean Corpuscular Hemoglobin Concent 33.6 Red Cell Distribution Width 14.0 Platelet Count 133 Mean Platelet Volume 11.1 Neutrophils (%) (Auto) 74.7 Lymphocytes (%) (Auto) 15.8 Monocytes (%) (Auto) 6.4 Eosinophils (%) (Auto) 2.1 Basophils (%) (Auto) 1.0 Neutrophils # (Auto) 4.9 Lymphocytes # (Auto) 1.0 Monocytes # (Auto) 0.4 Eosinophils # (Auto) 0.1 Basophils # (Auto) 0.1 CBC Comment DIFF FINAL Differential Comment Blood Urea Nitrogen 13 Creatinine 1.24 Random Glucose 106 Total Protein 5.8 Albumin 3.0 Calcium Level 7.6 Alkaline Phosphatase 63 Aspartate Amino Transf (AST/SGOT) 13 Alanine Aminotransferase (ALT/SGPT) LESS THAN 6 Total Bilirubin 0.5 Sodium Level 144 Potassium Level 4.3 Chloride Level 113 Carbon Dioxide Level 21.6 Anion Gap 9 Estimat Glomerular Filtration Rate 42 Triglycerides Level 86 Cholesterol Level 154 LDL Cholesterol 84 HDL Cholesterol 53.1 Cholesterol/HDL Ratio 2.90 Result Diagram: 10/14/17 0810/14/17 08 Assessment and Plan Assessment and Plan // Paranoia = Management as per psychiatry. //Parkinson's disease = We will continue Sinemet. Due to worsening nature Parkinson's disease, will consult neurology. Appreciate assistance. //Nausea and vomiting //Chronic constipation. //Decreased appetite LFTs, lipase and CT abdomen last admission showed moderate stool burden. No bowel movements during last admission or this admission. = Likely worsened secondary to Ditropan which will be discontinued. Avoid narcotics Laxatives ordered. Monitor. = If nausea and decreased appetite not improved by tomorrow after constipation has resolved, will start appetite stimulant. Discussed with family at bedside. //Renal insufficiency/chronic kidney disease = Continue stable. Start IV fluids. //Hypertension Blood pressure elevated at times. = Blood pressure elevated but acceptable. - clonidine patch, nifedipine. //Overactive bladder. Discontinue Ditropan due to constipation. //DVT prophylaxis. Heparin. Discussed Condition With Patient, nurse, daughter at bedside Robin Cadet MD Oct 14, 2017 16:53
[2017-10-14] MEDS: D5-1/2 NS + KCL 10 MEQ INJ 1,000 ML IV SCH (16:57)
[2017-10-14 16:59] LABS: HEMOGLOBIN A1C 5.2 % (4.3-6.0)
--- NOTE | 2017-10-14 17:14 | HHI.HP ---
Provisional Diagnosis Admission Date Oct 13, 2017 at 19:30 [place]. Dementia with behavioral disturbances Certification of Person's Competence To Provide Express and Informed Consent I have personally examined Dang Call , a person being served at [facility] on, Oct 14, 2017 17:11. Express and informed consent means consent voluntarily given in writing, by a competent person, after sufficient explanation and disclosure of the subject matter involved to enable the person to make a knowing and willful decision without any element of force, fraud, deceit, duress, or other form of constraint or coercion. This person is 18 years of age or older, is not now known to be incompetent to consent to treatment with a guardian advocate, and does not have a health care surrogate or proxy currently making medical treatment decisions. I have found this person to be one of the following: [] Competent to provide express and informed consent, as defined above, for voluntary admission to this facility and is competent to provide express and informed consent for treatment. He/she has the consistent capacity to make well reasoned, willful, and knowing decisions concerning his or her medical or mental health treatment. The person fully and consistently understands the purpose of the admission for examination/placement and is fully capable of personally exercising all rights assured [place]] Incompetent to provide express and informed consent to voluntary admission , and this is incompetent to provide express and informed consent to treatment. The person must be transferred to involuntary status and a petition for a guardian advocate filed with the Circuit Court. [] Refusing to provide express and informed consent to voluntary admission but is competent to provide express and informed consent for treatment. The person must be discharged or transferred to involuntary status. Form shall be completed within 24 hours of a person's arrival at the receiving facility and filed in the clinical record of each person: 1. Admitted on a voluntary basis 2. Permitted to provide express and informed consent to his/her own treatment 3. Allowed to transfer from involuntary to voluntary status 4. Prior to permitting a person to consent to his or her own treatment after having been previously found incompetent to consent to treatment. History of Present Illness Capacity: Lacks Capacity HPI Patient is a 77-year-old woman, domiciled with daughter, with a past psychiatric history of dementia, no previous psychiatric admissions, no previous suicide attempt or self-injurious behavior as per chart with a past medical history significant for Parkinson's disease, history of carcinoid tumors , chronic diarrhea, recent CVA, who was brought in by EMS due to nausea and vomiting along with altered mental status and acute kidney injury was admitted to medical floor for the same and during admission was noted to be aggressive, paranoid and hostile along with poor nutritional intake which patient was put under Pope act for concerns of self-care deficit and was admitted to the inpatient psychiatry for further evaluation and management. Patient was found lying hospital bed with daughter at bedside but interviewed alone. Patient was noted to be alert and oriented only to person, stating her mood has been "fair" denying any recent depressive symptoms aside from decreased appetite and energy but currently stating she is feeling somewhat depressed because she was not feeling well physically. Patient this time denies any suicidal homicidal ideations, denies any perceptual service of delusions. Patient was noted to be asking for more food during interview. Collateral history obtained from the patient's daughter stated that patient was at home when patient's was being followed by a visiting nurse and had noted patient to be acting bizarre which prompted patient to be brought to the hospital for evaluation. She agrees to be patient's healthcare surrogate and guardian advocate during his admission and medications were reviewed with her along with the B/R/A head agreed with treatment plan. Review of Systems Except as stated in HPI: all other systems reviewed are Neg Past Psych History Violence risk - others (6 mos) Elevated due to recent aggressive behavior Violence risk - self (6 mos) Low Substance Abuse History Drugs/Alcohol past 12 months Denies Past Family Social History Coded Allergies: penicillin G (Verified Allergy, Severe, RASH, 10/10/17) INTERMEDIATE REACTION milk (Verified Allergy, Mild, G I DISTRESS, 10/10/17) Sulfa (Sulfonamide Antibiotics) (Verified Adverse Reaction, Severe, GI DISTRESS, 10/10/17) INTERMEDIATE REACTION erythromycin base (Verified Adverse Reaction, Severe, GI DISTRESS, 10/10/17) INTERMEDIATE REACTION Active Scripts Clonidine 168 HR Patch (Cemdatly-Tpx-8 168 HR Patch) 0.2 Mg/24 Hr Patch, 1 PATCH T-DERMAL Q7D for Blood Pressure Management, #2 PATCH Prov:Ethan Plaza DO 10/13/17 Cholecalciferol (Vitamin D3) 5,000 Unit Cap, 5000 UNITS PO DAILY for vitamin for 30 Days, CAP Prov:Robin Cadet MD 08/01/17 Magnesium Oxide (Magnesium Oxide) 400 Mg Tab, 400 MG PO DAILY for electrolyte deficiency for 30 Days, #30 TAB Prov:Robin Cadet MD 08/01/[address] (Aspirin DR) 81 Mg Tabdr, 81 MG PO DAILY for Blood Clot Prevention for 30 Days, #30 TAB Prov:Robin Cadet MD 08/01/17 Nifedipine ER 24 HR (Nifedipine ER 24 HR) 30 Mg Tab, 30 MG PO DAILY for Blood Pressure Management for 30 Days, #30 TAB Prov:Robin Cadet MD 08/01/17 Pravastatin (Pravachol) 40 Mg Tab, 40 MG PO DAILY for Cholesterol Management for 30 Days, #30 TAB Prov:Robin Cadet MD 08/01/17 Thiamine HCl (Gnp Vitamin B-1) 100 Mg Tab, 100 MG PO DAILY for vitamin for 30 Days, #30 TAB Prov:Robin Cadet MD 08/01/17 Calcium/Vitamin D (Oyster Shell 250 mg + Vit D Tb) 250 Mg Calcium (625 Mg)-125 Unit Tablet, 250 MG PO Q12HR for Calcium Supplement for 30 Days, TAB Prov:Robin Cadet MD 08/01/17 Carbidopa-Levodopa (Carbidopa-Levodopa) 25-100 Mg Tab, 1 TAB PO Q8HR, #90 TAB 1 Refill Prov:Deep Dozier MD 04/06/16 Reported Medications Ondansetron (Zofran) 4 Mg Tab, 4 MG PO Q6HR Y for NAUSEA OR VOMITING, TAB 0 Refills 10/10/17 Oxybutynin (Ditropan) 5 Mg Tab, 5 MG PO Q12HR for Urinary Symptom Managemen, # 60 TAB 0 Refills 10/10/17 Memantine (Memantine) 10 Mg Tab, 10 MG PO DAILY for Alzheimer's Dementia, TAB 0 Refills 10/10/17 Duloxetine (Duloxetine ) 60 Mg Capdr, 60 MG PO DAILY, #30 CAP 0 Refills 07/27/17 Docusate Sodium (Docusate Sodium) 100 Mg Cap, 100 MG PO HS for Prevent Constipation, #60 CAP 0 Refills 07/27/17 Discontinued Reported Medications Hydrocodone-Acetaminophen (Burke) 5 Mg-325 Mg Tab, 1 TAB PO Q8HR Y for PAIN, TAB 0 Refills 10/10/17 Discontinued Scripts Pantoprazole (Pantoprazole) 40 Mg Tab, 40 MG PO DAILY, #30 TAB 1 Refill Prov:Deep Dozier MD 04/06/16 Memantine (Memantine) 10 Mg Tab, 10 MG PO BID for Alzheimer's Dementia, #60 TAB 1 Refill Prov:Deep Dozier MD 04/06/16 Current Medications Medications (Trade) Dose Ordered Sig/José Antonio Route Start Time Stop Time Status Last Admin (Tylenol) 650 mg Q4H PRN PO 10/13/17 20:00 (Milk Of Magnesia Liq) 30 ml DAILY PRN PO 10/13/17 20:00 (Mag-Al Plus Susp Liq) 30 ml Q6H PRN PO 10/13/17 20:00 (Habitrol 21 Mg Patch.24 Hr) 1 patch DAILY PRN T-DERMAL 10/13/17 20:00 (Ecotrin Ec) 81 mg DAILY PO 10/14/17 09:00 10/14/17 09:17 (Oscal-D 250-125) 250 mg Q12HR PO 10/13/17 21:00 10/14/17 09:17 (Vitamin D3) 5,000 units DAILY PO 10/14/17 09:00 10/14/17 09:17 (Catapres-Tts 0.2 Mg Patch.7d) 1 patch Q7D T-DERMAL 10/13/17 20:00 10/13/17 20:00 (Cymbalta Dr) 60 mg DAILY PO 10/14/17 09:00 10/14/17 09:17 (Mag-Ox) 400 mg DAILY PO 10/14/17 09:00 10/14/17 09:17 (Namenda) 10 mg DAILY PO 10/14/17 09:00 10/14/17 09:18 (Procardia Xl) 30 mg DAILY PO 10/14/17 09:00 10/14/17 09:17 (Pravachol) 40 mg DAILY PO 10/14/17 09:00 10/14/17 09:17 (Vitamin B1) 100 mg DAILY PO 10/14/17 09:00 10/14/17 09:17 (Zofran Odt) 4 mg Q6HR PRN PO 10/13/17 20:00 (Norma-Colace) 1 tab BID PO 10/14/17 21:00 Potassium Chloride/Dextrose/ Sod Cl 1,000 ml @ 84 mls/hr [id number] IV 10/14/17 16:00 10/14/17 16:57 (Sinemet 25-100 Mg) 1 tab Q6HR PO 10/14/17 18:00 (Ativan) 0.5 mg Q12HR PRN PO 10/14/17 16:15 (Benadryl) 50 mg HS PRN PO 10/14/17 16:15 (Vasotec Inj) 1.25 mg Q6H PRN IV PUSH 10/14/17 16:30 (Heparin Inj) 5,000 units Q12HR SQ 10/14/17 21:00 Social History domiciled with daughter and but previously living it nursing facility. Patient's Strengths (min. 2) Verbal and communicative Physical Exam Patient not noted to be in acute distress, no gross motor abnormalities, no signs of tremor or EPS. No psychomotor agitation or retardation. Vital Signs Vital Signs Date Time Temp Pulse Resp B/P (MAP) Pulse Ox O2 Delivery O2 Flow Rate FiO2 10/14/17 05:18 99.3 71 15 172/88 (116) 97 Lab Results Labs reviewed Test 10/14/17 08:01 White Blood Count 6.5 TH/MM3 Red Blood Count 3.43 MIL/MM3 Hemoglobin 10.8 GM/DL Hematocrit 32.2 % Mean Corpuscular Volume 93.8 FL Mean Corpuscular Hemoglobin 31.5 PG Mean Corpuscular Hemoglobin Concent 33.6 % Red Cell Distribution Width 14.0 % Platelet Count 133 TH/MM3 Mean Platelet Volume 11.1 FL Neutrophils (%) (Auto) 74.7 % Lymphocytes (%) (Auto) 15.8 % Monocytes (%) (Auto) 6.4 % Eosinophils (%) (Auto) 2.1 % Basophils (%) (Auto) 1.0 % Neutrophils # (Auto) 4.9 TH/MM3 Lymphocytes # (Auto) 1.0 TH/MM3 Monocytes # (Auto) 0.4 TH/MM3 Eosinophils # (Auto) 0.1 TH/MM3 Basophils # (Auto) 0.1 TH/MM3 CBC Comment DIFF FINAL Differential Comment Blood Urea Nitrogen 13 MG/DL Creatinine 1.24 MG/DL Random Glucose 106 MG/DL Total Protein 5.8 GM/DL Albumin 3.0 GM/DL Calcium Level 7.6 MG/DL Alkaline Phosphatase 63 U/L Aspartate Amino Transf (AST/SGOT) 13 U/L Alanine Aminotransferase (ALT/SGPT) LESS THAN 6 U/L Total Bilirubin 0.5 MG/DL Sodium Level 144 MEQ/L Potassium Level 4.3 MEQ/L Chloride Level 113 MEQ/L Carbon Dioxide Level 21.6 MEQ/L Anion Gap 9 MEQ/L Estimat Glomerular Filtration Rate 42 ML/MIN Triglycerides Level 86 MG/DL Cholesterol Level 154 MG/DL LDL Cholesterol 84 MG/DL HDL Cholesterol 53.1 MG/DL Cholesterol/HDL Ratio 2.90 RATIO Mental Status Examination Appearance: Appropriate Consciousness: Alert Orientation: Person Speech: Other (Low volume) Language: Adequate Fund of Knowledge: Inadequate Attention and Concentration: Easily Distracted Memory: Impaired Mood: Other ("Fine") Affect: Blunt Thought Process & Associations: Other ([place]) Thought Content: Other Hallucination Type: None Delusion Type: None Suicidal Ideation: No Suicidal Plan: No Suicidal Intention: No Homicidal Ideation: No Homicidal Plan: No Homicidal Intention: No Insight: Poor Judgment: Poor Assessment & Plan Problem List: (1) Dementia due to Parkinson's disease with behavioral disturbance ICD Codes: G20 - Parkinson's disease; F02.81 - Dementia in other diseases classified elsewhere with behavioral disturbance Assessment & Plan Estimated LOS: 7-10 days. Patient is a 77-year-old woman who carries a diagnosis of dementia, recently admitted to the medical service due to altered mental status and was found to have agitation, not eating or drinking during admission which patient was admitted to the inpatient psychiatry for further evaluation and management. Patient this time not noted to have any agitation since transfer, has been endorsing having an appetite increase nutritional intake. Will consult dietitian for poor p.o. intake recently. We will continue patient on duloxetine 60 mg p.o. daily for depression. We will defer from starting quetiapine at this time. We will continue to monitor mood and behavior. Continue recommendations as per primary medical team,hospice and neurology consult input. Petition for involuntary hospitalization started, second opinion requested. Discussion with patient's daughter who is her power of tax attorney and will serve as health care surrogate and guardian advocate during his admission. Discharge planning in progress. Discharge Planning To be determined. Request HC Surrog/Guard Advoc?: Yes Rio Falcon MD Oct 14, 2017 17:14
[2017-10-14 18:01] VITALS: BP 121/64; PULSE 74; RESP 15; TEMP 97.8; O2SAT 97
[2017-10-14] MEDS: DOCUSATE SODIUM 50 MG/SENNA 8.6 MG TAB PO SCH (21:32)
[2017-10-14] MEDS: HEPARIN SODIUM - SQ 10,000 UNITS/ML VIAL SQ SCH (21:33)
[2017-10-15] MEDS: CARBIDOPA/LEVODOPA 25 MG/100 MG TAB PO SCH ×4 (00:24→17:42)
[2017-10-15] MEDS: D5-1/2 NS + KCL 10 MEQ INJ 1,000 ML IV SCH ×2 (04:25→15:50)
[2017-10-15 05:34] VITALS: BP 167/98; PULSE 92; RESP 15; TEMP 99.4
[2017-10-15] MEDS: MAGNESIUM OXIDE 400 MG TAB PO SCH (09:00)
[2017-10-15] MEDS: CALCIUM/VITAMIN D 250 MG/125 U TAB PO SCH ×2 (09:00→21:00)
[2017-10-15] MEDS: DOCUSATE SODIUM 50 MG/SENNA 8.6 MG TAB PO SCH ×2 (09:00→21:00)
[2017-10-15] MEDS: THIAMINE HCL 100 MG TAB PO SCH (09:00)
[2017-10-15] MEDS: ASPIRIN EC 81 MG TABEC PO SCH (09:00)
[2017-10-15] MEDS: PRAVASTATIN SOD 40 MG TAB PO SCH (09:00)
[2017-10-15] MEDS: HEPARIN SODIUM - SQ 10,000 UNITS/ML VIAL SQ SCH ×2 (09:00→21:00)
[2017-10-15] MEDS: DULoxetine HCl DR 60 MG CAP PO SCH (09:00)
[2017-10-15] MEDS: MEMANTINE HCL 10 MG TAB PO SCH (09:21)
[2017-10-15] MEDS: NIFEdipine 30 MG SUSTAINED RELEASE TAB PO SCH (09:21)
[2017-10-15] MEDS: CHOLECALCIFEROL (VIT D3) 5000 UNIT CAP PO SCH (09:21)
--- NOTE | 2017-10-15 10:20 | PD.PSY.CON ---
Provisional Diagnosis Admission Date Oct 13, 2017 at 19:30 [place]. Dementia with behavioral disturbances History of Present Illness Service Psychiatry Consult Requested By Dr. Falcon Reason for Consult Second opinion petition supporting Pope act Primary Care Physician No Primary Care Physician HPI Patient is a 77-year-old woman, domiciled with daughter, with a past psychiatric history of dementia, no previous psychiatric admissions, no previous suicide attempt or self-injurious behavior as per chart with a past medical history significant for Parkinson's disease, history of carcinoid tumors , chronic diarrhea, recent CVA, who was brought in by EMS due to nausea and vomiting along with altered mental status and acute kidney injury was admitted to medical floor for the same and during admission was noted to be aggressive, paranoid and hostile along with poor nutritional intake which patient was put under Pope act for concerns of self-care deficit and was admitted to the inpatient psychiatry for further evaluation and management. Patient was found lying hospital bed with daughter at bedside but interviewed alone. Patient was noted to be alert and oriented only to person, stating her mood has been "fair" denying any recent depressive symptoms aside from decreased appetite and energy but currently stating she is feeling somewhat depressed because she was not feeling well physically. Patient this time denies any suicidal homicidal ideations, denies any perceptual service of delusions. Patient was noted to be asking for more food during interview. Collateral history obtained from the patient's daughter stated that patient was at home when patient's was being followed by a visiting nurse and had noted patient to be acting bizarre which prompted patient to be brought to the hospital for evaluation. She agrees to be patient's healthcare surrogate and guardian advocate during his admission and medications were reviewed with her along with the B/R/A head agreed with treatment plan. 10/15/2017 Above note dictated by Dr. Falcon reviewed and agreed with. Dr. Falcon assigned first opinion petition supporting Pope act. Patient seen by me in her room she is drowsy and napping but arousable to confused and disoriented. The low significant behavioral problems. I agree with Dr. Falcon patient meets criteria for involuntary psychiatric hospitalization under the Pope act thus I will cosign second opinion petition supporting Pope act Past Family Social History Coded Allergies: penicillin G (Verified Allergy, Severe, RASH, 10/10/17) INTERMEDIATE REACTION milk (Verified Allergy, Mild, G I DISTRESS, 10/10/17) Sulfa (Sulfonamide Antibiotics) (Verified Adverse Reaction, Severe, GI DISTRESS, 10/10/17) INTERMEDIATE REACTION erythromycin base (Verified Adverse Reaction, Severe, GI DISTRESS, 10/10/17) INTERMEDIATE REACTION Active Scripts Clonidine 168 HR Patch ([id number] 168 HR Patch) 0.2 Mg/24 Hr Patch, 1 PATCH T-DERMAL Q7D for Blood Pressure Management, #2 PATCH Prov:Ethan Plaza DO 10/13/17 Cholecalciferol (Vitamin D3) 5,000 Unit Cap, 5000 UNITS PO DAILY for vitamin for 30 Days, CAP Prov:Robin Cadet MD 08/01/17 Magnesium Oxide (Magnesium Oxide) 400 Mg Tab, 400 MG PO DAILY for electrolyte deficiency for 30 Days, #30 TAB Prov:Robin Cadet MD 08/01/[address] (Aspirin DR) 81 Mg Tabdr, 81 MG PO DAILY for Blood Clot Prevention for 30 Days, #30 TAB Prov:Robin Cadet MD 08/01/17 Nifedipine ER 24 HR (Nifedipine ER 24 HR) 30 Mg Tab, 30 MG PO DAILY for Blood Pressure Management for 30 Days, #30 TAB Prov:Robin Cadet MD 08/01/17 Pravastatin (Pravachol) 40 Mg Tab, 40 MG PO DAILY for Cholesterol Management for 30 Days, #30 TAB Prov:Robin Cadet MD 08/01/17 Thiamine HCl (Gnp Vitamin B-1) 100 Mg Tab, 100 MG PO DAILY for vitamin for 30 Days, #30 TAB Prov:Robin Cadet MD 08/01/17 Calcium/Vitamin D (Oyster Shell 250 mg + Vit D Tb) 250 Mg Calcium (625 Mg)-125 Unit Tablet, 250 MG PO Q12HR for Calcium Supplement for 30 Days, TAB Prov:Robin Cadet MD 08/01/17 Carbidopa-Levodopa (Carbidopa-Levodopa) 25-100 Mg Tab, 1 TAB PO Q8HR, #90 TAB 1 Refill Prov:Deep Dozier MD 04/06/16 Reported Medications Ondansetron (Zofran) 4 Mg Tab, 4 MG PO Q6HR Y for NAUSEA OR VOMITING, TAB 0 Refills 10/10/17 Oxybutynin (Ditropan) 5 Mg Tab, 5 MG PO Q12HR for Urinary Symptom Managemen, # 60 TAB 0 Refills 10/10/17 Memantine (Memantine) 10 Mg Tab, 10 MG PO DAILY for Alzheimer's Dementia, TAB 0 Refills 10/10/[address] (Duloxetine DR) 60 Mg Capdr, 60 MG PO DAILY, #30 CAP 0 Refills 07/27/17 Docusate Sodium (Docusate Sodium) 100 Mg Cap, 100 MG PO HS for Prevent Constipation, #60 CAP 0 Refills 07/27/17 Discontinued Reported Medications Hydrocodone-Acetaminophen ([place]) 5 Mg-325 Mg Tab, 1 TAB PO Q8HR Y for PAIN, TAB 0 Refills 10/10/17 Discontinued Scripts Pantoprazole (Pantoprazole) 40 Mg Tab, 40 MG PO DAILY, #30 TAB 1 Refill Prov:Deep Dozier MD 04/06/16 Memantine (Memantine) 10 Mg Tab, 10 MG PO BID for Alzheimer's Dementia, #60 TAB 1 Refill Prov:Deep Dozier MD 04/06/16 Current Medications Medications (Trade) Dose Ordered Sig/José Antonio Route Start Time Stop Time Status Last Admin (Tylenol) 650 mg Q4H PRN PO 10/13/17 20:00 (Milk Of Magnesia Liq) 30 ml DAILY PRN PO 10/13/17 20:00 (Mag-Al Plus Susp Liq) 30 ml Q6H PRN PO 10/13/17 20:00 (Habitrol 21 Mg Patch.24 Hr) 1 patch DAILY PRN T-DERMAL 10/13/17 20:00 (Ecotrin Ec) 81 mg DAILY PO 10/14/17 09:00 10/15/17 09:00 (Oscal-D 250-125) 250 mg Q12HR PO 10/13/17 21:00 10/15/17 09:00 (Vitamin D3) 5,000 units DAILY PO 10/14/17 09:00 10/15/17 09:21 (Catapres-Tts 0.2 Mg Patch.7d) 1 patch Q7D T-DERMAL 10/13/17 20:00 10/13/17 20:00 (Cymbalta Dr) 60 mg DAILY PO 10/14/17 09:00 10/15/17 09:00 (Mag-Ox) 400 mg DAILY PO 10/14/17 09:00 10/15/17 09:00 (Namenda) 10 mg DAILY PO 10/14/17 09:00 10/15/17 09:21 (Procardia Xl) 30 mg DAILY PO 10/14/17 09:00 10/15/17 09:21 (Pravachol) 40 mg DAILY PO 10/14/17 09:00 10/15/17 09:00 (Vitamin B1) 100 mg DAILY PO 10/14/17 09:00 10/15/17 09:00 (Zofran Odt) 4 mg Q6HR PRN PO 10/13/17 20:00 (Norma-Colace) 1 tab BID PO 10/14/17 21:00 10/15/17 09:00 Potassium Chloride/Dextrose/ Sod Cl 1,000 ml @ 84 mls/hr [id number] IV 10/14/17 16:00 10/15/17 04:25 (Sinemet 25-100 Mg) 1 tab Q6HR PO 10/14/17 18:00 10/15/17 06:08 (Ativan) 0.5 mg Q12HR PRN PO 10/14/17 16:15 (Benadryl) 50 mg HS PRN PO 10/14/17 16:15 (Vasotec Inj) 1.25 mg Q6H PRN IV PUSH 10/14/17 16:30 (Heparin Inj) 5,000 units Q12HR SQ 10/14/17 21:00 10/15/17 09:00 Patient's Strengths (min. 2) Verbal and communicative Physical Exam Vital Signs Vital Signs Date Time Temp Pulse Resp B/P (MAP) Pulse Ox O2 Delivery O2 Flow Rate FiO2 10/15/17 05:34 99.4 92 15 167/98 (121) 10/14/17 18:01 97 I/O 10/15/17 10/15/17 10/16/17 08:00 16:00 00:00 Output Total 700 ml Balance -700 ml Mental Status Examination Appearance: Appropriate Consciousness: Alert Orientation: Person Speech: Other (Low volume) Language: Adequate Fund of Knowledge: Inadequate Attention and Concentration: Easily Distracted Memory: Impaired Mood: Other ("Fine") Affect: Blunt Thought Process & Associations: Other ([place]) Thought Content: Other Hallucination Type: None Delusion Type: None Suicidal Ideation: No Suicidal Plan: No Suicidal Intention: No Homicidal Ideation: No Homicidal Plan: No Homicidal Intention: No Insight: Poor Judgment: Poor Assessment & Plan Problem List: (1) Dementia due to Parkinson's disease with behavioral disturbance ICD Codes: G20 - Parkinson's disease; F02.81 - Dementia in other diseases classified elsewhere with behavioral disturbance Assessment & Plan Estimated LOS: days Request HC Surrog/Guard Advoc?: Yes Jordi Meng MD Oct 15, 2017 10:20
--- NOTE | 2017-10-15 14:12 | HHI.PR ---
Subjective Remarks Follow-up for constipation, decreased oral intake, dementia. The patient reports continued constipation. She states she needs to move her bowels however she has been unable to do so. Nursing staff reports a very small hard BM this morning. Patient reports continued decreased appetite which she attributes to being constipated. She reports occasional nausea but no vomiting. Denies fevers or chills. She states her lower abdomen is "just sore ". Denies any urinary complaints. Denies any other medical complaints at this time. Objective Vitals Vital Signs Date Time Temp Pulse Resp B/P (MAP) Pulse Ox O2 Delivery O2 Flow Rate FiO2 10/15/17 05:34 99.4 92 15 167/98 (121) 10/14/17 18:01 97.8 74 15 121/64 (83) 97 I/O 10/14/17 10/14/17 10/14/17 10/15/17 10/15/17 10/15/17 06:59 14:59 22:59 06:59 14:59 22:59 Intake Total 360 ml 180 ml 120 ml Output Total 700 ml Balance 360 ml -520 ml 120 ml Intake Oral 360 ml 180 ml 120 ml Output Urine Total 700 ml # Voids 1 Result Diagram: 10/14/17 0801 10/14/17 0801 Objective Remarks GENERAL: Thin elderly female patient in NAD. SKIN: Warm and dry. No rash. HEENT: Normocephalic. Atraumatic. Pupils equal and round. Mucous membranes pink and moist. CARDIOVASCULAR: Regular rate and rhythm. No murmur appreciated. RESPIRATORY: No accessory muscle use. Clear to auscultation. Breath sounds equal bilaterally. GASTROINTESTINAL: Abdomen mildly distended with mild diffuse lower abdominal tenderness to palpation. Normoactive bowel sounds x4. MUSCULOSKELETAL: No obvious deformities. Extremities without clubbing, cyanosis , or edema. NEUROLOGICAL: Awake and alert. No obvious cranial nerve deficits. Motor grossly within normal limits. Moving all extremities spontaneously. Normal speech. PSYCHIATRIC: insight and judgment limited Medications and IVs Current Medications Medications (Trade) Dose Ordered Sig/José Antonio Route Start Time Stop Time Status Last Admin (Tylenol) 650 mg Q4H PRN PO 10/13/17 20:00 (Milk Of Magnesia Liq) 30 ml DAILY PRN PO 10/13/17 20:00 (Mag-Al Plus Susp Liq) 30 ml Q6H PRN PO 10/13/17 20:00 (Habitrol 21 Mg Patch.24 Hr) 1 patch DAILY PRN T-DERMAL 10/13/17 20:00 (Ecotrin Ec) 81 mg DAILY PO 10/14/17 09:00 10/15/17 09:00 (Oscal-D 250-125) 250 mg Q12HR PO 10/13/17 21:00 10/15/17 09:00 (Vitamin D3) 5,000 units DAILY PO 10/14/17 09:00 10/15/17 09:21 (Catapres-Tts 0.2 Mg Patch.7d) 1 patch Q7D T-DERMAL 10/13/17 20:00 10/13/17 20:00 (Cymbalta Dr) 60 mg DAILY PO 10/14/17 09:00 10/15/17 09:00 (Mag-Ox) 400 mg DAILY PO 10/14/17 09:00 10/15/17 09:00 (Namenda) 10 mg DAILY PO 10/14/17 09:00 10/15/17 09:21 (Procardia Xl) 30 mg DAILY PO 10/14/17 09:00 10/15/17 09:21 (Pravachol) 40 mg DAILY PO 10/14/17 09:00 10/15/17 09:00 (Vitamin B1) 100 mg DAILY PO 10/14/17 09:00 10/15/17 09:00 (Zofran Odt) 4 mg Q6HR PRN PO 10/13/17 20:00 (Norma-Colace) 1 tab BID PO 10/14/17 21:00 10/15/17 09:00 Potassium Chloride/Dextrose/ Sod Cl 1,000 ml @ 84 mls/hr [id number] IV 10/14/17 16:00 10/15/17 04:25 (Sinemet 25-100 Mg) 1 tab Q6HR PO 10/14/17 18:00 10/15/17 13:13 (Ativan) 0.5 mg Q12HR PRN PO 10/14/17 16:15 (Benadryl) 50 mg HS PRN PO 10/14/17 16:15 (Vasotec Inj) 1.25 mg Q6H PRN IV PUSH 10/14/17 16:30 (Heparin Inj) 5,000 units Q12HR SQ 10/14/17 21:00 10/15/17 09:00 A/P Assessment and Plan 77-year-old female with: Paranoia: acute -Continue management as per psychiatry. Parkinson's disease: acute on chronic -continue Sinemet. -Consulted neurology due to worsening Parkinson's disease, appreciate assistance. -Continue PT -Palliative care following, appreciate assistance Constipation, Nausea/Vomiting, Decreased Appetite: suspect multifactorial with acute constipation in combination with advanced parkinson's/dementia -Checked LFTs, lipase and CT abdomen on last admission, showed moderate stool burden. -No bowel movements during last admission or this admission. -Likely worsened secondary to Ditropan which was discontinued. -Avoid narcotics -Continue bowel regimen -Still no relief today, ordered Fleet enema x1 now -If nausea and decreased appetite not improved after constipation has resolved, will start appetite stimulant. Dr. Cadet previously discussed with family CKD stage III: chronic. -Appears close to baseline however with recent poor oral intake, patient at risk for dehydration, will start maintenance IVF hydration -monitor BMP Hypertension: Blood pressure elevated at times. -Blood pressure elevated but acceptable. -continue clonidine patch, nifedipine. Overactive bladder. -Discontinue Ditropan due to constipation. -monitor urine output DVT prophylaxis. Heparin sq Belle Lizarraga PA-C Oct 15, 2017 2:12 pm
[2017-10-15] MEDS ORDERED: SOD PHOSPHATE/SOD BIPHOSPHATE (ADULT) ENEMA 133ML RECTAL ONE (14:15)
--- NOTE | 2017-10-15 15:08 | HHI.PYPN ---
Subjective Remarks Patient seen for follow, chart reviewed. Discussion nursing staff reported the patient refused medications earlier this morning but then agreed to take them later. Patient was found sitting in hospital bed with family at bedside but interviewed alone along with nurse. Patient states that she slept well, states her appetite has been okay, eating and drinking well. Patient reports having some constipation but is currently on regimen to help with bowel movement which she is hopeful for. Patient denies any depressive manic or psychotic symptoms at this time, continues to be alert and oriented 1. Review of Systems Except as stated in HPI: all other systems reviewed are Neg Mental Status Examination Appearance: Appropriate Consciousness: Alert Orientation: Person Speech: Other (Low volume) Language: Adequate Fund of Knowledge: Inadequate Attention and Concentration: Easily Distracted Memory: Impaired Mood: Other ("Fine") Affect: Blunt Thought Process & Associations: Other ([place]) Thought Content: Other Hallucination Type: None Delusion Type: None Suicidal Ideation: No Suicidal Plan: No Suicidal Intention: No Homicidal Ideation: No Homicidal Plan: No Homicidal Intention: No Insight: Poor Judgment: Poor Results Vitals/IOs Vital Signs Date Time Temp Pulse Resp B/P (MAP) Pulse Ox O2 Delivery O2 Flow Rate FiO2 10/15/17 05:34 99.4 92 15 167/98 (121) 10/14/17 18:01 97 Intake and Output 10/15/17 10/15/17 10/16/17 08:00 16:00 00:00 Intake Total 120 ml Output Total 700 ml Balance -700 ml 120 ml Assessment & Plan Problem List: (1) Dementia due to Parkinson's disease with behavioral disturbance ICD Codes: G20 - Parkinson's disease; F02.81 - Dementia in other diseases classified elsewhere with behavioral disturbance Assessment & Plan Patient this time continue with neurocognitive deficits secondary to dementia. Patient has had no behavioral disturbances since admission, has become cooperative with treatment, noted to have improved appetite. We will continue current treatment. Continue monitor mood and behavior. We will continue recommendations as per prior medical team. Discharge planning in progress. Justification for Cont. Inpt. At risk of further decompensation at lower level of care. Discharge Planning Patient possibly referred to a nursing facility. Request HC Surrog/Guard Advoc?: Yes Rio Falcon MD Oct 15, 2017 15:08
--- NOTE | 2017-10-15 16:49 | HHI.HCPN ---
Reason for visit a. To assist with evaluation and management of symptoms including:agitation b. To assist medical decision maker(s) with: better understanding of current medical conditions; weighing benefits/burdens of medical treatment options; making medical treatment decisions. Subjective/Interval History Patient on my visit is eating, she is calm. She remembers me, but have difficulty remember the date. She denies nausea and vomiting/ and pain. Family/friend interactions Spoke with pt's daughter Lor, goals of care remains the same. She will sign community DNR as health care surrogate with mother. Advance Directives Living Will: Copy in medical record Advance Directive Specifics Documented care wishes: "I direct that my health-care providers and others involved in my care provide , withold or withdraw treatment in accordance with the hocie I have makred below : Choice not to Prolong life... Objective Vital Signs Date Time Temp Pulse Resp B/P (MAP) Pulse Ox O2 Delivery O2 Flow Rate FiO2 10/15/17 05:34 99.4 92 15 167/98 (121) 10/14/17 18:01 97.8 74 15 121/64 (83) 97 Intake & Output 10/15/17 10/15/17 07:00 19:00 Intake Total 180 ml 120 ml Output Total 700 ml Balance -520 ml 120 ml Intake Oral 180 ml 120 ml Output Urine Total 700 ml Physical Exam CONSTITUTIONAL/GENERAL: This is an elderly lady, calm and cooperative SKIN: No jaundice, rashes, or lesions. Ecchymoses on upper extremities. No wounds seen anteriorly. Skin temperature appropriate. Not diaphoretic. HEAD: Atraumatic. Normocephalic. EYES: Pupils equal and round and reactive. Extraocular motions intact. No scleral icterus. No injection or drainage. Fundi not examined. ENT: Hearing grossly normal. Nose without bleeding or purulent drainage. Throat without visible erythema, exudates, masses, or lesions. NECK: Trachea midline. Supple, nontender. No palpable thyroid enlargement or nodularity. CARDIOVASCULAR: Regular rate and rhythm without murmurs, gallops, or rubs. No JVD. Peripheral pulses symmetric. RESPIRATORY/CHEST: Symmetric, unlabored respirations. Clear to auscultation. Breath sounds equal bilaterally. No wheezes, rales, or rhonchi. GASTROINTESTINAL: Abdomen soft, non-tender, nondistended. No hepato-splenomegaly , or palpable masses. No guarding. Bowel sounds present. GENITOURINARY: Without palpable bladder distension. Sherwood catheter in place. MUSCULOSKELETAL: Extremities without clubbing, cyanosis, or edema. No joint tenderness or effusion noted. No calf tenderness. No mottling or clubbing. LYMPHATICS: No palpable cervical or supraclavicular adenopathy. NEUROLOGICAL: Awake and alert. Motor and sensory grossly within normal limits. Follows commands. Poor short term memory. Moves all extremities. PSYCHIATRIC: No obvious anxiety/depression. no apparent hallucinations today, calm. Diagnostic Tests Laboratory Laboratory Tests Test 10/14/17 08:01 White Blood Count 6.5 TH/MM3 (4.0-11.0) Red Blood Count 3.43 MIL/MM3 (4.00-5.30) Hemoglobin 10.8 GM/DL (11.6-15.3) Hematocrit 32.2 % (35.0-46.0) Mean Corpuscular Volume 93.8 FL (80.0-100.0) Mean Corpuscular Hemoglobin 31.5 PG (27.0-34.0) Mean Corpuscular Hemoglobin Concent 33.6 % (32.0-36.0) Red Cell Distribution Width 14.0 % (11.6-17.2) Platelet Count 133 TH/MM3 (150-450) Mean Platelet Volume 11.1 FL (7.0-11.0) Neutrophils (%) (Auto) 74.7 % (16.0-70.0) Lymphocytes (%) (Auto) 15.8 % (9.0-44.0) Monocytes (%) (Auto) 6.4 % (0.0-8.0) Eosinophils (%) (Auto) 2.1 % (0.0-4.0) Basophils (%) (Auto) 1.0 % (0.0-2.0) Neutrophils # (Auto) 4.9 TH/MM3 (1.8-7.7) Lymphocytes # (Auto) 1.0 TH/MM3 (1.0-4.8) Monocytes # (Auto) 0.4 TH/MM3 (0-0.9) Eosinophils # (Auto) 0.1 TH/MM3 (0-0.4) Basophils # (Auto) 0.1 TH/MM3 (0-0.2) CBC Comment DIFF FINAL Differential Comment Blood Urea Nitrogen 13 MG/DL (7-18) Creatinine 1.24 MG/DL (0.50-1.00) Random Glucose 106 MG/DL (74-106) Total Protein 5.8 GM/DL (6.4-8.2) Albumin 3.0 GM/DL (3.4-5.0) Calcium Level 7.6 MG/DL (8.5-10.1) Alkaline Phosphatase 63 U/L (45-117) Aspartate Amino Transf (AST/SGOT) 13 U/L (15-37) Alanine Aminotransferase (ALT/SGPT) LESS THAN 6 U/L (10-53) Total Bilirubin 0.5 MG/DL (0.2-1.0) Sodium Level 144 MEQ/L (136-145) Potassium Level 4.3 MEQ/L (3.5-5.1) Chloride Level 113 MEQ/L (98-107) Carbon Dioxide Level 21.6 MEQ/L (21.0-32.0) Anion Gap 9 MEQ/L (5-15) Estimat Glomerular Filtration Rate 42 ML/MIN (>89) Hemoglobin A1c 5.2 % (4.3-6.0) Triglycerides Level 86 MG/DL (42-150) Cholesterol Level 154 MG/DL (120-200) LDL Cholesterol 84 MG/DL (0-99) HDL Cholesterol 53.1 MG/DL (40.0-60.0) Cholesterol/HDL Ratio 2.90 RATIO Result Diagram: 10/14/17 0801 10/14/17 0801 Assessment and Plan Disease Oriented Problem List: (1) Carcinoid tumor of lung (2) Parkinsonism (3) Dementia due to Parkinson's disease with behavioral disturbance (4) Malnutrition Symptom Scale: (1) Agitation 0-10 Scale: 0 Pertinent Non-Medical Issues Psychosocial: Spiritual:Oriental Orthodox Legal:Has power of ip technology transactions attorney for health Care : Jordi Call (), alternate is Kristine crabtree and Lor doan Ethical issues impacting care:none Important Contacts Lor Doan [phone] (daughter) Jordi Call [phone] (spouse) Kristine Crabtree [phone] (daughter) Prognosis 77-year-old with Parkinson's, dementia with significant behavioral disturbances that prevent her from getting nutrition. Patient at risk for continued functional decline, repeated hospitalization, falls, infection. Would be appropriate for hospice if goals of treatment were comfort oriented. Code Status: No Code Plan == capacity to make medical decisions- tends to fluctuate, I do not think she can make medical decisions on her own currently. == code: DNR. == Health care surrogate: (who is elderly) realistically, and rely on daughter Lor as health care surrogate. is not reasonably reachable. Lor Doan is the alternate Health Care surrogate. == goals of treatment: no change in goals of treatment. * No Code/ DNR/ DNI. Community DNR left at bedside, both pt and pt's daughter will sign. * No peg tube. * daughter and pt for the time being declined hospice. 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 Pt previously was on [facility]. * Pt and daughter want to try rehab one more time with the goal of going home. * IF pt does not do well in rehab, they are open to hospice consultation then. I have offered Hospice consultation to find out more information, but daughter will look it up herself. She knows [facility] has a care center in [place]. * Barriers to hospice at this point from daughter perspective is per radha, this is the first time she has ever been this agitated; and also pt currently is getting monthly chemo treatment for slow growing carcinoid tumor. Goals are unlikely to change until another decline in functional status. == Symptom- agitation- multifactorial likely combination of poor nutrition, renal insufficience, dementia. == Palliative Care will follow for recommendation of symptom management and review goals of treatment as patient's clinical condition evolves. Attestation To help prompt me to consider important information that might be impacting today's encounter and assessment, information from prior notes written by myself or my colleagues may have been "brought forward" into today's note. My signature on this note, however, is an attestation that I personally performed the exam, history, and/or decision-making noted today, and, unless otherwise indicated, the interactions with patient, family, and staff as well as the review of records all occurred today. I also attest that the listed assessment and stated plan reflect my best clinical judgment today based on the combination of historical information, prior notes, and today's exam/ interactions. When time spent is documented, it refers only to time spent today by the signer, or if indicated, combined time spent today by collaborating physician/nurse practitioner. Andrzej Smith MD Oct 15, 2017 16:49
[2017-10-15 18:45] VITALS: BP 123/68; PULSE 81; RESP 16; TEMP 99; O2SAT 96
--- NOTE | 2017-10-15 19:54 | MB ---
cc: Desiree Styles MD, Jeffrey D MD DATE: 10/15/2017 REFERRING PHYSICIAN: Dr. Robin Cadet. CHIEF COMPLAINT: Dr. Cadet requested consultation for Ms. Call regarding history of metastatic carcinoid. HISTORY OF PRESENT ILLNESS: Ms. Call is a 77-year-old woman, well known patient with long history of metastatic carcinoid. She was seen in clinic on 09/27/2017. She was brought in by her and daughter. We discussed treatment for her Parkinson's, decubitus ulcer, and octreotide injection. She is noted to have vitamin D deficiency. She has been given a loading dose of vitamin D, but was not taking it. Her course was complicated by constipation, dehydration, and renal insufficiency. She has joint pain. She was offered hydration, which she declined. She was going to try MiraLax at home. Apparently, she became confused at home. In retrospect, it was attributed to urinary tract infection. Her , who was the main caregiver, did not recognize the symptoms until she was confused. Under the advice of her daughter from [facility], she was brought in to the hospital. She was seen by Brent Weathers. She had generalized weakness. She had nausea, vomiting and pain in the right hip. She was confused. In retrospect, Ms. Call has no recollection of the events leading up to her hospitalization. She has pieced together the information from discussing her signs and symptoms with her family. With her underlying dementia from her Parkinson, she developed altered mental status change. She became combative. She was subsequently admitted to psychiatry under the care of Dr. J Luis Acuna. She was admitted to psychiatry on 10/13/2017. She has since improved. At the time of the consultation, she is awake, alert, oriented to self and place. She did not know the exact date. She thought it was Saturday. She was conversant and appropriate as her baseline. We discussed the events that led up to her admission to psychiatry. She understands that she is in the psychiatry carranza at [facility]. She feels better and is interested in proceeding with physical therapy. She would like to go home. She understands that her main caregiver at home is her . Apparently, they are trying to make arrangements for someone to help as their prior arrangement prior to her hospitalization. She denies any pain. She denies any headaches, no vision changes. She denies any flushing or diarrhea. Hematology/Oncology is consulted for her history of metastatic carcinoid. She has noted multiple consultants taking care of her during this hospitalization. Neurology is following. There is consideration for NG tube feeding. It appears the patient is reluctant as far as to consider this. PAST MEDICAL HISTORY: Hypertension, osteoarthritis, osteoporosis, Parkinson's, advanced dementia, depression, known pulmonary nodules, carcinoid syndrome. PAST SURGICAL HISTORY: Tonsillectomy, right upper lung and mid lung lobectomy, bilateral salpingo and right oophorectomy, colonoscopy, hysterectomy, section. ALLERGIES: 1. ERYTHROMYCIN. 2. PENICILLIN. 3. SULFA. CURRENT MEDICATIONS: 1. Potassium chloride. 2. Aspirin. 3. Vitamin D3. 4. Cymbalta. 5. Magnesium oxide. 6. Namenda. 7. Procardia. 8. Pravachol. 9. Vitamin B1. 10. Vitamin D with calcium. 11. Clonidine. PHYSICAL EXAMINATION: VITAL SIGNS: Temperature 99.0, heart rate 81, respiratory rate 16, blood pressure 123/68, saturation 96%. GENERAL: Ms. Call is a well-developed, cachectic, elderly woman who is awake, alert, oriented and appropriately discussing her care. HEENT: She has bitemporal wasting. Her pupils are round, reactive to light and accommodation. Oropharynx is clear. NECK: Supple. LUNGS: Clear to auscultation. CARDIOVASCULAR: Reveals normal rate and rhythm. ABDOMEN: Benign. MUSCULOSKELETAL: With no edema. NEUROLOGIC: She has rigidity, masked facies. LABORATORY DATA: Significant for hemoglobin 10.8, platelet count 133. Chemistry: BUN of 13, creatinine 1.24. Liver functions are decreased total protein of 5.8, albumin at 3.0. ASSESSMENT AND PLAN: Ms. Call is a 77-year-old woman with multiple medical problems, including end-stage Parkinson's with underlying dementia. Her course is complicated by osteoporosis, previous fracture, vitamin D deficiency. She has metastatic carcinoid and is followed at Hematology/Oncology clinic. She had carcinoid syndrome for which she is on octreotide. She was switched recently to Somatuline for carcinoid syndrome. There is a smaller volume for delivery in light of her very emaciated state. Defer to case management to coordinate her discharge planning. She needs assistance at home where she wishes to go. Her is overwhelmed as being a caregiver. They have home health and despite this, she decompensated and came into the hospital acutely confused. I will follow her chromogranin A. She was given her octreotide in beginning of the month. She is not due for another dose until next month. Her questions were answered to her satisfaction. MD MERNA Yarbrough/DARÍO , 07:24 PM , 07:52 PM
[2017-10-16] MEDS: CARBIDOPA/LEVODOPA 25 MG/100 MG TAB PO SCH ×4 (00:53→18:00)
[2017-10-16] MEDS: D5-1/2 NS + KCL 10 MEQ INJ 1,000 ML IV SCH ×2 (03:45→15:40)
[2017-10-16 05:04] VITALS: BP 141/76; PULSE 74; RESP 15; TEMP 98; O2SAT 96
[2017-10-16 07:51] LABS: AUTOMATED NEUTROPHIL # 2.7 TH/MM3 (1.8-7.7); EOSINOPHIL # 0.4 TH/MM3 (0-0.4); EOSINOPHIL % 9.3 % (0.0-4.0); HEMATOCRIT 32.1 % (35.0-46.0); HEMOGLOBIN 10.6 GM/DL (11.6-15.3); LYMPH % 11.8 % (9.0-44.0); LYMPHOCYTE # 0.5 TH/MM3 (1.0-4.8); MEAN CELL VOLUME 95.1 FL (80.0-100.0); MEAN CORPUSCULAR HEMOGLOBIN 31.5 PG (27.0-34.0); MEAN CORPUSCULAR HGB CONC 33.2 % (32.0-36.0); MEAN PLATELET VOLUME 11.1 FL (7.0-11.0); MONO % 9.3 % (0.0-8.0); MONOCYTE # 0.4 TH/MM3 (0-0.9); NEUT % 68.6 % (16.0-70.0); PLATELET COUNT 122 TH/MM3 (150-450); RED BLOOD COUNT 3.37 MIL/MM3 (4.00-5.30); RED CELL DISTRIBUTION WIDTH 14.2 % (11.6-17.2)
[2017-10-16 08:09] LABS: BICARBONATE 23.2 MEQ/L (21.0-32.0); CREATININE 1.25 MG/DL (0.50-1.00); MAGNESIUM 1.6 MG/DL (1.5-2.5)
[2017-10-16 08:18] LABS: CALCIUM 7.4 MG/DL (8.5-10.1)
[2017-10-16] MEDS: DOCUSATE SODIUM 50 MG/SENNA 8.6 MG TAB PO SCH ×2 (09:36→21:08)
[2017-10-16] MEDS: THIAMINE HCL 100 MG TAB PO SCH (09:36)
[2017-10-16] MEDS: PRAVASTATIN SOD 40 MG TAB PO SCH (09:36)
[2017-10-16] MEDS: DULoxetine HCl DR 60 MG CAP PO SCH (09:36)
[2017-10-16] MEDS: HEPARIN SODIUM - SQ 10,000 UNITS/ML VIAL SQ SCH ×2 (09:36→21:09)
[2017-10-16] MEDS: ASPIRIN EC 81 MG TABEC PO SCH (09:37)
[2017-10-16] MEDS: MAGNESIUM OXIDE 400 MG TAB PO SCH (09:37)
[2017-10-16] MEDS: NIFEdipine 30 MG SUSTAINED RELEASE TAB PO SCH (09:37)
[2017-10-16] MEDS: MEMANTINE HCL 10 MG TAB PO SCH (09:37)
[2017-10-16] MEDS: CHOLECALCIFEROL (VIT D3) 5000 UNIT CAP PO SCH (09:38)
[2017-10-16] MEDS: CALCIUM/VITAMIN D 250 MG/125 U TAB PO SCH ×2 (09:38→21:08)
--- NOTE | 2017-10-16 10:03 | HHI.PYPN ---
Subjective Remarks Patient seen in her room with nurse Herson, chart reviewed, patient complaint medications. Patient calm cooperative with me quite pleasant with me with an occasional small smile. Patient now is oriented to person she knows she is in [facility] in [facility] that is 2017 and that it is October. She states she lives with her of 60+ years. She denies suicidality and homicidality voices or visions. 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 If this time I feel patient has the capacity to sign voluntary thus I will lift Pope act allow the patient signed voluntary. We need to contact patient's and family to determine placement issues and discuss discharge plans Review of Systems Except as stated in HPI: all other systems reviewed are Neg Mental Status Examination Appearance: Appropriate Consciousness: Alert Orientation: Person Speech: Other (Low volume) Language: Adequate Fund of Knowledge: Inadequate Attention and Concentration: Easily Distracted Memory: Impaired Mood: Other ("Fine") Affect: Blunt Thought Process & Associations: Other ([place]) Thought Content: Other Hallucination Type: None Delusion Type: None Suicidal Ideation: No Suicidal Plan: No Suicidal Intention: No Homicidal Ideation: No Homicidal Plan: No Homicidal Intention: No Insight: Poor Judgment: Poor Results Labs Test 10/16/17 06:56 White Blood Count 4.0 TH/MM3 Red Blood Count 3.37 MIL/MM3 Hemoglobin 10.6 GM/DL Hematocrit 32.1 % Mean Corpuscular Volume 95.1 FL Mean Corpuscular Hemoglobin 31.5 PG Mean Corpuscular Hemoglobin Concent 33.2 % Red Cell Distribution Width 14.2 % Platelet Count 122 TH/MM3 Mean Platelet Volume 11.1 FL Neutrophils (%) (Auto) 68.6 % Lymphocytes (%) (Auto) 11.8 % Monocytes (%) (Auto) 9.3 % Eosinophils (%) (Auto) 9.3 % Basophils (%) (Auto) 1.0 % Neutrophils # (Auto) 2.7 TH/MM3 Lymphocytes # (Auto) 0.5 TH/MM3 Monocytes # (Auto) 0.4 TH/MM3 Eosinophils # (Auto) 0.4 TH/MM3 Basophils # (Auto) 0.0 TH/MM3 CBC Comment DIFF FINAL Differential Comment Blood Urea Nitrogen 11 MG/DL Creatinine 1.25 MG/DL Random Glucose 133 MG/DL Albumin 3.0 GM/DL Calcium Level 7.4 MG/DL Phosphorus Level 2.0 MG/DL Magnesium Level 1.6 MG/DL Sodium Level 142 MEQ/L Potassium Level 3.8 MEQ/L Chloride Level 109 MEQ/L Carbon Dioxide Level 23.2 MEQ/L Anion Gap 10 MEQ/L Estimat Glomerular Filtration Rate 41 ML/MIN Vitals/IOs Vital Signs Date Time Temp Pulse Resp B/P (MAP) Pulse Ox O2 Delivery O2 Flow Rate FiO2 10/16/17 05:04 98.0 74 15 141/76 (97) 96 Intake and Output 10/16/17 10/16/17 10/16/17 07:59 15:59 23:59 Intake Total 950 ml Output Total 600 ml Balance 350 ml Assessment & Plan Problem List: (1) Dementia due to Parkinson's disease with behavioral disturbance ICD Codes: G20 - Parkinson's disease; F02.81 - Dementia in other diseases classified elsewhere with behavioral disturbance Assessment & Plan Estimated LOS: days patient's parkinsonism is obvious with her significant tremors, though her orientation is markedly improved. Will lift Pope act allow patient to sign voluntary work with family to discuss discharge plans and placement issues Justification for Cont. Inpt. At this time patient would decompensate a place to a lower level of care Discharge Planning Hopefully to return home with her Request HC Surrog/Guard Advoc?: No Jordi Meng MD Oct 16, 2017 10:03
[2017-10-16] MEDS ORDERED: MAGNESIUM SULFATE 1 GM PREMIX 100 ML IV ONE (10:30)
[2017-10-16] MEDS ORDERED: POTASSIUM PHOSPHATE MONOBASIC 500 MG TAB PO SCH (10:30)
[2017-10-16] MEDS ORDERED: CALCIUM GLUCONATE INJ 1 GM in SODIUM CHLORIDE 0.9% INJ 100 ML IV ONE (10:30)
--- NOTE | 2017-10-16 10:30 | PD.ONC.PN ---
Subjective Subjective Remarks Afebrile overnight. Patient resting in bed in nad. no diarrhea yet today, but she thinks she will have some later today. no chest pain or shortness of breath. Objective Data Date Time Temp Pulse Resp B/P (MAP) Pulse Ox O2 Delivery O2 Flow Rate FiO2 10/16/17 05:04 98.0 74 15 141/76 (97) 96 10/15/17 18:45 99.0 81 16 123/68 (86) 96 10/16/17 10/16/17 10/16/17 07:00 15:00 23:00 Intake Total 1430 ml Output Total 600 ml Balance 830 ml Result Diagram: 10/16/17 0656 10/16/17 0656 Laboratory Results Laboratory Tests Test 10/16/17 06:56 White Blood Count 4.0 TH/MM3 Red Blood Count 3.37 MIL/MM3 Hemoglobin 10.6 GM/DL Hematocrit 32.1 % Mean Corpuscular Volume 95.1 FL Mean Corpuscular Hemoglobin 31.5 PG Mean Corpuscular Hemoglobin Concent 33.2 % Red Cell Distribution Width 14.2 % Platelet Count 122 TH/MM3 Mean Platelet Volume 11.1 FL Neutrophils (%) (Auto) 68.6 % Lymphocytes (%) (Auto) 11.8 % Monocytes (%) (Auto) 9.3 % Eosinophils (%) (Auto) 9.3 % Basophils (%) (Auto) 1.0 % Neutrophils # (Auto) 2.7 TH/MM3 Lymphocytes # (Auto) 0.5 TH/MM3 Monocytes # (Auto) 0.4 TH/MM3 Eosinophils # (Auto) 0.4 TH/MM3 Basophils # (Auto) 0.0 TH/MM3 CBC Comment DIFF FINAL Differential Comment Blood Urea Nitrogen 11 MG/DL Creatinine 1.25 MG/DL Random Glucose 133 MG/DL Albumin 3.0 GM/DL Calcium Level 7.4 MG/DL Phosphorus Level 2.0 MG/DL Magnesium Level 1.6 MG/DL Sodium Level 142 MEQ/L Potassium Level 3.8 MEQ/L Chloride Level 109 MEQ/L Carbon Dioxide Level 23.2 MEQ/L Anion Gap 10 MEQ/L Estimat Glomerular Filtration Rate 41 ML/MIN Administered Medications Medications (Trade) Dose Ordered Sig/José Antonio Route PRN Reason Start Time Stop Time Status Last Admin Dose Admin Aspirin (Ecotrin Ec) 81 mg DAILY PO 10/14/17 09:00 10/16/17 09:37 Calcium/Vitamin D (Oscal-D 250-125) 250 mg Q12HR PO 10/13/17 21:00 10/16/17 09:38 Cholecalciferol (Vitamin D3) 5,000 units DAILY PO 10/14/17 09:00 10/16/17 09:38 Clonidine (Catapres-Tts 0.2 Mg Patch.7d) 1 patch Q7D T-DERMAL 10/13/17 20:00 10/13/17 20:00 Duloxetine HCl (Cymbalta Dr) 60 mg DAILY PO 10/14/17 09:00 10/16/17 09:36 Magnesium Oxide (Mag-Ox) 400 mg DAILY PO 10/14/17 09:00 10/16/17 09:37 Memantine (Namenda) 10 mg DAILY PO 10/14/17 09:00 10/16/17 09:37 Nifedipine (Procardia Xl) 30 mg DAILY PO 10/14/17 09:00 10/16/17 09:37 Pravastatin Sodium (Pravachol) 40 mg DAILY PO 10/14/17 09:00 10/16/17 09:36 Thiamine HCl (Vitamin B1) 100 mg DAILY PO 10/14/17 09:00 10/16/17 09:36 Senna/Docusate Sodium (Norma-Colace) 1 tab BID PO 10/14/17 21:00 10/16/17 09:36 Potassium Chloride/Dextrose/ Sod Cl 1,000 ml @ 84 mls/hr [id number] IV 10/14/17 16:00 10/16/17 03:45 Carbidopa/Levodopa (Sinemet 25-100 Mg) 1 tab Q6HR PO 10/14/17 18:00 10/16/17 09:38 Heparin Sodium (Porcine) (Heparin Inj) 5,000 units Q12HR SQ 10/14/17 21:00 10/16/17 09:36 Objective Remarks GENERAL: Frail appearing female, lying in bed in nad. SKIN: Warm and dry. HEAD: Normocephalic. EYES: No injection or drainage. NECK: Supple, trachea midline. CARDIOVASCULAR: Regular rate and rhythm RESPIRATORY: Breath sounds equal bilaterally. No accessory muscle use. GASTROINTESTINAL: Abdomen soft, non-tender, nondistended. EXTREMITIES: No cyanosis NEUROLOGICAL: awake and alert. normal speech. Assessment/Plan Assessment 77y/o female with metastatic carcinoid admitted with confusion, UTI h/o Parkinson's, decubitus ulcer, and octreotide injection. constipation, dehydration, and renal insufficiency. Plan 1. carcinoid syndrome --on octreotide outpatient. recently switched to somatuline for carcinoid syndrome --plan for follow up in clinic upon discharge. 2. monitor chromogranin A, serotonin levels. Attending Statement Agree with above. Follow Chromogranin A. Stacy Jane Oct 16, 2017 10:30 Desiree Styles MD Oct 16, 2017 19:09
[2017-10-16] MEDS ORDERED: BISACODYL 10 MG SUPP RECTAL PRN (12:30)
[2017-10-16] MEDS: MEGESTROL ACETATE SUSP 400 MG/10 ML CUP PO SCH (12:30)
[2017-10-16] MEDS: POTASSIUM PHOSPHATE/SODIUM PHOSPHATE 250 MG TAB PO SCH ×2 (15:00→21:08)
--- NOTE | 2017-10-16 15:43 | HHI.HCPN ---
Reason for visit a. To assist with evaluation and management of symptoms including: constipation, nausea, malnutrition. b. To assist medical decision maker(s) with: better understanding of current medical conditions; weighing benefits/burdens of medical treatment options; making medical treatment decisions. Subjective/Interval History Patient on my visit is eating, she is calm. She did have some nausea this morning, but feels a little better later on in the morning per daughter. She denies pain. Pt is not agitated. Patients Pope act is lifted and psych feel pt has capacity. Daughter at bedside, and reaffirms again both daughter and patient signed a community DNR. She has been constipated, preferred suppositories. She did receive an enema. I feel likely her constipation may have contribute to her nausea. Daughter inquire about medication to stimulate appetite for decrease appetite/ malnutrition, review with pt and daughter and they are amenable to start low dose of megace. goals of care has not changed. Family/friend interactions see hpi Advance Directives Living Will: Copy in medical record Advance Directive Specifics Documented care wishes: "I direct that my health-care providers and others involved in my care provide , withold or withdraw treatment in accordance with the hocie I have makred below : Choice not to Prolong life... Objective Vital Signs Date Time Temp Pulse Resp B/P (MAP) Pulse Ox O2 Delivery O2 Flow Rate FiO2 10/16/17 05:04 98.0 74 15 141/76 (97) 96 10/15/17 18:45 99.0 81 16 123/68 (86) 96 Intake & Output 10/16/17 10/16/17 06:59 18:59 Intake Total 1430 ml Output Total 600 ml Balance 830 ml Intake Oral 480 ml IV Total 950 ml Output Urine Total 600 ml # Voids 1 Physical Exam CONSTITUTIONAL/GENERAL: This is an elderly lady, calm and cooperative SKIN: No jaundice, rashes, or lesions. Ecchymoses on upper extremities. No wounds seen anteriorly. Skin temperature appropriate. Not diaphoretic. HEAD: Atraumatic. Normocephalic. EYES: Pupils equal and round and reactive. Extraocular motions intact. No scleral icterus. No injection or drainage. Fundi not examined. ENT: Hearing grossly normal. Nose without bleeding or purulent drainage. Throat without visible erythema, exudates, masses, or lesions. NECK: Trachea midline. Supple, nontender. No palpable thyroid enlargement or nodularity. CARDIOVASCULAR: Regular rate and rhythm without murmurs, gallops, or rubs. No JVD. Peripheral pulses symmetric. RESPIRATORY/CHEST: Symmetric, unlabored respirations. Clear to auscultation. Breath sounds equal bilaterally. No wheezes, rales, or rhonchi. GASTROINTESTINAL: Abdomen soft, non-tender, nondistended. No hepato-splenomegaly , or palpable masses. No guarding. Bowel sounds present. GENITOURINARY: Without palpable bladder distension. Sherwood catheter in place. MUSCULOSKELETAL: Extremities without clubbing, cyanosis, or edema. No joint tenderness or effusion noted. No calf tenderness. No mottling or clubbing. LYMPHATICS: No palpable cervical or supraclavicular adenopathy. NEUROLOGICAL: Awake and alert. Motor and sensory grossly within normal limits. Follows commands. Poor short term memory. Moves all extremities. PSYCHIATRIC: No obvious anxiety/depression. no apparent hallucinations today, calm. Diagnostic Tests Laboratory Laboratory Tests Test 10/14/17 08:01 10/16/17 06:56 White Blood Count 6.5 TH/MM3 (4.0-11.0) 4.0 TH/MM3 (4.0-11.0) Red Blood Count 3.43 MIL/MM3 (4.00-5.30) 3.37 MIL/MM3 (4.00-5.30) Hemoglobin 10.8 GM/DL (11.6-15.3) 10.6 GM/DL (11.6-15.3) Hematocrit 32.2 % (35.0-46.0) 32.1 % (35.0-46.0) Mean Corpuscular Volume 93.8 FL (80.0-100.0) 95.1 FL (80.0-100.0) Mean Corpuscular Hemoglobin 31.5 PG (27.0-34.0) 31.5 PG (27.0-34.0) Mean Corpuscular Hemoglobin Concent 33.6 % (32.0-36.0) 33.2 % (32.0-36.0) Red Cell Distribution Width 14.0 % (11.6-17.2) 14.2 % (11.6-17.2) Platelet Count 133 TH/MM3 (150-450) 122 TH/MM3 (150-450) Mean Platelet Volume 11.1 FL (7.0-11.0) 11.1 FL (7.0-11.0) Neutrophils (%) (Auto) 74.7 % (16.0-70.0) 68.6 % (16.0-70.0) Lymphocytes (%) (Auto) 15.8 % (9.0-44.0) 11.8 % (9.0-44.0) Monocytes (%) (Auto) 6.4 % (0.0-8.0) 9.3 % (0.0-8.0) Eosinophils (%) (Auto) 2.1 % (0.0-4.0) 9.3 % (0.0-4.0) Basophils (%) (Auto) 1.0 % (0.0-2.0) 1.0 % (0.0-2.0) Neutrophils # (Auto) 4.9 TH/MM3 (1.8-7.7) 2.7 TH/MM3 (1.8-7.7) Lymphocytes # (Auto) 1.0 TH/MM3 (1.0-4.8) 0.5 TH/MM3 (1.0-4.8) Monocytes # (Auto) 0.4 TH/MM3 (0-0.9) 0.4 TH/MM3 (0-0.9) Eosinophils # (Auto) 0.1 TH/MM3 (0-0.4) 0.4 TH/MM3 (0-0.4) Basophils # (Auto) 0.1 TH/MM3 (0-0.2) 0.0 TH/MM3 (0-0.2) CBC Comment DIFF FINAL DIFF FINAL Differential Comment Blood Urea Nitrogen 13 MG/DL (7-18) 11 MG/DL (7-18) Creatinine 1.24 MG/DL (0.50-1.00) 1.25 MG/DL (0.50-1.00) Random Glucose 106 MG/DL (74-106) 133 MG/DL (74-106) Total Protein 5.8 GM/DL (6.4-8.2) Albumin 3.0 GM/DL (3.4-5.0) 3.0 GM/DL (3.4-5.0) Calcium Level 7.6 MG/DL (8.5-10.1) 7.4 MG/DL (8.5-10.1) Alkaline Phosphatase 63 U/L (45-117) Aspartate Amino Transf (AST/SGOT) 13 U/L (15-37) Alanine Aminotransferase (ALT/SGPT) LESS THAN 6 U/L (10-53) Total Bilirubin 0.5 MG/DL (0.2-1.0) Sodium Level 144 MEQ/L (136-145) 142 MEQ/L (136-145) Potassium Level 4.3 MEQ/L (3.5-5.1) 3.8 MEQ/L (3.5-5.1) Chloride Level 113 MEQ/L (98-107) 109 MEQ/L (98-107) Carbon Dioxide Level 21.6 MEQ/L (21.0-32.0) 23.2 MEQ/L (21.0-32.0) Anion Gap 9 MEQ/L (5-15) 10 MEQ/L (5-15) Estimat Glomerular Filtration Rate 42 ML/MIN (>89) 41 ML/MIN (>89) Hemoglobin A1c 5.2 % (4.3-6.0) Triglycerides Level 86 MG/DL (42-150) Cholesterol Level 154 MG/DL (120-200) LDL Cholesterol 84 MG/DL (0-99) HDL Cholesterol 53.1 MG/DL (40.0-60.0) Cholesterol/HDL Ratio 2.90 RATIO Phosphorus Level 2.0 MG/DL (2.5-4.9) Magnesium Level 1.6 MG/DL (1.5-2.5) Result Diagram: 10/16/1765510/16/17655 Assessment and Plan Disease Oriented Problem List: (1) Carcinoid tumor of lung (2) Parkinsonism (3) Dementia due to Parkinson's disease with behavioral disturbance (4) Malnutrition Symptom Scale: (1) Nausea 0-10 Scale: Unable to quantify (2) Malnutrition 0-10 Scale: Unable to quantify (3) Constipation 0-10 Scale: Unable to quantify Pertinent Non-Medical Issues Psychosocial: Spiritual:Yazdanism Legal:Has power of deputy commonwealth's attorney for health Care : Jordi Call (), alternate is Kristine crabtree and Lor doan Ethical issues impacting care:none Important Contacts Lor Doan [phone] (daughter) Jordi Call [phone] (spouse) Kristine Crabtree [phone] (daughter) Prognosis 77-year-old with Parkinson's, dementia with significant behavioral disturbances that prevent her from getting nutrition. Patient at risk for continued functional decline, repeated hospitalization, falls, infection. Would be appropriate for hospice if goals of treatment were comfort oriented. Code Status: No Code Plan == capacity to make medical decisions- tends to fluctuate, but currently pope act has been lifted, and psych feels pt has capacity. == code: DNR. both pt and family/alternate surrogate signed community DNR == Health care surrogate: (who is elderly) realistically, and rely on daughter Lor as health care surrogate. is not reasonably reachable. Lor Doan is the alternate Health Care surrogate. == goals of treatment: no change in goals of treatment. * No Code/ DNR/ DNI. Community DNR left at bedside, both pt and pt's daughter will sign. * No peg tube. * daughter and pt for the time being declined hospice. 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 Pt previously was on [facility]. * Pt and daughter want to try rehab one more time with the goal of going home. * IF pt does not do well in rehab, they are open to hospice consultation then. I have offered Hospice consultation to find out more information, but daughter will look it up herself. She knows [facility] has a care center in [place]. * Barriers to hospice at this point from daughter perspective is per radha, this is the first time she has ever been this agitated; and also pt currently is getting monthly chemo treatment for slow growing carcinoid tumor. Goals are unlikely to change until another decline in functional status. == Symptom- agitation- not agitated. nausea- have some constipation, pt/family preferred suppository, I will order dulcolax suppositor. Continue Zofran. I did review with daughter given her parkingsons' spectrum of antiemetics is limited for her due to contraindication with parkingsons. decrease appetite- will start trial of megace. ==Goals of care set, will follow peripherally. Attestation To help prompt me to consider important information that might be impacting today's encounter and assessment, information from prior notes written by myself or my colleagues may have been "brought forward" into today's note. My signature on this note, however, is an attestation that I personally performed the exam, history, and/or decision-making noted today, and, unless otherwise indicated, the interactions with patient, family, and staff as well as the review of records all occurred today. I also attest that the listed assessment and stated plan reflect my best clinical judgment today based on the combination of historical information, prior notes, and today's exam/ interactions. When time spent is documented, it refers only to time spent today by the signer, or if indicated, combined time spent today by collaborating physician/nurse practitioner. Andrzej Smith MD Oct 16, 2017 15:43
--- NOTE | 2017-10-16 16:22 | HHI.PR ---
Subjective Remarks Follow up for constipation, Parkinson's, dementia. The patient is currently awake, alert, oriented to self, hospital in [place], October "2199 something". She states she is eating more today, confirmed by RN. She also reportedly had BMs yesterday after fleet enema. She denies any abdominal pain, nausea, or vomiting. She has no other medical complaints at this time. Objective Vitals Vital Signs Date Time Temp Pulse Resp B/P (MAP) Pulse Ox O2 Delivery O2 Flow Rate FiO2 10/16/17 05:04 98.0 74 15 141/76 (97) 96 10/15/17 18:45 99.0 81 16 123/68 (86) 96 I/O 10/15/17 10/15/17 10/15/17 10/16/17 10/16/17 10/16/17 07:00 15:00 23:00 07:00 15:00 23:00 Intake Total 1130 ml 120 ml 240 ml 1430 ml Output Total 700 ml 600 ml Balance 430 ml 120 ml 240 ml 830 ml Intake Oral 180 ml 120 ml 240 ml 480 ml IV Total 950 ml 950 ml Output Urine Total 700 ml 600 ml # Voids 1 Result Diagram: 10/16/17 0656 10/16/17 0656 Objective Remarks GENERAL: Thin elderly female patient in [facility]. SKIN: Warm and dry. No rash. HEENT: Normocephalic. Atraumatic. Pupils equal and round. Mucous membranes pink and moist. CARDIOVASCULAR: Regular rate and rhythm. No murmur appreciated. RESPIRATORY: No accessory muscle use. Clear to auscultation. Breath sounds equal bilaterally. GASTROINTESTINAL: Abdomen soft, nondistended, nontender to palpation. Normoactive bowel sounds x4. MUSCULOSKELETAL: No obvious deformities. Extremities without clubbing, cyanosis , or edema. NEUROLOGICAL: Awake and alert. No obvious cranial nerve deficits. Motor grossly within normal limits. Moving all extremities spontaneously. Normal speech. PSYCHIATRIC: insight and judgment limited Medications and IVs Current Medications Medications (Trade) Dose Ordered Sig/José Antonio Route Start Time Stop Time Status Last Admin (Tylenol) 650 mg Q4H PRN PO 10/13/17 20:00 (Milk Of Magnesia Liq) 30 ml DAILY PRN PO 10/13/17 20:00 (Mag-Al Plus Susp Liq) 30 ml Q6H PRN PO 10/13/17 20:00 (Habitrol 21 Mg Patch.24 Hr) 1 patch DAILY PRN T-DERMAL 10/13/17 20:00 (Ecotrin Ec) 81 mg DAILY PO 10/14/17 09:00 10/16/17 09:37 (Oscal-D 250-125) 250 mg Q12HR PO 10/13/17 21:00 10/16/17 09:38 (Vitamin D3) 5,000 units DAILY PO 10/14/17 09:00 10/16/17 09:38 (Catapres-Tts 0.2 Mg Patch.7d) 1 patch Q7D T-DERMAL 10/13/17 20:00 10/13/17 20:00 (Cymbalta Dr) 60 mg DAILY PO 10/14/17 09:00 10/16/17 09:36 (Mag-Ox) 400 mg DAILY PO 10/14/17 09:00 10/16/17 09:37 (Namenda) 10 mg DAILY PO 10/14/17 09:00 10/16/17 09:37 (Procardia Xl) 30 mg DAILY PO 10/14/17 09:00 10/16/17 09:37 (Pravachol) 40 mg DAILY PO 10/14/17 09:00 10/16/17 09:36 (Vitamin B1) 100 mg DAILY PO 10/14/17 09:00 10/16/17 09:36 (Zofran Odt) 4 mg Q6HR PRN PO 10/13/17 20:00 (Norma-Colace) 1 tab BID PO 10/14/17 21:00 10/16/17 09:36 Potassium Chloride/Dextrose/ Sod Cl 1,000 ml @ 84 mls/hr [id number] IV 10/14/17 16:00 10/16/17 03:45 (Sinemet 25-100 Mg) 1 tab Q6HR PO 10/14/17 18:00 10/16/17 09:38 (Ativan) 0.5 mg Q12HR PRN PO 10/14/17 16:15 (Benadryl) 50 mg HS PRN PO 10/14/17 16:15 (Vasotec Inj) 1.25 mg Q6H PRN IV PUSH 10/14/17 16:30 (Heparin Inj) 5,000 units Q12HR SQ 10/14/17 21:00 10/16/17 09:36 (Dulcolax Supp) 10 mg ONCE PRN RECTAL 10/16/17 12:30 10/17/17 12:29 (Megace Liq) 40 mg DAILY PO 10/16/17 12:30 (K-Phos Neutral) 500 mg Q12HR PO 10/16/17 15:00 A/P Assessment and Plan 77-year-old female with: Paranoia: acute -Continue management as per psychiatry. -improving Parkinson's disease: acute on chronic -continue Sinemet. -Consulted neurology due to worsening Parkinson's disease, appreciate assistance. -Continue PT -Palliative care following, appreciate assistance Constipation, Nausea/Vomiting, Decreased Appetite: suspect multifactorial with acute constipation in combination with advanced parkinson's/dementia -Checked LFTs, lipase and CT abdomen on last admission, showed moderate stool burden. -No bowel movements during last admission or this admission. -Likely worsened secondary to Ditropan which was discontinued. -Avoid narcotics -Continue bowel regimen -Given fleet enema x1, patient reportedly with multiple subsequent BMs -Monitor BMs -Started on appetite stimulant with megace 40mg daily CKD stage III: chronic. -Appears close to baseline however with recent poor oral intake, patient at risk for dehydration, will start maintenance IVF hydration -monitor BMP Hypertension: Blood pressure elevated at times. -Blood pressure elevated but acceptable. -continue clonidine patch, nifedipine. Overactive bladder. -Discontinue Ditropan due to constipation. -monitor urine output Hypomagnesemia, Hypophosphatemia, Hypocalcemia: suspect secondary to decrease oral intake -give IV Calcium Gluconate and IV Mag Sulfate x1 now -give K-Phos 500mg po bid -continue po Calcium supplement -monitor electrolytes, replace as needed Metastatic Carcinoid Syndrome: chronic -on octreotide therapy as outpatient -continue outpatient follow up with oncology DVT prophylaxis. Heparin sq Discharge Planning The patient appears medically stable at this time and can be discharged when cleared by psychiatry. Belle Lizarraga PA-C Oct 16, 2017 4:22 pm
[2017-10-16 18:00] VITALS: BP 119/60; PULSE 98; RESP 16; TEMP 97.7; O2SAT 96
[2017-10-17] MEDS: CARBIDOPA/LEVODOPA 25 MG/100 MG TAB PO SCH ×3 (00:13→12:00)
[2017-10-17] MEDS: D5-1/2 NS + KCL 10 MEQ INJ 1,000 ML IV SCH (03:35)
[2017-10-17 06:07] VITALS: BP 150/77; PULSE 96; RESP 16; O2SAT 96
[2017-10-17 06:37] VITALS: TEMP 97.9
[2017-10-17] MEDS: POTASSIUM PHOSPHATE/SODIUM PHOSPHATE 250 MG TAB PO SCH (09:00)
[2017-10-17] MEDS: DULoxetine HCl DR 60 MG CAP PO SCH (09:00)
[2017-10-17] MEDS: CHOLECALCIFEROL (VIT D3) 5000 UNIT CAP PO SCH (09:00)
[2017-10-17] MEDS: NIFEdipine 30 MG SUSTAINED RELEASE TAB PO SCH (09:00)
[2017-10-17] MEDS: PRAVASTATIN SOD 40 MG TAB PO SCH (09:00)
[2017-10-17] MEDS: MEMANTINE HCL 10 MG TAB PO SCH (09:00)
[2017-10-17] MEDS: MAGNESIUM OXIDE 400 MG TAB PO SCH (09:00)
[2017-10-17] MEDS: THIAMINE HCL 100 MG TAB PO SCH (09:00)
[2017-10-17] MEDS: HEPARIN SODIUM - SQ 10,000 UNITS/ML VIAL SQ SCH (09:00)
[2017-10-17] MEDS: ASPIRIN EC 81 MG TABEC PO SCH (09:00)
[2017-10-17] MEDS: MEGESTROL ACETATE SUSP 400 MG/10 ML CUP PO SCH (09:00)
[2017-10-17] MEDS: DOCUSATE SODIUM 50 MG/SENNA 8.6 MG TAB PO SCH (09:00)
[2017-10-17] MEDS: CALCIUM/VITAMIN D 250 MG/125 U TAB PO SCH (09:00)
--- NOTE | 2017-10-17 10:17 | HHI.PYPN ---
Subjective Remarks Patient seen in her room with floor staff, chart reviewed, patient complaint medications, patient discussed with nurse. Medicine progress note of 10/16 noted and agreed with they have given medical clearance for discharge when ready. Patient laying in bed calm and quiet alert and oriented to me denies suicidality or homicidality voices or visions. He has been compliant with medications. We will check with Counselor about discharge plans for this lady probable referral to [facility] Review of Systems Except as stated in HPI: all other systems reviewed are Neg Mental Status Examination Appearance: Appropriate Consciousness: Alert Orientation: Person Speech: Other (Low volume) Language: Adequate Fund of Knowledge: Inadequate Attention and Concentration: Easily Distracted Memory: Impaired Mood: Other ("Fine") Affect: Blunt Thought Process & Associations: Other ([place]) Thought Content: Other Hallucination Type: None Delusion Type: None Suicidal Ideation: No Suicidal Plan: No Suicidal Intention: No Homicidal Ideation: No Homicidal Plan: No Homicidal Intention: No Insight: Poor Judgment: Poor Results Vitals/IOs Vital Signs Date Time Temp Pulse Resp B/P (MAP) Pulse Ox O2 Delivery O2 Flow Rate FiO2 10/17/17 06:37 97.9 10/17/17 06:07 96 16 150/77 (101) 96 Intake and Output 10/17/17 10/17/17 10/18/17 08:00 16:00 00:00 Intake Total 240 ml Balance 240 ml Assessment & Plan Problem List: (1) Dementia due to Parkinson's disease with behavioral disturbance ICD Codes: G20 - Parkinson's disease; F02.81 - Dementia in other diseases classified elsewhere with behavioral disturbance Assessment & Plan Estimated LOS: days patient's mood is improving denying suicidality homicidality voice or visions. Patient has been medically cleared by the medical service. Continue to work with finding appropriate placement for this lady Justification for Cont. Inpt. At this time patient would decompensate if not placed in an appropriate level of care Discharge Planning To be determined Request HC Surrog/Guard Advoc?: Jordi Lutz MD Oct 17, 2017 10:17
[2017-10-17] MEDS ORDERED: DULO1CAP3 PO (14:30)
--- NOTE | 2017-10-17 14:34 | HHI.DS ---
Psychiatry Discharge Summary Inpatient Psychiatric care?: Yes Advance Directive: Yes Mental Health AdvanceDirective: No Health Care Proxy: No Admission Admission Date Oct 13, 2017 at 19:30 Admission Diagnosis: (1) Dementia due to Parkinson's disease with behavioral disturbance ICD Code: G20 - Parkinson's disease; F02.81 - Dementia in other diseases classified elsewhere with behavioral disturbance Brief History Patient is a 77-year-old woman, domiciled with daughter, with a past psychiatric history of dementia, no previous psychiatric admissions, no previous suicide attempt or self-injurious behavior as per chart with a past medical history significant for Parkinson's disease, history of carcinoid tumors , chronic diarrhea, recent CVA, who was brought in by EMS due to nausea and vomiting along with altered mental status and acute kidney injury was admitted to medical floor for the same and during admission was noted to be aggressive, paranoid and hostile along with poor nutritional intake which patient was put under Pope act for concerns of self-care deficit and was admitted to the inpatient psychiatry for further evaluation and management. Patient was found lying hospital bed with daughter at bedside but interviewed alone. Patient was noted to be alert and oriented only to person, stating her mood has been "fair" denying any recent depressive symptoms aside from decreased appetite and energy but currently stating she is feeling somewhat depressed because she was not feeling well physically. Patient this time denies any suicidal homicidal ideations, denies any perceptual service of delusions. Patient was noted to be asking for more food during interview. Collateral history obtained from the patient's daughter stated that patient was at home when patient's was being followed by a visiting nurse and had noted patient to be acting bizarre which prompted patient to be brought to the hospital for evaluation. She agrees to be patient's healthcare surrogate and guardian advocate during his admission and medications were reviewed with her along with the B/R/A head agreed with treatment plan. 10/15/2017 Above note dictated by Dr. Falcon reviewed and agreed with. Dr. Falcon assigned first opinion petition supporting Pope act. Patient seen by me in her room she is drowsy and napping but arousable to confused and disoriented. The low significant behavioral problems. I agree with Dr. Falcon patient meets criteria for involuntary psychiatric hospitalization under the Pope act thus I will cosign second opinion petition supporting Pope act Tobacco Use In Past 30 Days: No Tobacco Past 30 Days Alcohol Use: Never Hospital Course Patient's hospital course was uneventful, her mild cognitive deficits persisted though she overall was calm and pleasant. She denies suicidality homicidality voices or visions. Sequelae of her Parkinson's is present but she is coping well with that. This time patient reached maximum benefit of this hospitalization. There is a bed available for her at [facility] today. Patient to be discharged to that facility with follow-up through that facility she may continue her medications with an Rx for her Cymbalta Results Blood Pressure 150 / 77 Vital Signs Date Time Temp Pulse Resp B/P (MAP) Pulse Ox O2 Delivery O2 Flow Rate FiO2 10/17/17 06:37 97.9 10/17/17 06:07 96 16 150/77 (101) 96 Laboratory Tests Test 10/16/17 06:56 Red Blood Count 3.37 MIL/MM3 (4.00-5.30) Hemoglobin 10.6 GM/DL (11.6-15.3) Hematocrit 32.1 % (35.0-46.0) Platelet Count 122 TH/MM3 (150-450) Mean Platelet Volume 11.1 FL (7.0-11.0) Monocytes (%) (Auto) 9.3 % (0.0-8.0) Eosinophils (%) (Auto) 9.3 % (0.0-4.0) Lymphocytes # (Auto) 0.5 TH/MM3 (1.0-4.8) Creatinine 1.25 MG/DL (0.50-1.00) Random Glucose 133 MG/DL (74-106) Albumin 3.0 GM/DL (3.4-5.0) Calcium Level 7.4 MG/DL (8.5-10.1) Phosphorus Level 2.0 MG/DL (2.5-4.9) Chloride Level 109 MEQ/L (98-107) Estimat Glomerular Filtration Rate 41 ML/MIN (>89) Chromogranin A 190.0 ng/mL (<93) Laboratory Results Test 10/14/17 08:01 Cholesterol Level 154 MG/DL (120-200) HDL Cholesterol 53.1 MG/DL (40.0-60.0) Hemoglobin A1c 5.2 % (4.3-6.0) LDL Cholesterol 84 MG/DL (0-99) Triglycerides Level 86 MG/DL (42-150) Summary of Procedures None done Pending results at discharge: No Medications # of Antipsychotic meds at D/C: 0 Approp Antipsych med options 1 - Minimum of three failed multiple trials of monotherapy. 2 - Documented plan to taper to monotherapy due to previous use of multiple meds OR cross-taper in progress at D/C. 3 - Documentation of augmentation of Clozapine. 4 - Justification other than those listed in allowable values 1-3, document here : Discharge Discharge Date: Oct 17, 2017 Discharge Diagnosis: (1) Dementia due to Parkinson's disease with behavioral disturbance ICD Code: G20 - Parkinson's disease; F02.81 - Dementia in other diseases classified elsewhere with behavioral disturbance Pt Condition on Discharge: Stable Discharge Disposition: Discharge to SNF Discharge Instructions Diet Instructions: As Tolerated, No Restrictions Activities you can perform: Regular-No Restrictions Scheduled Appointment: Facility provider Appointment Date: Oct 18, 2017 Appointment Time: 08:00am Discharge Time > 30 minutes Mental Status Examination Appearance: Appropriate Consciousness: Alert Orientation: Person Speech: Other (Low volume) Language: Adequate Fund of Knowledge: Inadequate Attention and Concentration: Easily Distracted Memory: Impaired Mood: Other ("Fine") Affect: Blunt Thought Process & Associations: Other ([place]) Thought Content: Other Hallucination Type: None Delusion Type: None Suicidal Ideation: No Suicidal Plan: No Suicidal Intention: No Homicidal Ideation: No Homicidal Plan: No Homicidal Intention: No Insight: Poor Judgment: Poor Discharge/Advance Care Plan Health Problems: (1) Dementia due to Parkinson's disease with behavioral disturbance Goals to promote your health * To prevent worsening of your condition and complications * To maintain your health at the optimal level Directions to meet your goals Take your medications as prescribed Follow your dietary instruction Follow activity as directed Keep your appointments as scheduled Take your immunizations and boosters as scheduled If your symptoms worsen call your PCP, if no PCP go to Urgent Care Center or Emergency Room For 24/ questions related to your inpatient stay or results of tests pending at discharge, please contact Dr. Jordi Meng at Smoking is Dangerous to Your Health. Avoid second hand smoking Jordi Meng MD Oct 17, 2017 14:34
--- NOTE | 2017-10-17 15:19 | HHI.PR ---
Subjective Remarks Follow up for Parkinson's, dementia, decreased appetite. The patient reports feeling better again today. She states she is eating more. Denies nausea/ vomiting. Had formed BM yesterday and today. Denies fevers/chills. Denies any other medical complaints. She is looking forward to going to rehab today. Objective Vitals Vital Signs Date Time Temp Pulse Resp B/P (MAP) Pulse Ox O2 Delivery O2 Flow Rate FiO2 10/17/17 06:37 97.9 10/17/17 06:07 96 16 150/77 (101) 96 10/16/17 18:00 97.7 98 16 119/60 (79) 96 I/O 10/16/17 10/16/17 10/16/17 10/17/17 10/17/17 10/17/17 07:00 15:00 23:00 07:00 15:00 23:00 Intake Total 1430 ml 480 ml Output Total 600 ml Balance 830 ml 480 ml Intake Oral 480 ml 480 ml IV Total 950 ml Output Urine Total 600 ml # Voids 1 1 Result Diagram: 10/16/17 0656 10/16/17 0656 Objective Remarks GENERAL: Thin elderly female patient in NAD. Pleasantly confused. SKIN: Warm and dry. No rash. HEENT: Normocephalic. Atraumatic. Pupils equal and round. Mucous membranes pink and moist. CARDIOVASCULAR: Regular rate and rhythm. No murmur appreciated. RESPIRATORY: No accessory muscle use. Clear to auscultation. Breath sounds equal bilaterally. GASTROINTESTINAL: Abdomen soft, nondistended, nontender to palpation. Normoactive bowel sounds x4. MUSCULOSKELETAL: No obvious deformities. Extremities without clubbing, cyanosis , or edema. NEUROLOGICAL: Awake and alert. No obvious cranial nerve deficits. Motor grossly within normal limits. Moving all extremities spontaneously. Normal speech. PSYCHIATRIC: insight and judgment limited Medications and IVs Current Medications Medications (Trade) Dose Ordered Sig/José Antonio Route Start Time Stop Time Status Last Admin (Tylenol) 650 mg Q4H PRN PO 10/13/17 20:00 (Milk Of Magnesia Liq) 30 ml DAILY PRN PO 10/13/17 20:00 (Mag-Al Plus Susp Liq) 30 ml Q6H PRN PO 10/13/17 20:00 (Habitrol 21 Mg Patch.24 Hr) 1 patch DAILY PRN T-DERMAL 10/13/17 20:00 (Ecotrin Ec) 81 mg DAILY PO 10/14/17 09:00 10/17/17 09:00 (Oscal-D 250-125) 250 mg Q12HR PO 10/13/17 21:00 10/17/17 09:00 (Vitamin D3) 5,000 units DAILY PO 10/14/17 09:00 10/17/17 09:00 (Catapres-Tts 0.2 Mg Patch.7d) 1 patch Q7D T-DERMAL 10/13/17 20:00 10/13/17 20:00 (Cymbalta Dr) 60 mg DAILY PO 10/14/17 09:00 10/17/17 09:00 (Mag-Ox) 400 mg DAILY PO 10/14/17 09:00 10/17/17 09:00 (Namenda) 10 mg DAILY PO 10/14/17 09:00 10/17/17 09:00 (Procardia Xl) 30 mg DAILY PO 10/14/17 09:00 10/17/17 09:00 (Pravachol) 40 mg DAILY PO 10/14/17 09:00 10/17/17 09:00 (Vitamin B1) 100 mg DAILY PO 10/14/17 09:00 10/17/17 09:00 (Zofran Odt) 4 mg Q6HR PRN PO 10/13/17 20:00 (Norma-Colace) 1 tab BID PO 10/14/17 21:00 10/17/17 09:00 Potassium Chloride/Dextrose/ Sod Cl 1,000 ml @ 84 mls/hr [id number] IV 10/14/17 16:00 10/17/17 03:35 (Sinemet 25-100 Mg) 1 tab Q6HR PO 10/14/17 18:00 10/17/17 12:00 (Ativan) 0.5 mg Q12HR PRN PO 10/14/17 16:15 (Benadryl) 50 mg HS PRN PO 10/14/17 16:15 (Vasotec Inj) 1.25 mg Q6H PRN IV PUSH 10/14/17 16:30 (Heparin Inj) 5,000 units Q12HR SQ 10/14/17 21:00 10/17/17 09:00 (Megace Liq) 40 mg DAILY PO 10/16/17 12:30 10/17/17 09:00 (K-Phos Neutral) 500 mg Q12HR PO 10/16/17 15:00 10/17/17 09:00 A/P Assessment and Plan 77-year-old female with: Paranoia: acute -Continue management as per psychiatry. -improving Parkinson's disease: acute on chronic -continue Sinemet. -Consulted neurology due to worsening Parkinson's disease, appreciate assistance. -Continue PT -Palliative care following, appreciate assistance, family requests rehab placement Constipation, Nausea/Vomiting, Decreased Appetite: suspect multifactorial with acute constipation in combination with advanced parkinson's/dementia -Checked LFTs, lipase and CT abdomen on last admission, showed moderate stool burden. -No bowel movements during last admission or this admission. -Likely worsened secondary to Ditropan which was discontinued. -Avoid narcotics -Continue bowel regimen -Given fleet enema x1, patient with multiple subsequent BMs -Monitor BMs -Started on appetite stimulant with megace 40mg daily -GI symptoms improved, no further N/V, having normal formed BMs, eating more - stable for discharge CKD stage III: chronic. -Appears close to baseline however with recent poor oral intake, patient at risk for dehydration, given maintenance IVF hydration -BMP stable Hypertension: Blood pressure elevated at times. -Blood pressure elevated but acceptable. -continue clonidine patch, nifedipine. Overactive bladder. -Discontinue Ditropan due to constipation. -monitor urine output Hypomagnesemia, Hypophosphatemia, Hypocalcemia: suspect secondary to decrease oral intake -give IV Calcium Gluconate and IV Mag Sulfate x1 now -give K-Phos 500mg po bid -continue po Calcium supplement -monitor electrolytes, replace as needed Metastatic Carcinoid Syndrome: chronic -on octreotide therapy as outpatient -continue outpatient follow up with oncology DVT prophylaxis. Heparin sq Discharge Planning The patient appears medically stable at this time and can be discharged when cleared by psychiatry. The [facility] is being [facility] 10/17. Belle Lizarraga PA-C Oct 17, 2017 3:19 pm
== END 2017-10-17 16:00 | DRG 57 ==
LOC: H4EA 19:30
PROVIDERS: ADMIT Student in an Organized Health Care Education/Training Program; ATTEND Student in an Organized Health Care Education/Training Program
DX: G20 Parkinson's disease (principal); F02.81 Dementia in other diseases classified elsewhere, unspecified severity, with behavioral disturbance; N18.3 Chronic kidney disease, stage 3 (moderate); I12.9 Hypertensive chronic kidney disease with stage 1 through stage 4 chronic kidney disease, or unspecified chronic kidney disease; E83.42 Hypomagnesemia; E83.51 Hypocalcemia; D3A.090 Benign carcinoid tumor of the bronchus and lung; Z92.21 Personal history of antineoplastic chemotherapy; Z66 Do not resuscitate; Z86.73 Personal history of transient ischemic attack (TIA), and cerebral infarction without residual deficits; E78.5 Hyperlipidemia, unspecified; K58.9 Irritable bowel syndrome, unspecified; K21.9 Gastro-esophageal reflux disease without esophagitis; M19.90 Unspecified osteoarthritis, unspecified site; N32.81 Overactive bladder; E83.39 Other disorders of phosphorus metabolism; M81.0 Age-related osteoporosis without current pathological fracture; Z82.0 Family history of epilepsy and other diseases of the nervous system; Z96.643 Presence of artificial hip joint, bilateral
CPT/HCPCS: 80053; 80061; 80069; 83036; 83735; 84260; 85025; 86316; J0610; J1644; J3475; J3480